=== PATIENT | male | born 1965 | race Hispanic/Latino ===

== ENCOUNTER 2018-10-10 08:05 | Day surgery (SDC) | payer BC ==
--- OUTSIDE RECORDS SUMMARY | 2018-10-10 08:09 | XMS REPORT ---
:1965 [facility] Address [address] [place] [address] [place] [address] Care Team Providers Name Role Phone DORIS GUS Unavailable Unavailable PROVIDER, ED TEMP Unavailable Unavailable Camron Estevez Unavailable Unavailable Problems This patient has no known problems. Allergies, Adverse Reactions, Alerts This patient has no known allergies or adverse reactions. Medications This patient has no known medications. Results Test Description Test Time Test Comments Text Results Atomic Results Result Comments Urinalysis 2017-11-23 00:23:00 Test Item Value Reference Range Comments Urinalysis (test code=UACLR) YELLOW Yellow Urinalysis (test code=UACLY) CLEAR Clear Urinalysis (test code=SPGR) 1.011 1.002-1.036 Urinalysis (test code=BRINA) 6.0 5.0-9.0 Urinalysis (test code=UALEU) Negative Negative Urinalysis (test code=UANIT) Negative Negative Urinalysis (test code=PROUADIP) Negative mg/dL Neg-Trace Urinalysis (test code=GLUCU) Negative mg/dL Negative Urinalysis (test code=KETU) Negative mg/dL Negative Urinalysis (test code=UAUROB) 0.2 mg/dL 0.2-1.0 Urinalysis (test code=UABIL) Negative Negative Urinalysis (test code=UABLD) Negative Negative Urine Source: Urine [id number] 22:00:00 Test Item Value Reference Range Comments Chemistry (test 1.3 ng/mL 0-6.6 code=CKMBM-T) Chemistry (test Less than 0.010 < 0.028 code=TROPI-T) ng/mL Reference Range 0.00 - 0.028 ng/mL Negative 0.029 - 0.29 ng/mL Indeterminate Greater or Equal to 0.3 ng/mL Strongly suggests [place] [id number] 19:21:00 Test Item Value Reference Range Comments Chemistry (test code=NA-T) 138 mmol/L 136-145 Chemistry (test code=K-T) 4.7 mmol/L 3.5-5.1 Chemistry (test code=CL) 106 mmol/L 98-107 Chemistry (test code=CO2) 26 mmol/L 22-29 Chemistry (test code=ANGP) 11 mmol/L 10-20 Chemistry (test code=BUN) 19 mg/dL 8.4-25.7 Chemistry (test code=CREATT) 1.06 mg/dL 0.6-1.3 Chemistry (test 73 Reference Range for Estimated code=EGFRMDRD) GFR: Greater than 90 mL/min/1.73 m2NOTE:The MDRD equation has not been validated for use with theelderly (over 70 years of age), women, patientswith serious comorbid condition or persons with extremes ofbody size, muscle mass, or nutritional status. Chemistry (test code=GLU-T) 101 mg/dL 70-105 Chemistry (test code=CA) 9.5 mg/dL 7.8-10.44 Chemistry (test code=TBILI) 0.6 mg/dL 0.2-1.2 Chemistry (test code=TP) 7.1 g/dL 6.0-8.3 Chemistry (test code=ALB) 4.1 g/dL 3.5-5.0 Chemistry (test code=GLOB) 3.0 g/dL 2.4-3.5 Chemistry (test code=AG) 1.4 g/dL 1.2-2.2 Chemistry (test code=ALP) 77 U/L 40-150 Chemistry (test code=AST) 24 U/L 5-34 Chemistry (test code=ALT) 29 U/L 8-55 [id number] 19:21:00 Test Item Value Reference Range Comments Chemistry (test code=LIP) 27 U/L 8-78 [id number] 18:58:00 Test Item Value Reference Range Comments Hematology (test code=WBCT) 5.9 thou/uL 4.8-10.8 Hematology (test code=RBCT) 4.48 mill/uL 4.70-6.10 Hematology (test code=HGBT) 14.5 g/dL 14.0-18.0 Hematology (test code=HCTT) 42.9 % 42.0-52.0 Hematology (test code=MCV) 95.9 fl 80.0-94.0 Hematology (test code=MCH) 32.3 pg 27.0-31.0 Hematology (test code=MCHC) 33.7 g/dL 32.0-36.0 Hematology (test code=RDW) 11.3 % 11.5-14.5 Hematology (test code=PLTT) 208 thou/uL 130-400 Hematology (test code=MPV) 7.4 fL 7.4-10.4 Hematology (test code=%NEUT) 69.9 % 42.0-75.0 Hematology (test code=%LYMPH) 17.0 % 21.0-51.0 Hematology (test code=%MONO) 10.2 % 0.0-10.0 Hematology (test code=%EOS) 2.8 % 0.0-10.0 Hematology (test code=%BASO) 0.1 % 0.0-1.0 Hematology (test code=NEUT#) 4.2 thou/uL 1.40-6.50 Hematology (test code=LYMPH#) 1.0 thou/uL 1.20-3.40 Hematology (test code=MONO#) 0.6 thou/uL 0.11-0.59 Hematology (test code=EOS#) 0.2 thou/uL 0.0-0.7 Hematology (test code=BASO#) 0.0 thou/uL 0.0-0.2 [id number] 14:29:00 Test Item Value Reference Range Comments Urinalysis (test code=UACLR) YELLOW Yellow Urinalysis (test code=UACLY) CLEAR Clear Urinalysis (test code=SPGR) 1.026 1.002-1.036 Urinalysis (test code=BRINA) 6.0 5.0-9.0 Urinalysis (test code=UALEU) Negative Negative Urinalysis (test code=UANIT) Negative Negative Urinalysis (test code=PROUADIP) Negative mg/dL Neg-Trace Urinalysis (test code=GLUCU) Negative mg/dL Negative Urinalysis (test code=KETU) Negative mg/dL Negative Urinalysis (test code=UAUROB) 0.2 mg/dL 0.2-1.0 Urinalysis (test code=UABIL) Negative Negative Urinalysis (test code=UABLD) Negative Negative Urine Source: Urine [id number] 13:32:00 Test Item Value Reference Range Comments Chemistry (test code=NA-T) 138 mmol/L 136-145 Chemistry (test code=K-T) 4.2 mmol/L 3.5-5.1 Chemistry (test code=CL) 104 mmol/L 98-107 Chemistry (test code=CO2) 28 mmol/L 22-29 Chemistry (test code=ANGP) 10 mmol/L 10-20 Chemistry (test code=BUN) 16 mg/dL 8.4-25.7 Chemistry (test code=CREATT) 0.93 mg/dL 0.6-1.3 Chemistry (test 86 Reference Range for Estimated code=EGFRMDRD) GFR: Greater than 90 mL/min/1.73 m2NOTE:The MDRD equation has not been validated for use with theelderly (over 70 years of age), women, patientswith serious comorbid condition or persons with extremes ofbody size, muscle mass, or nutritional status. Chemistry (test code=GLU-T) 144 mg/dL 70-105 Chemistry (test code=CA) 9.7 mg/dL 7.8-10.44 Chemistry (test code=TBILI) 0.8 mg/dL 0.2-1.2 Chemistry (test code=TP) 7.4 g/dL 6.0-8.3 Chemistry (test code=ALB) 4.0 g/dL 3.5-5.0 Chemistry (test code=GLOB) 3.4 g/dL 2.4-3.5 Chemistry (test code=AG) 1.2 g/dL 1.2-2.2 Chemistry (test code=ALP) 91 U/L 40-150 Chemistry (test code=AST) 22 U/L 5-34 Chemistry (test code=ALT) 37 U/L 8-55 [id number] 13:10:00 Test Item Value Reference Range Comments Hematology (test code=WBCT) 7.1 thou/uL 4.8-10.8 Hematology (test code=RBCT) 4.78 mill/uL 4.70-6.10 Hematology (test code=HGBT) 15.6 g/dL 14.0-18.0 Hematology (test code=HCTT) 46.2 % 42.0-52.0 Hematology (test code=MCV) 96.6 fl 80.0-94.0 Hematology (test code=MCH) 32.6 pg 27.0-31.0 Hematology (test code=MCHC) 33.7 g/dL 32.0-36.0 Hematology (test code=RDW) 11.6 % 11.5-14.5 Hematology (test code=PLTT) 210 thou/uL 130-400 Hematology (test code=MPV) 7.2 fL 7.4-10.4 Hematology (test code=%NEUT) 86.3 % 42.0-75.0 Hematology (test code=%LYMPH) 6.3 % 21.0-51.0 Hematology (test code=%MONO) 4.8 % 0.0-10.0 Hematology (test code=%EOS) 1.9 % 0.0-10.0 Hematology (test code=%BASO) 0.7 % 0.0-1.0 Hematology (test code=NEUT#) 6.2 thou/uL 1.40-6.50 Hematology (test code=LYMPH#) 0.5 thou/uL 1.20-3.40 Hematology (test code=MONO#) 0.3 thou/uL 0.11-0.59 Hematology (test code=EOS#) 0.1 thou/uL 0.0-0.7 Hematology (test code=BASO#) 0.1 thou/uL 0.0-0.2 [id number] 14:04:00 Test Item Value Reference Range Comments Urinalysis (test code=UACLR) YELLOW Yellow Urinalysis (test code=UACLY) CLEAR Clear Urinalysis (test code=SPGR) 1.040 1.002-1.036 Urinalysis (test code=BRINA) 6.0 5.0-9.0 Urinalysis (test code=UALEU) Negative Negative Urinalysis (test code=UANIT) Negative Negative Urinalysis (test code=PROUADIP) Negative mg/dL Neg-Trace Urinalysis (test code=GLUCU) Negative mg/dL Negative Urinalysis (test code=KETU) Negative mg/dL Negative Urinalysis (test code=UAUROB) 0.2 mg/dL 0.2-1.0 Urinalysis (test code=UABIL) Negative Negative Urinalysis (test code=UABLD) Negative Negative Urine Source: Urine [id number] 12:39:00 Test Item Value Reference Range Comments Chemistry (test code=NA-T) 141 mmol/L 136-145 Chemistry (test code=K-T) 3.9 mmol/L 3.5-5.1 Chemistry (test code=CL) 108 mmol/L 98-107 Chemistry (test code=CO2) 26 mmol/L 22-29 Chemistry (test code=ANGP) 11 mmol/L 10-20 Chemistry (test code=BUN) 13 mg/dL 8.4-25.7 Chemistry (test code=CREATT) 0.93 mg/dL 0.6-1.3 Chemistry (test 86 Reference Range for Estimated code=EGFRMDRD) GFR: Greater than 90 mL/min/1.73 m2NOTE:The MDRD equation has not been validated for use with theelderly (over 70 years of age), women, patientswith serious comorbid condition or persons with extremes ofbody size, muscle mass, or nutritional status. Chemistry (test code=GLU-T) 111 mg/dL 70-105 Chemistry (test code=CA) 9.0 mg/dL 7.8-10.44 Chemistry (test code=TBILI) 0.7 mg/dL 0.2-1.2 Chemistry (test code=TP) 6.8 g/dL 6.0-8.3 Chemistry (test code=ALB) 3.8 g/dL 3.5-5.0 Chemistry (test code=GLOB) 3.0 g/dL 2.4-3.5 Chemistry (test code=AG) 1.3 g/dL 1.2-2.2 Chemistry (test code=ALP) 73 U/L 40-150 Chemistry (test code=AST) 17 U/L 5-34 Chemistry (test code=ALT) 18 U/L 8-55 [id number] 12:39:00 Test Item Value Reference Range Comments Chemistry (test code=LIP) 55 U/L 8-78 [id number] 12:16:00 Test Item Value Reference Range Comments Hematology (test code=WBCT) 4.1 thou/uL 4.8-10.8 Hematology (test code=RBCT) 4.42 mill/uL 4.70-6.10 Hematology (test code=HGBT) 14.1 g/dL 14.0-18.0 Hematology (test code=HCTT) 42.3 % 42.0-52.0 Hematology (test code=MCV) 95.8 fl 80.0-94.0 Hematology (test code=MCH) 31.9 pg 27.0-31.0 Hematology (test code=MCHC) 33.3 g/dL 32.0-36.0 Hematology (test code=RDW) 11.3 % 11.5-14.5 Hematology (test code=PLTT) 202 thou/uL 130-400 Hematology (test code=MPV) 7.5 fL 7.4-10.4 Hematology (test code=%NEUT) 77.2 % 42.0-75.0 Hematology (test code=%LYMPH) 14.3 % 21.0-51.0 Hematology (test code=%MONO) 6.1 % 0.0-10.0 Hematology (test code=%EOS) 2.0 % 0.0-10.0 Hematology (test code=%BASO) 0.4 % 0.0-1.0 Hematology (test code=NEUT#) 3.1 thou/uL 1.40-6.50 Hematology (test code=LYMPH#) 0.6 thou/uL 1.20-3.40 Hematology (test code=MONO#) 0.3 thou/uL 0.11-0.59 Hematology (test code=EOS#) 0.1 thou/uL 0.0-0.7 Hematology (test code=BASO#) 0.0 thou/uL 0.0-0.2
--- NOTE | 2018-10-10 08:26 | EKG ---
Test Date: 2018-10-10 Test Time: 08:08:22 Boat Engines Installer: ELVIN MEASUREMENT RESULTS: Intervals: Rate: 53 WA: 160 QRSD: 88 QT: 414 QTc: 388 [place]: P: 0 WA: 160 QRS: 4 T: 40 INTERPRETIVE STATEMENTS: Sinus bradycardia Otherwise normal ECG Compared to ECG 11/27/2016 09:55:33 Sinus rhythm no longer present Electronically Signed On 10-10-18 08:26:06 TELEGRAPHIC TYPEWRITER MECHANIC by Osmin Moya
[2018-10-10 08:34] LABS: Absolute Lymphocytes (CBC) 0.7 K/uL (0.7-4.9); Absolute Monocytes 0.5 K/uL (0.1-1.3); Absolute Neutrophil 4.5 K/uL (1.8-8.0); Basophils % 1.3 % (0-1.3); Eosinophils % 2.8 % (0-4.4); Hematocrit 41.7 % (39.6-49.0); Lymphocytes % 11.4 % (15.3-44.8); MCH 32.5 pg (27.0-35.0); MCV 91.5 fL (80-100); Monocytes % 7.9 % (3.3-12.3); RBC Red Blood Cell Count 4.56 M/uL (4.33-5.43)
[2018-10-10] MEDS ORDERED: Ringers Lactate 1,000 ML IV ONE (08:46)
[2018-10-10] MEDS ORDERED: PROPOFOL 200 MG/20 ML VIAL IV ONE (09:01)
[2018-10-10] MEDS ORDERED: MIDAZOLAM HCL 2 MG/2 ML INJ ONE (09:01)
[2018-10-10] MEDS ORDERED: FENTANYL CITR 100 MCG/2 ML ONE (09:01)
[2018-10-10] MEDS ORDERED: LIDOCAINE 2% MPF 5 ML VIAL ONE (09:01)
[2018-10-10] MEDS ORDERED: ROCURONIUM 50 MG/5 ML VIAL IV ONE (09:02)
[2018-10-10] MEDS ORDERED: ONDANSETRON HCL 40 MG/20 ML VIAL ONE (09:02)
[2018-10-10] MEDS ORDERED: LIDOCAINE 1% W/EPI 1:100,000 MDV 50 ML VIAL ONE (09:46)
[2018-10-10] MEDS ORDERED: EPINEPHRINE/PF 1 MG/ML AMP ONE (09:47)
--- NOTE | 2018-10-10 10:31 | P.BOP ---
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
[2018-10-10] MEDS ORDERED: GLYCOPYRROLATE 0.2 MG/ML SYR ONE (10:32)
[2018-10-10] MEDS ORDERED: NEOSTIGMINE 1 MG/ML -5 ML SYRINGE ONE (10:34)
[2018-10-10 11:35] VITALS: BP 95/56; TEMP 97.6; O2SAT 100
--- NOTE | 2018-10-12 01:46 | OP ---
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 Postoperative Diagnosis: History of nasopharyngeal cancer, concern for recurrence based on symptomol ogy. Pathology: Pending. No clinical evidence of recurrence. Indication For Procedure: Mr. 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 He presented with recurrence of symptoms similar to the time of his original diagnosis with a clinical exam in the office demonstrating very thick mucus overlying the n asopharynx and preventing full examination of the mucosal surface with poor tolerance of suctioning a nd office biopsy. The risks, benefits, and alternatives to the procedure were discussed with the pat ient who agreed to proceed. Description Of Procedure: The patient was brought to the operating room. He was placed under genera l anesthesia. The head of bed was turned 90 degrees. The nasal hairs were trimmed and the nasal cav ity was packed with Afrin-soaked pledgets. After time for effect, a 0-degree endoscope was used to p erform a nasal endoscopy with nasopharyngoscopy. There were thick mucopurulent secretions, which wer e very sticky adherent to the posterior pharyngeal wall. The secretions were carefully suctioned. T here was a scar along the posterior wall with small areas of inflammation superiorly. There was no u lceration or gross tumor noted. A large cup forceps was used to take a biopsy from the right and lef t nasopharyngeal wall along the posterior aspect. These were sent as 2 separate specimens to patholo gy for permanent section. An Afrin-soaked pledget was applied to the biopsy site for several minutes , then removed. The area was suctioned. There was no significant bleeding and the procedure was con cluded. The patient was then returned to care of anesthesia for awakening and extubation in the oper ating room, which proceeded without difficulty. The patient will be discharged home later today and follow up with Dr. Bernard as needed. I will plan to contact the patient via telephone regarding biopsy results. ISAEL Voice ID: [id number] Report ID: [id number]
== END 2018-10-10 12:15 | disposition home or self-care (01) ==
LOC: OR 08:05
PROVIDERS: ATTEND Otolaryngology
PROC: 09BN8ZX Excision of Nasopharynx, Via Natural or Artificial Opening Endoscopic, Diagnostic (ICD-10-PCS; principal; 2018-10-10 09:30)
DX: Z85.22 Personal history of malignant neoplasm of nasal cavities, middle ear, and accessory sinuses (principal); Z85.818 Personal history of malignant neoplasm of other sites of lip, oral cavity, and pharynx; Z92.21 Personal history of antineoplastic chemotherapy; Z92.3 Personal history of irradiation; F17.210 Nicotine dependence, cigarettes, uncomplicated; E03.9 Hypothyroidism, unspecified; K21.9 Gastro-esophageal reflux disease without esophagitis
CPT/HCPCS: 36415; 85025; 88305; 93005; J0171; J2250; J2405; J2704; J2710; J3010

== ENCOUNTER 2019-03-13 07:43 | Day surgery (SDC) | payer OTHER ==
--- OUTSIDE RECORDS SUMMARY | 2019-03-13 07:55 | XMS REPORT ---
:1965 [facility] Address [address] [place] [address] [place] [address] Care Team Providers Name Role Phone DORIS, GUS Unavailable Unavailable PROVIDER, ED TEMP Unavailable Unavailable GoenCamron Unavailable Unavailable Problems This patient has no [...] (test code=UABLD) Negative Negative Urine Source: Urine [id number] 22:00:00 Test Item Value Reference Range Comments Chemistry (test 1.3 ng/mL 0-6.6 code=CKMBM-T) Chemistry (test Less than 0.010 < 0.028 code=TROPI-T) ng/mL Reference Range 0.00 - 0.028 ng/mL Negative 0.029 - 0.29 ng/mL Indeterminate Greater or Equal to 0.3 ng/mL Strongly suggests [place] [id number] 19:21:00 Test Item Value Reference Range Comments [...] 5-34 Chemistry (test code=ALT) 29 U/L 8-55 [id number] 19:21:00 Test Item Value Reference Range Comments Chemistry (test code=LIP) 27 U/L 8-78 [id number] 18:58:00 Test Item Value Reference Range Comments [...] 0.0-0.7 Hematology (test code=BASO#) 0.0 thou/uL 0.0-0.2 [id number] 14:29:00 Test Item Value Reference Range Comments [...] (test code=UABLD) Negative Negative Urine Source: Urine [id number] 13:32:00 Test Item Value Reference Range Comments [...] 5-34 Chemistry (test code=ALT) 37 U/L 8-55 [id number] 13:10:00 Test Item Value Reference Range Comments [...] 0.0-0.7 Hematology (test code=BASO#) 0.1 thou/uL 0.0-0.2 [id number] 14:04:00 Test Item Value Reference Range Comments [...] (test code=UABLD) Negative Negative Urine Source: Urine [id number] 12:39:00 Test Item Value Reference Range Comments [...] 5-34 Chemistry (test code=ALT) 18 U/L 8-55 [id number] 12:39:00 Test Item Value Reference Range Comments Chemistry (test code=LIP) 55 U/L 8-78 [id number] 12:16:00 Test Item Value Reference Range Comments [...]
[2019-03-13] MEDS ORDERED: Ringers Lactate 1,000 ML IV ONE (08:31)
[2019-03-13] MEDS ORDERED: LIDOCAINE 1% MPF 5 ML VIAL ONE (09:15)
[2019-03-13] MEDS ORDERED: PROPOFOL 200 MG/20 ML VIAL IV ONE (09:15)
--- NOTE | 2019-03-13 09:53 | ENDO RPT ---
[address], [address] EGD PROCEDURE REPORT EXAM DATE: 03/13/2019 PATIENT NAME: Miguel Gonzalez MR#: [id number] BIRTHDATE: 1965 ATTENDING: Wiliam Price DR STATUS: outpatient BUGGYMAN: Galilea Wahl RN, Meño Melgoza, Milton Ryder RN, and Daphnie Melgoza INDICATIONS: The patient is a 53 yr old Male here for an EGD due to mid epigastric abdominal pain PROCEDURE PERFORMED: EGD with biopsy for H. pylori MEDICATIONS: Per Anesthesia. TOPICAL ANESTHETIC: none CONSENT: The patient understands the risks and benefits of the procedure and understands that these risks include, but are not limited to: sedation, allergic reaction, infection, perforation and/or bleeding. Alternative means of evaluation and treatment include, among others: physical exam, x-rays, and/or surgical intervention. The patient elects to proceed with this endoscopic procedure. DESCRIPTION OF PROCEDURE: During intra-op preparation period all mechanical medical equipment was checked for proper function. Hand hygiene and appropriate measures for infection prevention was taken. Procedure, possible complications, and alternatives including but not limited to the possibility of bleeding, perforation, tear, infection, sepsis, need for surgery, need for blood transfusion, and anesthesia related complications were explained to the patient. After the risks, benefits and alternatives of the procedure were thoroughly explained, Informed consent was verified, confirmed and timeout was successfully executed by the treatment team. The patient was placed in the left lateral position. The patient was anesthetized with topical anesthesia. Through the anesthetized oropharyngeal area, the scope was passed without any difficulty. The [id number] ([id number]) endoscope was introduced through the mouth and advanced to the second portion of the duodenum. Retroflexed views revealed no abnormalities. The gastroscope was then slowly withdrawn and removed. The mid and distal esophagus had appearance of eosinophlic esophagitis, the distal esophagus had LA class A esophagitis appearance with intermittent linear streaking. The stomach and multiple erosions at the pylorus. A biopsy for H. pylori was taken. A pedunculated polyp was found in the bulb of the duodenum which was about 2 cm in size and erythematous, polypoid, red in appearance. It was too large to be snared and therefore a biopsy was performed with standard forceps, Duodenitis was also noted in the duodenal bulb. ADVERSE EVENTS: There were no complications. IMPRESSIONS: 1. Multiple erosions were found at the pylorus 2. LA Class A esophagitis was found in the lower esophagus 3. Eosinophilic Esophagitis Appearance 4. 2 cm A pedunculated polyp was found in the bulb of the duodenum RECOMMENDATIONS: 1. acid suppression therapy 2. anti-reflux regimen 3. await biopsy results 4. follow-up: office 2 week(s) 5. avoid NSAIDS 6. follow-up of helicobacter pylori status, treat if indicated 7. CT scan REPEAT EXAM: Return in 2 week(s) for EGD. Will refer to GI Wiliam Price DR eSigned: Wiliam Price DR 03/13/2019 9:52 AM cc: CPT CODES: ICD9 CODES: PATIENT NAME: Miguel Gonzalez MR#: [id number]
--- NOTE | 2019-03-13 09:55 | ENDO RPT ---
[address], [address] COLONOSCOPY PROCEDURE REPORT EXAM DATE: 03/13/2019 PATIENT NAME: Miguel Gonzalez MR #: [id number] BIRTHDATE: 1965 ATTENDING: Wiliam Price DR STATUS: outpatient IMMIGRATION SERVICES OFFICER: Meño Melgoza, Daphnie Melgoza, Milton Ryder RN, and Galilea Wahl RN INDICATIONS: The patient is a 53 yr old Male here for a colonoscopy due to colon cancer screening PROCEDURE PERFORMED: Colonoscopy with biopsy - cold polypectomy MEDICATIONS: Per Anesthesia. ESTIMATED BLOOD LOSS: None CONSENT: The patient understands the risks and benefits of the procedure and understands that these risks include, but are not limited to: sedation, allergic reaction, infection, perforation and/or bleeding. Alternative means of evaluation and treatment include, among others: physical exam, x-rays, and/or surgical intervention. The patient elects to proceed with this endoscopic procedure. DESCRIPTION OF PROCEDURE: During intra-op preparation period all mechanical medical equipment was checked for proper function. Hand hygiene and appropriate measures for infection prevention was taken. Procedure, possible complications, alternatives including, but not limited to possibility of bleeding, perforation, tear, infection, sepsis, need for surgery, need for blood transfusion, were explained to the patient. After the risks, benefits and alternatives of the procedure were thoroughly explained, Informed consent was verified, confirmed and timeout was successfully executed by the treatment team. The patient was placed in the left lateral position. A digital rectal exam was performed and revealed internal hemorrhoids and A digital rectal exam was performed and revealed an enlarged prostate. After appropriate level of anesthesia, the scope was passed. The [id number] ([id number]) endoscope was introduced through the anus and advanced to the cecum, which was identified by both the appendix and ileocecal valve. The quality of the prep was fair. The instrument was then slowly withdrawn as the colon was fully examined. Scope withdrawal time was 10 minutes. COLON FINDINGS: A small smooth sessile polyp with a friable surface was found at the hepatic flexure. A polypectomy was performed with cold forceps. The resection was complete, the polyp tissue was completely retrieved and sent to histology. Small internal hemorrhoids were found. Retroflexed views revealed no abnormalities. The scope was then completely withdrawn from the patient and the procedure terminated. ADVERSE EVENTS: There were no complications. IMPRESSIONS: 1. Small sessile polyp was found at the hepatic flexure; polypectomy was performed in a piecemeal fashion with cold forceps 2. Small internal hemorrhoids RECOMMENDATIONS: 1. avoid NSAIDS 2. await biopsy results 3. fiber rich diet 4. follow-up: office 2 week(s) 5. Monitor for any evidence of rectal bleeding. 6. See EGD report. 7. CT scan 8. yearly hemoccult starting in 4 years 9. yearly hemoquant 10. hemorrhoidal hygiene RECALL: for Colonoscopy, pending biopsy results. Wiliam Price DR eSigned: Wiliam Price DR 03/13/2019 9:54 AM cc: CPT CODES: ICD9 CODES: PATIENT NAME: Miguel Gonzalez MR#: [id number]
[2019-03-13 11:03] VITALS: BP 116/75; TEMP 97.8; O2SAT 98
== END 2019-03-13 10:30 | disposition home or self-care (01) ==
LOC: OR 07:43
PROVIDERS: ATTEND Surgery
PROC: 0DB78ZX Excision of Stomach, Pylorus, Via Natural or Artificial Opening Endoscopic, Diagnostic (ICD-10-PCS; 2019-03-13)
PROC: 0DB58ZX Excision of Esophagus, Via Natural or Artificial Opening Endoscopic, Diagnostic (ICD-10-PCS; 2019-03-13)
PROC: 0DBL8ZX Excision of Transverse Colon, Via Natural or Artificial Opening Endoscopic, Diagnostic (ICD-10-PCS; principal; 2019-03-13 09:15)
PROC: 0DB98ZX Excision of Duodenum, Via Natural or Artificial Opening Endoscopic, Diagnostic (ICD-10-PCS; 2019-03-13 09:15)
DX: Z12.11 Encounter for screening for malignant neoplasm of colon (principal); D12.3 Benign neoplasm of transverse colon; K64.8 Other hemorrhoids; K29.80 Duodenitis without bleeding; K29.50 Unspecified chronic gastritis without bleeding; K21.0 Gastro-esophageal reflux disease with esophagitis; K31.7 Polyp of stomach and duodenum; K25.9 Gastric ulcer, unspecified as acute or chronic, without hemorrhage or perforation; E55.9 Vitamin D deficiency, unspecified; Z87.891 Personal history of nicotine dependence
CPT/HCPCS: 88305; 88312; J2704

== ENCOUNTER 2019-06-20 10:18 | Emergency (ER) | payer OTHER ==
--- OUTSIDE RECORDS SUMMARY | 2019-06-20 10:21 | XMS REPORT ---
:1965 [facility] Address [address] [place] [address] [place] [address] Care Team Providers Name Role Phone DORISGUS FITCH Unavailable Unavailable PROVIDER, ED TEMP Unavailable Unavailable [...] (test code=UABLD) Negative Negative Urine Source: Urine [id number] 22:00:00 Test Item Value Reference Range Comments Chemistry (test 1.3 ng/mL 0-6.6 code=CKMBM-T) Chemistry (test Less than 0.010 < 0.028 code=TROPI-T) ng/mL Reference Range 0.00 - 0.028 ng/mL Negative 0.029 - 0.29 ng/mL Indeterminate Greater or Equal to 0.3 ng/mL Strongly suggests [place] [id number] 19:21:00 Test Item Value Reference Range Comments [...] 5-34 Chemistry (test code=ALT) 29 U/L 8-55 [id number] 19:21:00 Test Item Value Reference Range Comments Chemistry (test code=LIP) 27 U/L 8-78 [id number] 18:58:00 Test Item Value Reference Range Comments [...] 0.0-0.7 Hematology (test code=BASO#) 0.0 thou/uL 0.0-0.2 [id number] 14:29:00 Test Item Value Reference Range Comments [...] (test code=UABLD) Negative Negative Urine Source: Urine [id number] 13:32:00 Test Item Value Reference Range Comments [...] 5-34 Chemistry (test code=ALT) 37 U/L 8-55 [id number] 13:10:00 Test Item Value Reference Range Comments [...] 0.0-0.7 Hematology (test code=BASO#) 0.1 thou/uL 0.0-0.2 [id number] 14:04:00 Test Item Value Reference Range Comments [...] (test code=UABLD) Negative Negative Urine Source: Urine [id number] 12:39:00 Test Item Value Reference Range Comments [...] 5-34 Chemistry (test code=ALT) 18 U/L 8-55 [id number] 12:39:00 Test Item Value Reference Range Comments Chemistry (test code=LIP) 55 U/L 8-78 [id number] 12:16:00 Test Item Value Reference Range Comments [...]
--- OUTSIDE RECORDS SUMMARY | 2019-06-20 10:21 | XMS REPORT | Summary of Care ---
:1965 Author Organization [facility] - [facility] Address [address] [place] [id number] Care Team Providers Name Role Phone Pcp, Patient Does Not Have A Primary Care Provider Reason for Visit Reason Comments Rash Auth/Cert Status Reason Specialty Diagnoses / Referred By Referred To Procedures Contact Contact [facility] [address] [place] [address] [place] [id number] Encounter Details Date Type Department Care Team Description 06/01/2019 Emergency [facility]Emergency Froilan Wynn DO Irritant contact Department [address] [place] [address]. dermatitis due to [address] [place] [address] RT 0711 plants, except food [place], [place] [id number] [place] [id number] (Primary Dx) [phone] Allergies Active Allergy Reactions Severity Noted Date Comments Penicillin Swelling 02/10/2016 documented as of this encounter (statuses as of 06/01/2019) Medications Medication Sig Dispensed Refills Start Date End Date Status methylPREDNISolone Take by mouth 21 Each 0 06/01/2019 Active (MEDROL, AMELIA,) 4 mg SEE-INSTRUCTIONS tabletsIndications: . follow package Irritant contact directions dermatitis due to plants, except food permethrin 5 % Apply to 1 Tube 0 06/01/2019 Active creamIndications: area(s) once now 9 Irritant contact for 1 dose. dermatitis due to plants, except food documented as of this encounter (statuses as of 06/01/2019) Active Problems Not on filedocumented as of this encounter (statuses as of 06/01/2019) Social History Tobacco Use Types Packs/Day Years Used Date Never Assessed Sex Assigned at Date Recorded Not on file Job Start Date Occupation Industry Not on file Not on file Not on file Travel History Travel Start Travel End No recent travel history available. documented as of this encounter Last Filed Vital Signs Vital Sign Reading Time Taken Comments Blood Pressure 142/85 06/01/2019 8:48 AM CDT Pulse 87 06/01/2019 8:48 AM CDT Temperature 36.8 C (98.3 F) 06/01/2019 8:48 AM CDT Respiratory Rate 18 06/01/2019 8:48 AM CDT Oxygen Saturation 97% 06/01/2019 8:48 AM CDT Inhaled Oxygen Concentration - - Weight 90.7 kg (200 lb) 06/01/2019 8:48 AM CDT Height - - Body Mass Index 26.39 02/10/2016 5:09 PM CDT documented in this encounter Discharge Instructions Froilan Cabrera DO - 06/01/2019 DIAGNOSIS Diagnoses that have been ruled out: None Diagnoses that are still under consideration: None Final diagnoses: Irritant contact dermatitis due to plants, except food NO LIFE-THREATENING FINDINGS ON TODAY'S EXAM. PROCEDURES IN THE ER TODAY: No orders of the defined types were placed in this encounter. MEDICATIONS ADMINISTERED IN THE ER TODAY AND DISCHARGE MEDICATIONS: Orders Placed This Encounter Medications methylPREDNISolone (MEDROL, AMELIA,) 4 mg tablets permethrin 5 % cream FOLLOW-UP RECOMMENDATIONS: RECOMMEND FOLLOW-UP WITH A PRIMARY CARE PROVIDER OR SPECIALIST IN 2-5 DAYS, ESPECIALLY IF NO IMPROVEMENT IN SYMPTOMS. MAY FOLLOW-UP WITH A PROVIDER OF YOUR CHOICE, SUCH : 1. A PHYSICIAN OF YOUR CHOICE 2. [facility], . LOCATIONS IN [facility] 3. [facility], [address] [place] [address]; [phone] OR, IF YOU WISH TO FOLLOW-UP WITHIN THE [facility], MAY TRY THESE OPTIONS (CLINIC APPOINTMENTS AVAILABLE ON JRKP-GO-OLIV BASIS): 1. SCHEDULE AN APPOINTMENT ONLINE AT [email or web address] 2. OR CALL THE [facility] AT OR 3. OR CALL YOUR [facility] PHYSICIAN'S OFFICE DIRECTLY IF YOU ARE ALREADY AN ESTABLISHED [facility] PATIENT. RETURN TO ER FOR WORSENING OF SYMPTOMS. documented in this encounter Plan of Treatment Health Maintenance Due Date Last Done Comments HEPATITIS C (HCV) SCREEN 1965 DTaP,Tdap,and Td Vaccines (1 - 1984 Tdap) COLONOSCOPY 2015 Zoster Recombinant Vaccine 2015 (SHINGRIX) (1 of 2) INFLUENZA VACCINE 07/05/2019 PNEUMOCOCCAL 0-64 YEARS COMBINED Aged Out No longer eligible based on SERIES patient's age to complete this topic documented as of this encounter Procedures Procedure Name Priority Date/Time Associated Diagnosis Comments NOTICE OF PRIVACY Routine 06/01/2019 8:36 AM CDT PRACTICES CONSENT/REFUSAL FOR Routine 06/01/2019 8:36 AM CDT DIAGNOSIS AND TREATMENT documented in this encounter Results Not on filedocumented in this encounter Visit Diagnoses Diagnosis Irritant contact dermatitis due to plants, except food - Primary Contact dermatitis and other eczema due to plants (except food) documented in this encounter (Home) [place] [address] documented as of this encounter
[2019-06-20] MEDS ORDERED: NA CHLORIDE 0.9% 1,000 ML ONE ×2 (11:15→13:49)
[2019-06-20] MEDS ORDERED: PROMETHAZINE 25 MG/ML VIAL ONE (11:15)
[2019-06-20 11:23] LABS: Absolute Lymphocytes (CBC) 0.8 K/uL (0.7-4.9); Basophils % 1.3 % (0-1.3); Hematocrit 39.9 % (39.6-49.0); Lymphocytes % 14.5 % (15.3-44.8); MPV 8.7 fL (7.6-11.3); RBC Red Blood Cell Count 4.32 M/uL (4.33-5.43)
[2019-06-20 11:49] LABS: Albumin 3.4 g/dL (3.4-5.0); Bilirubin Direct 0.2 mg/dL (0-0.2); Bilirubin Total 0.5 mg/dL (0.2-1.0); Potassium 3.8 mmol/L (3.5-5.1); Protein, Total 6.7 g/dL (6.4-8.2)
[2019-06-20 11:56] LABS: Urine Blood 1+ (NEG); Urine Glucose NEGATIVE (NEG); Urine Protein NEGATIVE (NEG); Urine Specific Gravity 1.025 (1.005-1.030); Urine pH 5.5 (5.0-7.0)
[2019-06-20 11:56] LABS: Urine Bacteria <20 /HPF (NONE SEEN); Urine Culture Reflex Order NOT NEEDED; Urine Mucus 4+ /HPF (NONE SEEN)
[2019-06-20 13:02] LABS: Thyroid Stimulating Hormone 3.64 uIU/mL (0.360-3.740)
--- NOTE | 2019-06-20 13:27 | RAD REPORT ---
EXAM DESCRIPTION: CTAbdomen Pelvis W Contrast - 06/20/2019 1:07 pm CLINICAL HISTORY: Abdominal pain. ABD PAIN COMPARISON: CT ABD PELVIS W CONTRAST dated 05/01/2014; CT ABD PELVIS W CONTRAST dated 04/04/2013; CT AB D PELVIS W CONTRAST dated 12/22/2011 TECHNIQUE: Biphasic CT imaging of the abdomen and pelvis was performed with 100 ml non-ionic IV cont rast. All CT scans are performed using dose optimization technique as appropriate and may include automated exposure control or mA/KV adjustment according to patient size. FINDINGS: Emphysematous changes are present in the lung bases. The liver, spleen, pancreas, adrenal glands and kidneys are within normal limits. Cholecystectomy cli ps. No bowel obstruction, free air, free fluid or abscess. Moderate stool in the colon. The appendix is n ormal. No evidence of significant lymphadenopathy. No suspicious bony findings. IMPRESSION: No acute intra-abdominal or pelvic finding.
[2019-06-20] MEDS ORDERED: BISACODYL E.C. 5 MG TAB PO ONE (13:48)
[2019-06-20] MEDS ORDERED: BISACODYL 10 MG RECTAL SUPP ONE (13:49)
--- NOTE | 2019-06-20 14:33 | ER ---
Nurse's Notes [facility] Name: Miguel Gonzalez Age: 53 yrs Sex: Male : 1965 Arrival Date: 06/20/2019 Time: 10:21 Bed 6 Private MD: None, None Diagnosis: Volume depletion;Hematuria, unspecified;Constipation, unspecified Presentation: 06/20 10:36 Presenting complaint: Malaise and generalized weakness x 1 week, maribell blood in urine hb and LLQ pain this morning. Pt also reports small bowel mass to be removed next week. Transition of care: patient was not received from another setting of care. Onset of symptoms was June 20, 2019. Risk Assessment: Do you want to hurt yourself or someone else? Patient reports no desire to harm self or others. Initial Sepsis Screen: Does the patient meet any 2 criteria? No. Patient's initial sepsis screen is negative. Does the patient have a suspected source of infection? No. Patient's initial sepsis screen is negative. Care prior to arrival: None. 10:36 Method Of Arrival: Ambulatory hb 10:36 Acuity: NASRA 3 hb Triage Assessment: 10:38 General: Appears in no apparent distress. Behavior is calm, cooperative. Pain: Pain hb currently is 10 out of 10 on a pain scale. EENT: No signs and/or symptoms were reported regarding the EENT system. Neuro: Level of Consciousness is awake, alert, obeys commands, Oriented to person, place, time, situation. Cardiovascular: Capillary refill < 3 seconds Patient's skin is warm and dry. Respiratory: Airway is patent Respiratory effort is even, unlabored, Respiratory pattern is regular, symmetrical. GI: Reports lower abdominal pain. : Reports blood in urine. Derm: Skin is intact, is healthy with good turgor. Musculoskeletal: No signs and/or symptoms reported regarding the musculoskeletal system. Historical: - Allergies: 10:38 PENICILLINS; hb - Home Meds: 10:38 None [Active]; hb - PMHx: 10:38 radiation treatment; throat cancer; hb - PSHx: 10:38 Cholecystectomy; Hernia repair; feeding tube; Left Foot; Left Arm; hb - Immunization history:: Adult Immunizations up to date. - Social history:: Smoking status: Patient/guardian denies using tobacco. - Ebola Screening: : No symptoms or risks identified at this time. Screenin:40 Abuse screen: Denies threats or abuse. Denies injuries from another. Nutritional hb screening: No deficits noted. Tuberculosis screening:. Fall Risk None identified. Assessment: 10:40 General: see triage assessment. hb 11:00 Reassessment: Patient appears in no apparent distress at this time. No changes from hb previously documented assessment. Patient and/or family updated on plan of care and expected duration. Pain level reassessed. Patient is alert, oriented x 3, equal unlabored respirations, skin warm/dry/pink. 12:00 Reassessment: Patient appears in no apparent distress at this time. No changes from hb previously documented assessment. Patient and/or family updated on plan of care and expected duration. Pain level reassessed. Patient is alert, oriented x 3, equal unlabored respirations, skin warm/dry/pink. 13:00 Reassessment: Patient appears in no apparent distress at this time. No changes from hb previously documented assessment. Patient and/or family updated on plan of care and expected duration. Pain level reassessed. Patient is alert, oriented x 3, equal unlabored respirations, skin warm/dry/pink. 14:26 Reassessment: Patient appears in no apparent distress at this time. Patient and/or rv family updated on plan of care and expected duration. Pain level reassessed. Patient is alert, oriented x 3, equal unlabored respirations, skin warm/dry/pink. patient refused Bisacodyl suppository. referred to Sylvia. patient able to ambulate on the way to the restroom. Vital Signs: 10:38 BP 119 / 84; Pulse 89; Resp 16; Temp 97.9; Pulse Ox 100% on R/A; Weight 77.11 kg; hb Height 5 ft. 8 in. (172.72 cm); Pain 10/10; 11:00 BP 105 / 81; Pulse 55; Resp 14; Pulse Ox 100% on R/A; hb 12:00 BP 91 / 66; Pulse 55; Resp 16; Pulse Ox 99% on R/A; hb 13:00 BP 94 / 74; Pulse 66; Resp 16; Pulse Ox 98% on R/A; hb 13:30 BP 94 / 74; Pulse 49; Resp 15; Pulse Ox 100% on R/A; rv 14:00 BP 118 / 86; Pulse 58; Resp 15; Pulse Ox 99% on R/A; rv 14:25 BP 138 / 90; Pulse 57; Resp 16; Pulse Ox 98% on R/A; rv 10:38 Body Mass Index 25.85 (77.11 kg, 172.72 cm) hb ED Course: 10:21 Patient arrived in ED. mr 10:21 None, None is Private Physician. mr 10:28 Janelle Albarran, RN is Primary Nurse. hb 10:37 [facility] snw 10:37 Ebenezer Christensen MD is Attending Physician. snw 10:37 Triage completed. hb 10:38 Arm band placed on. hb 10:40 Patient has correct armband on for positive identification. Bed in low position. Call hb light in reach. Side rails up X 1. 13:07 CT completed. Patient tolerated procedure well. Patient moved back from CT. bq 13:08 CT Abd/Pelvis - PO and IV Contrast In Process Unspecified. EDMS 14:52 No provider procedures requiring assistance completed. Inserted saline lock: 20 gauge rv in right antecubital area, using aseptic technique. IV discontinued, intact, bleeding controlled, No redness/swelling at site. Pressure dressing applied. Administered Medications: 11:19 Drug: NS 0.9% 1000 ml Route: IV; Rate: 1 bolus; Site: right antecubital; hb 14:28 Follow up: IV Status: Completed infusion; IV Intake: 1000ml rv 11:19 Drug: Phenergan 12.5 mg Route: IVP; Site: right antecubital; hb 14:28 Follow up: Response: No adverse reaction; Nausea is decreased rv 14:00 Drug: NS 0.9% 1000 ml Route: IV; Rate: 1 bolus; Site: right antecubital; rv 14:51 Follow up: IV Status: Completed infusion; IV Intake: 1000ml rv 14:25 Drug: Bisacodyl 10 mg Route: PO; rv 14:51 Follow up: Response: No adverse reaction rv 14:25 Not Given (Patient Refused): Bisacodyl Suppository 10 mg HI once rv Intake: 14:28 IV: 1000ml; Total: 1000ml. rv 14:51 IV: 1000ml; Total: 2000ml. rv Outcome: 14:32 Discharge ordered by . snw 14:52 Discharged to home ambulatory, with family. rv 14:52 Condition: good 14:52 Discharge instructions given to patient, family, Instructed on discharge instructions, follow up and referral plans. medication usage, Demonstrated understanding of instructions, follow-up care, medications, Prescriptions given X 1. 14:52 Patient left the ED. rv Signatures: Dispatcher [employer] EDMS Sylvia Jacobsen, SALES AND MERCHANDISING REPRESENTATIVE-C SALES AND MERCHANDISING REPRESENTATIVE-Csnw Mario Constance mr Barbaraelmo, Janelle Cantu, MICHAEL RN Boyd Rahman RN RN rv
--- NOTE | 2019-06-20 14:33 | EDPHYS ---
Physician Documentation [facility] Name: Miguel Gonzalez Age: 53 yrs Sex: Male : 1965 Arrival Date: 06/20/2019 Time: 10:21 Bed 6 Private MD: None, None ED Physician Ebenezer Christensen HPI: 06/20 11:44 This 53 yrs old Male presents to ER via Ambulatory with complaints of blood in snw urine. 11:44 The patient presents with urinary symptoms, hematuria. Onset: The symptoms/episode snw began/occurred suddenly. Associated signs and symptoms: The patient has no apparent associated signs or symptoms. Severity of symptoms: At their worst the symptoms were moderate. The patient has not experienced similar symptoms in the past. It is unknown whether or not the patient has recently seen a physician. pt states he has an enlarged prostate but slept all night and then had a large void this am with the end of the stream painful with large amount of blood. Historical: - Allergies: 10:38 PENICILLINS; hb - Home Meds: 10:38 None [Active]; hb - PMHx: 10:38 radiation treatment; throat cancer; hb - PSHx: 10:38 Cholecystectomy; Hernia repair; feeding tube; Left Foot; Left Arm; hb - Immunization history:: Adult Immunizations up to date. - Social history:: Smoking status: Patient/guardian denies using tobacco. - Ebola Screening: : No symptoms or risks identified at this time. ROS: 11:43 Eyes: Negative for injury, pain, redness, and discharge, ENT: Negative for injury, snw pain, and discharge, Neck: Negative for injury, pain, and swelling, Cardiovascular: Negative for chest pain, palpitations, and edema, Respiratory: Negative for shortness of breath, cough, wheezing, and pleuritic chest pain, Abdomen/GI: Negative for abdominal pain, nausea, vomiting, diarrhea, and constipation, Back: Negative for injury and pain, MS/Extremity: Negative for injury and deformity, Skin: Negative for injury, rash, and discoloration, Neuro: Negative for headache, weakness, numbness, tingling, and seizure, Psych: Negative for depression, anxiety, suicide ideation, homicidal ideation, and hallucinations. 11:43 Constitutional: Positive for malaise. 11:43 : Positive for hematuria. Exam: 11:41 Constitutional: This is a well developed, well nourished patient who is awake, alert, snw and in no acute distress. Head/Face: Normocephalic, atraumatic. Eyes: Pupils equal round and reactive to light, extra-ocular motions intact. Lids and lashes normal. Conjunctiva and sclera are non-icteric and not injected. Cornea within normal limits. Periorbital areas with no swelling, redness, or edema. ENT: Nares patent. No nasal discharge, no septal abnormalities noted. Tympanic membranes are normal and external auditory canals are clear. Oropharynx with no redness, swelling, or masses, exudates, or evidence of obstruction, uvula midline. Mucous membranes moist. Neck: Trachea midline, no thyromegaly or masses palpated, and no cervical lymphadenopathy. Supple, full range of motion without nuchal rigidity, or vertebral point tenderness. No Meningismus. Chest/axilla: Normal chest wall appearance and motion. Nontender with no deformity. No lesions are appreciated. Cardiovascular: Regular rate and rhythm with a normal S1 and S2. No gallops, murmurs, or rubs. Normal PMI, no JVD. No pulse deficits. Respiratory: Lungs have equal breath sounds bilaterally, clear to auscultation and percussion. No rales, rhonchi or wheezes noted. No increased work of breathing, no retractions or nasal flaring. Back: No spinal tenderness. No costovertebral tenderness. Full range of motion. Skin: Warm, dry with normal turgor. Normal color with no rashes, no lesions, and no evidence of cellulitis. MS/ Extremity: Pulses equal, no cyanosis. Neurovascular intact. Full, normal range of motion. Neuro: Awake and alert, GCS 15, oriented to person, place, time, and situation. Cranial nerves II-XII grossly intact. Motor strength 5/5 in all extremities. Sensory grossly intact. Cerebellar exam normal. Normal gait. Psych: Awake, alert, with orientation to person, place and time. Behavior, mood, and affect are within normal limits. 11:41 Abdomen/GI: Inspection: abdomen appears normal, Bowel sounds: normal, Palpation: mild abdominal tenderness, in the left lower quadrant. Vital Signs: 10:38 BP 119 / 84; Pulse 89; Resp 16; Temp 97.9; Pulse Ox 100% on R/A; Weight 77.11 kg; hb Height 5 ft. 8 in. (172.72 cm); Pain 10/10; 11:00 BP 105 / 81; Pulse 55; Resp 14; Pulse Ox 100% on R/A; hb 12:00 BP 91 / 66; Pulse 55; Resp 16; Pulse Ox 99% on R/A; hb 13:00 BP 94 / 74; Pulse 66; Resp 16; Pulse Ox 98% on R/A; hb 13:30 BP 94 / 74; Pulse 49; Resp 15; Pulse Ox 100% on R/A; rv 14:00 BP 118 / 86; Pulse 58; Resp 15; Pulse Ox 99% on R/A; rv 14:25 BP 138 / 90; Pulse 57; Resp 16; Pulse Ox 98% on R/A; rv 10:38 Body Mass Index 25.85 (77.11 kg, 172.72 cm) hb MDM: 10:38 Patient medically screened. snw 14:33 Data reviewed: vital signs, nurses notes. Data interpreted: Pulse oximetry: on room air snw is 98 %. Counseling: I had a detailed discussion with the patient and/or guardian regarding: the historical points, exam findings, and any diagnostic results supporting the discharge/admit diagnosis, lab results, radiology results, the need for outpatient follow up, to return to the emergency department if symptoms worsen or persist or if there are any questions or concerns that arise at home. Special discussion: Based on the patient's Hx, exam, and Dx evaluation, there is no indication for emergent surgery or inpatient Tx. It is understood by the patient/guardian that if the Sx's persist or worsen they need to return immediately for re-evaluation. Based on the history and exam findings, there is no indication for further emergent testing or inpatient evaluation. I discussed with the patient/guardian the need to see the hoist operator for further evaluation of the symptoms. I discussed with the patient/guardian the need to see the primary care provider for further evaluation of the symptoms. 06/20 10:38 Order name: Urine Culture snw 06/20 10:38 Order name: Urine Microscopic Only; Complete Time: 11:59 snw 06/20 10:57 Order name: Basic Metabolic Panel; Complete Time: 13:04 eb 06/20 10:57 Order name: CBC with Diff; Complete Time: 11:29 eb 06/20 10:57 Order name: Creatinine for Radiology; Complete Time: 11:46 eb 06/20 10:57 Order name: Hepatic Function; Complete Time: 13:04 eb 06/20 10:57 Order name: Lipase; Complete Time: 13:04 eb 06/20 10:57 Order name: CT Abd/Pelvis - PO and IV Contrast; Complete Time: 14:00 eb 06/20 11:06 Order name: Urine Dipstick--Ancillary (enter results); Complete Time: 11:59 eb 06/20 12:24 Order name: Add On-Lab snw 06/20 12:26 Order name: Thyroid Stimulating Hormone; Complete Time: 13:04 EDMS 06/20 10:38 Order name: Urine Dipstick-Ancillary (obtain specimen); Complete Time: 11:14 snw 06/20 10:57 Order name: IV Saline Lock; Complete Time: 11:14 eb 06/20 10:57 Order name: Labs collected and sent; Complete Time: 11:14 eb Administered Medications: 11:19 Drug: NS 0.9% 1000 ml Route: IV; Rate: 1 bolus; Site: right antecubital; hb 14:28 Follow up: IV Status: Completed infusion; IV Intake: 1000ml rv 11:19 Drug: Phenergan 12.5 mg Route: IVP; Site: right antecubital; hb 14:28 Follow up: Response: No adverse reaction; Nausea is decreased rv 14:00 Drug: NS 0.9% 1000 ml Route: IV; Rate: 1 bolus; Site: right antecubital; rv 14:51 Follow up: IV Status: Completed infusion; IV Intake: 1000ml rv 14:25 Drug: Bisacodyl 10 mg Route: PO; rv 14:51 Follow up: Response: No adverse reaction rv 14:25 Not Given (Patient Refused): Bisacodyl Suppository 10 mg IA once rv Disposition: 06/20/19 14:32 Discharged to Home. Impression: Volume depletion, Hematuria, unspecified, Constipation, unspecified. - Condition is Stable. - Discharge Instructions: Constipation, Adult, Dehydration, Adult, Hematuria, Adult, Rehydration, Adult. - Prescriptions for Miralax 17 gram/dose Oral - take 1 packet by ORAL route once daily dilute powder in 8 ounces of water or juice; 1 box. - Work release form, Medication Reconciliation Form, Thank You Letter, Antibiotic Education, Prescription Opioid Use, Family Work Release form. - Follow up: Private Physician; When: 2 - 3 days; Reason: Recheck today's complaints, Continuance of care, Re-evaluation by your physician. Follow up: Emergency Department; When: As needed; Reason: Worsening of condition. Signatures: Dispatcher [employer] EDMS Sylvai Jacobsen, SUMMER ASSOCIATE-C SUMMER ASSOCIATE-Csnw Janelle Albarran, MICHAEL RN Kenyatta Cherry Ronaldo, RN RN rv Corrections: (The following items were deleted from the chart) 14:52 14:32 06/20/2019 14:32 Discharged to Home. Impression: Volume depletion; Hematuria, rv unspecified; Constipation, unspecified. Condition is Stable. Discharge Instructions: Constipation, Adult, Dehydration, Adult, Hematuria, Adult, Rehydration, Adult. Prescriptions for Miralax 17 gram/dose Oral - take 1 packet by ORAL route once daily dilute powder in 8 ounces of water or juice; 1 box. and Forms are Work release form, Medication Reconciliation Form, Thank You Letter, Antibiotic Education, Prescription Opioid Use. Follow up: Private Physician; When: 2 - 3 days; Reason: Recheck today's complaints, Continuance of care, Re-evaluation by your physician. Follow up: Emergency Department; When: As needed; Reason: Worsening of condition. snw
[2019-06-20 15:36] VITALS: TEMP 97.9
[2019-06-20 15:44] VITALS: BP 138/90; O2SAT 98
== END 2019-06-20 14:52 | disposition home or self-care (01) ==
LOC: ER 10:18
DX: E86.9 Volume depletion, unspecified (principal); K59.00 Constipation, unspecified; Z88.0 Allergy status to penicillin; Z85.819 Personal history of malignant neoplasm of unspecified site of lip, oral cavity, and pharynx
CPT/HCPCS: 96361; 87088; 85025; 87086; 80048; 36415; 80076; 84443; 83690; 74177; 96374; 99284; Q9967; J2550; J7030 ×2; 81003; 81015

== ENCOUNTER 2019-08-05 10:48 | Emergency (ER) | payer OTHER ==
--- NOTE | 2019-08-05 12:04 | RAD REPORT ---
EXAM DESCRIPTION: CT - [id number] - 08/05/2019 11:55 am CLINICAL HISTORY: Trauma, head and neck injury. head and neck trauma, hit by tree limb COMPARISON: SOFT TISSUE NECK W CONTRAST dated 10/22/2015 TECHNIQUE: Axial 5 mm thick images of the head were obtained. Axial 2 mm thick images of the cervical spine were obtained with sagittal and coronal reconstruction images generated and reviewed. All CT scans are performed using dose optimization technique as appropriate and may include automated exposure control or mA/KV adjustment according to patient size. FINDINGS: CT HEAD WITHOUT CONTRAST: No acute hemorrhage, hydrocephalus or extra-axial collection is identified.No areas of brain edema or midline shift. The paranasal sinuses and mastoids are essentially clear.The calvarium is intact. CT CERVICAL SPINE WITHOUT CONTRAST: No fracture or subluxation.Mild spondylosis.No prevertebral soft tissues swelling is identified. IMPRESSION: No acute intracranial or cervical spine findings.
--- NOTE | 2019-08-05 12:14 | EDPHYS ---
Physician Documentation [facility] Name: Miguel Gonzalez Age: 53 yrs Sex: Male : 1965 Arrival Date: 08/05/2019 Time: 10:53 Bed 19 Private MD: Mansi Siddiqi ED Physician Waqar Frey HPI: 08/05 11:49 This 53 yrs old Male presents to ER via Ambulatory with complaints of Neck rn Problem. 11:49 The patient or guardian complains of an injury, pain. The symptoms are located rn diffusely. Onset: The symptoms/episode began/occurred 2 day(s) ago. Context: The problem was sustained outdoors, The neck injury/problem resulted from a direct blow. Associated signs and symptoms: Pertinent positives: headache, Pertinent negatives: bladder incontinence, bowel incontinence, nausea, numbness, tingling, vomiting, weakness. The pain does not radiate. Modifying factors: The symptoms are alleviated by remaining still, the symptoms are aggravated by movement, pressure. Severity of symptoms: At their worst the symptoms were mild, in the emergency department the symptoms are unchanged. The patient has not experienced similar symptoms in the past. Reports mowing, was walking, hit top of head on tree limb, no LOC, snapped neck back, not on blood thinners, and denies focal neurological problems. States was able to walk and didn't feel bad the first day, now 2 days out is having more pain on sides of neck and headache. No vomiting. No other injuries.. Historical: - Allergies: 10:58 PENICILLINS; hb - PMHx: 10:58 radiation treatment; throat cancer; hb - PSHx: 10:58 Cholecystectomy; Hernia repair; feeding tube; Left Foot; Left Arm; hb - Immunization history:: Adult Immunizations up to date. - Social history:: Smoking status: Patient uses tobacco products, smokes one-half pack cigarettes per day. - Ebola Screening: : No symptoms or risks identified at this time. - Family history:: not pertinent. - Hospitalizations: : No recent hospitalization is reported. ROS: 11:49 Constitutional: Negative for fever, chills, and weight loss, Eyes: Negative for injury, rn pain, redness, and discharge, ENT: Negative for injury, pain, and discharge, Neck: + neck pain Neuro: + headache Exam: 11:49 Constitutional: This is a well developed, well nourished patient who is awake, alert, rn and in no acute distress. Head/Face: Normocephalic, atraumatic. Eyes: Pupils equal round and reactive to light, extra-ocular motions intact. Lids and lashes normal. Conjunctiva and sclera are non-icteric and not injected. Cornea within normal limits. Periorbital areas with no swelling, redness, or edema. ENT: No oral trauma Neck: No midline tenderness, + pericervical muscular tenderness, no masses Respiratory: No increased work of breathing, no retractions or nasal flaring. Abdomen/GI: soft, non-tender Back: No spinal tenderness. No costovertebral tenderness. Full range of motion. MS/ Extremity: Pulses equal, no cyanosis. Neurovascular intact. Full, normal range of motion. Equal circumference. Neuro: Awake and alert, GCS 15, oriented to person, place, time, and situation. Cranial nerves II-XII grossly intact. Motor strength 5/5 in all extremities. Sensory grossly intact. Cerebellar exam normal. Vital Signs: 10:58 BP 118 / 88; Pulse 72; Resp 16; Temp 97.8; Pulse Ox 100% on R/A; Weight 83.91 kg; hb Height 6 ft. 2 in. (187.96 cm); Pain 8/10; 10:58 Body Mass Index 23.75 (83.91 kg, 187.96 cm) hb MDM: 11:30 Patient medically screened. rn 12:12 Differential diagnosis: arthritis, Cervical Raiculopathy cervical strain, fracture, rn torticollis, Whiplash Injury. Data reviewed: vital signs, nurses notes, radiologic studies, CT scan, and as a result, I will discharge patient. Counseling: I had a detailed discussion with the patient and/or guardian regarding: the historical points, exam findings, and any diagnostic results supporting the discharge/admit diagnosis, radiology results, the need for outpatient follow up, to return to the emergency department if symptoms worsen or persist or if there are any questions or concerns that arise at home. Special discussion: I discussed with the patient/guardian in detail that at this point there is no indication for admission to the hospital. It is understood, however, that if the symptoms persist or worsen the patient needs to return immediately for re-evaluation. 08/05 11:41 Order name: CT Head C Spine; Complete Time: 12:12 rn Administered Medications: No medications were administered Disposition: 08/05/19 12:13 Discharged to Home. Impression: Strain of muscle, fascia and tendon at neck level, Superficial injury of head. - Condition is Stable. - Discharge Instructions: Head Injury, Adult, Cervical Sprain, [id number]. - Prescriptions for Ultram 50 mg Oral Tablet - take 1 tablet by ORAL route every 6 hours As needed; 15 tablet. Cyclobenzaprine 10 mg Oral Tablet - take 1 tablet by ORAL route every 8 hours As needed; 20 tablet. - Medication Reconciliation Form, Thank You Letter, Antibiotic Education, Prescription Opioid Use form. - Follow up: Private Physician; When: As needed; Reason: Recheck today's complaints, Re-evaluation by your physician. - Problem is new. - Symptoms have improved. Signatures: Dispatcher [employer] EDLeandra Ratliff RN RN iw Nieto, Roman, MD MD rn Baxter, Heather, RN RN Corrections: (The following items were deleted from the chart) 12:22 12:13 08/05/2019 12:13 Discharged to Home. Impression: Strain of muscle, fascia and iw tendon at neck level; Superficial injury of head. Condition is Stable. Forms are Medication Reconciliation Form, Thank You Letter, Antibiotic Education, Prescription Opioid Use. Follow up: Private Physician; When: As needed; Reason: Recheck today's complaints, Re-evaluation by your physician. Problem is new. Symptoms have improved. rn
--- NOTE | 2019-08-05 12:14 | ER ---
Nurse's Notes [facility] [place], [place] Name: Miguel Gonzalez Age: 53 yrs Sex: Male : 1965 Arrival Date: 08/05/2019 Time: 10:53 Bed 19 Private MD: Mansi Siddiqi Diagnosis: Strain of muscle, fascia and tendon at neck level;Superficial injury of head Presentation: 08/05 10:55 Presenting complaint: Hit tree with front of head while mowing yard 3 days ago. Reports hb upon impact his neck popped and it felt good, then he got a headache, today c/o left sided neck pain and pain between shoulder blades 06/13. Transition of care: patient was not received from another setting of care. Onset of symptoms was August 02, 2019. Risk Assessment: Do you want to hurt yourself or someone else? Patient reports no desire to harm self or others. Care prior to arrival: None. 10:55 Method Of Arrival: Ambulatory hb 10:55 Acuity: NASRA 4 hb 11:15 Initial Sepsis Screen: Does the patient meet any 2 criteria? No. Patient's initial sv sepsis screen is negative. Does the patient have a suspected source of infection? No. Patient's initial sepsis screen is negative. Historical: - Allergies: 10:58 PENICILLINS; hb - PMHx: 10:58 radiation treatment; throat cancer; hb - PSHx: 10:58 Cholecystectomy; Hernia repair; feeding tube; Left Foot; Left Arm; hb - Immunization history:: Adult Immunizations up to date. - Social history:: Smoking status: Patient uses tobacco products, smokes one-half pack cigarettes per day. - Ebola Screening: : No symptoms or risks identified at this time. - Family history:: not pertinent. - Hospitalizations: : No recent hospitalization is reported. Screenin:15 Abuse screen: Denies threats or abuse. Denies injuries from another. Nutritional sv screening: No deficits noted. Tuberculosis screening: No symptoms or risk factors identified. Fall Risk None identified. Vital Signs: 10:58 BP 118 / 88; Pulse 72; Resp 16; Temp 97.8; Pulse Ox 100% on R/A; Weight 83.91 kg; hb Height 6 ft. 2 in. (187.96 cm); Pain 8/10; 10:58 Body Mass Index 23.75 (83.91 kg, 187.96 cm) hb ED Course: 10:53 Patient arrived in ED. mr 10:53 Mansi Siddiqi MD is Private Physician. mr 10:58 Triage completed. hb 10:58 Arm band placed on. hb 11:15 Patient has correct armband on for positive identification. Bed in low position. Call sv light in reach. Door closed. Head of bed elevated. 11:30 Waqar Frey MD is Attending Physician. rn 11:55 CT Head C Spine In Process Unspecified. EDMS 12:04 Ermelinda Everett, RN is Primary Nurse. sv 12:05 Awaiting radiology results. sv Administered Medications: No medications were administered Outcome: 12:13 Discharge ordered by . rn 12:22 Patient left the ED. iw Signatures: Dispatcher [employer] EDMS Ermelinda Everett, RN RN kendall MartinConstance Leandra Erwin RN MICHAEL iw Waqar Frey MD MD rn Baxter, Heather, RN RN hb
[2019-08-05 12:29] VITALS: BP 118/88; TEMP 97.8; O2SAT 100
== END 2019-08-05 12:22 | disposition home or self-care (01) ==
LOC: ER 10:48
DX: S16.1XXA Strain of muscle, fascia and tendon at neck level, initial encounter (principal); S00.90XA Unspecified superficial injury of unspecified part of head, initial encounter; W22.8XXA Striking against or struck by other objects, initial encounter; Y93.89 Activity, other specified; Y92.89 Other specified places as the place of occurrence of the external cause; Z88.0 Allergy status to penicillin; Z85.12 Personal history of malignant neoplasm of trachea; F17.210 Nicotine dependence, cigarettes, uncomplicated
CPT/HCPCS: 70450; 72125; 99283

== ENCOUNTER 2019-09-16 12:25 | Emergency (ER) | payer OTHER ==
--- OUTSIDE RECORDS SUMMARY | 2019-09-16 12:28 | XMS REPORT ---
:1965 [facility] Address [address] [place] [address] Dr. Lagos [address] [place] [id number] Care Team Providers Name Role Phone DORISGUS ANTHONY Unavailable Unavailable PROVIDER, ED TEMP Unavailable Unavailable [...] (test code=UABLD) Negative Negative Urine Source: Urine [id number] 22:00:00 Test Item Value Reference Range Comments Chemistry (test 1.3 ng/mL 0-6.6 code=CKMBM-T) Chemistry (test Less than 0.010 < 0.028 code=TROPI-T) ng/mL Reference Range 0.00 - 0.028 ng/mL Negative 0.029 - 0.29 ng/mL Indeterminate Greater or Equal to 0.3 ng/mL Strongly suggests RI [id number] 19:21:00 Test Item Value Reference Range Comments [...] 5-34 Chemistry (test code=ALT) 29 U/L 8-55 [id number] 19:21:00 Test Item Value Reference Range Comments Chemistry (test code=LIP) 27 U/L 8-78 [id number] 18:58:00 Test Item Value Reference Range Comments [...] 0.0-0.7 Hematology (test code=BASO#) 0.0 thou/uL 0.0-0.2 [id number] 14:29:00 Test Item Value Reference Range Comments [...] (test code=UABLD) Negative Negative Urine Source: Urine [id number] 13:32:00 Test Item Value Reference Range Comments [...] 5-34 Chemistry (test code=ALT) 37 U/L 8-55 [id number] 13:10:00 Test Item Value Reference Range Comments [...] 0.0-0.7 Hematology (test code=BASO#) 0.1 thou/uL 0.0-0.2 [id number] 14:04:00 Test Item Value Reference Range Comments [...] (test code=UABLD) Negative Negative Urine Source: Urine [id number] 12:39:00 Test Item Value Reference Range Comments [...] 5-34 Chemistry (test code=ALT) 18 U/L 8-55 [id number] 12:39:00 Test Item Value Reference Range Comments Chemistry (test code=LIP) 55 U/L 8-78 [id number] 12:16:00 Test Item Value Reference Range Comments [...]
[2019-09-16] MEDS ORDERED: dexAMETHasone 10 MG/ML VIAL ONE (13:01)
[2019-09-16] MEDS ORDERED: FENTANYL CITR 100 MCG/2 ML ONE (13:02)
[2019-09-16] MEDS ORDERED: ONDANSETRON 4 MG/2 ML VIAL ONE (13:02)
[2019-09-16 13:23] LABS: Absolute Lymphocytes (CBC) 0.8 K/uL (0.7-4.9); Hematocrit 41.5 % (39.6-49.0); Lymphocytes % 9.8 % (15.3-44.8); MPV 8.9 fL (7.6-11.3); RBC Red Blood Cell Count 4.52 M/uL (4.33-5.43)
[2019-09-16 13:33] LABS: Albumin 3.5 g/dL (3.4-5.0); Bilirubin Direct 0.2 mg/dL (0-0.2); Bilirubin Total 0.7 mg/dL (0.2-1.0); Potassium 3.8 mmol/L (3.5-5.1); Protein, Total 7.3 g/dL (6.4-8.2)
--- NOTE | 2019-09-16 14:04 | RAD REPORT ---
EXAM DESCRIPTION: CT - Head Brain Wo Cont - 09/16/2019 1:47 pm CLINICAL HISTORY: Headache, fever, dizziness, history of nasopharyngeal carcinoma COMPARISON: None. TECHNIQUE: Axial 5 mm thick images of the head were obtained without IV contrast. All CT scans are performed using dose optimization technique as appropriate and may include automated exposure control or mA/KV adjustment according to patient size. FINDINGS: No intracranial hemorrhage, mass, edema or shift of mid-line structures. No acute infarcti on changes seen. No abnormal extra-axial fluid collections. Ventricles are normal. No significant atr ophy or chronic ischemic change. Mastoid air cells are clear. Visualized paranasal sinuses are clear. Right deviation of the nasal sep gabriella present. No acute bony findings. IMPRESSION: Negative non-contrast CT head examination for acute or significant finding.
--- NOTE | 2019-09-16 14:21 | RAD REPORT ---
EXAM DESCRIPTION: CT - Abdomen Pelvis W Contrast - 09/16/2019 1:53 pm CLINICAL HISTORY: ABD PAIN COMPARISON: CT June 20, 2019 TECHNIQUE: Biphasic, helical CT imaging of the abdomen and pelvis was performed following 100 ml non -ionic IV contrast. No oral contrast. All CT scans are performed using dose optimization technique as appropriate and may include automated exposure control or mA/KV adjustment according to patient size. FINDINGS: No suspicious findings in the lung bases. The liver, spleen, and pancreas show no suspicious findings. Cholecystectomy clips are present. No bi liary tree dilatation. Symmetric renal function is seen with no hydronephrosis or suspicious renal mass. No pyelonephritis o r acute parenchymal process. No bladder abnormalities. No adrenal abnormalities. Large amount of fluid is present distending the stomach. There is food in the stomach as well. No gas tric wall thickening or mass. No duodenal mass or gastric outlet obstruction seen. Small bowel loops are mildly prominent. No dilatation, wall thickening or abnormal enhancement. No acute colon finding. No free air, free fluid or inflammatory stranding. No mass or bulky lymphadenopathy. Bilateral ingui nal hernia repair changes are evident. No suspicious bony findings. IMPRESSION: Prominent retained fluid in the stomach along with mildly prominent small bowel loops. F indings favor gastroenteritis.
--- NOTE | 2019-09-16 14:33 | ER ---
Nurse's Notes [facility] Name: Miguel Gonzalez Age: 53 yrs Sex: Male : 1965 Arrival Date: 09/16/2019 Time: 12:29 Bed 6 Private MD: Diagnosis: Cervicalgia;Gastroenteritis Presentation: 09/16 12:33 Presenting complaint: Headache, nausea, dizziness, and and upper abdominal pain x 1 hb week. Denies V/D/fever. Transition of care: patient was not received from another setting of care. Onset of symptoms was September 10, 2019. Initial Sepsis Screen: Does the patient meet any 2 criteria? No. Patient's initial sepsis screen is negative. Does the patient have a suspected source of infection? No. Patient's initial sepsis screen is negative. Care prior to arrival: None. 12:33 Method Of Arrival: Ambulatory hb 12:33 Acuity: NASRA 3 hb 13:00 Risk Assessment: Do you want to hurt yourself or someone else? Patient reports no sv desire to harm self or others. Historical: - Allergies: 12:35 PENICILLINS; hb - PMHx: 12:35 radiation treatment; throat cancer; hb - PSHx: 12:35 Cholecystectomy; Hernia repair; feeding tube; Left Foot; Left Arm; hb - Immunization history:: Adult Immunizations up to date. - Social history:: Smoking status: Patient uses tobacco products, smokes one-half pack cigarettes per day. - Ebola Screening: : No symptoms or risks identified at this time. Screenin:00 Abuse screen: Denies threats or abuse. Denies injuries from another. Nutritional sv screening: No deficits noted. Tuberculosis screening: No symptoms or risk factors identified. Fall Risk None identified. Assessment: 13:00 General: Appears in no apparent distress. uncomfortable, Behavior is calm, cooperative, sv appropriate for age. Pain: Complains of pain in forehead, right rastafari, left rastafari and back of neck Pain currently is 10 out of 10 on a pain scale. Neuro: Level of Consciousness is awake, alert, obeys commands, Oriented to person, place, time, situation, Moves all extremities. Full function Gait is steady, Reports dizziness, headache frontal area. Respiratory: Airway is patent Respiratory effort is even, unlabored, Respiratory pattern is regular, symmetrical. Derm: Skin is intact, Skin is pink, warm \T\ dry. 15:37 Reassessment: Patient appears in no apparent distress at this time. Patient and/or sv family updated on plan of care and expected duration. Pain level reassessed. Patient is alert, oriented x 3, equal unlabored respirations, skin warm/dry/pink. Patient states symptoms have improved. Vital Signs: 12:35 BP 153 / 90; Pulse 88; Resp 16; Temp 98.9(TE); Pulse Ox 100% on R/A; Weight 83.91 kg; hb Height 6 ft. 3 in. (190.50 cm); Pain 10/10; 14:15 BP 115 / 82; Pulse 64; Resp 16; Pulse Ox 95% ; sv 15:36 BP 120 / 88; Pulse 68; Resp 16; Pulse Ox 99% ; sv 12:35 Body Mass Index 23.12 (83.91 kg, 190.50 cm) hb ED Course: 12:29 Patient arrived in ED. mr 12:35 Triage completed. hb 12:35 Arm band placed on. hb 12:41 Lj Rodrigues PA is PHCP. jr8 12:42 Waqar Frey MD is Attending Physician. jr8 13:00 Patient has correct armband on for positive identification. Placed in gown. Bed in low sv position. Call light in reach. Side rails up X 1. Adult w/ patient. Pulse ox on. NIBP on. Door closed. Warm blanket given. Head of bed elevated. 13:02 Sharon Geller, RN is Primary Nurse. ph 13:05 Inserted saline lock: 22 gauge in right forearm, using aseptic technique. Blood sv collected. Flushed right forearm with 2 ml normal saline. 13:48 CT Head Brain wo Cont In Process Unspecified. EDMS 13:54 CT Abd/Pelvis - IV Contrast Only In Process Unspecified. EDMS 15:13 IV discontinued, intact, bleeding controlled, No redness/swelling at site. Pressure em1 dressing applied. 15:13 IV discontinued, intact, bleeding controlled, No redness/swelling at site. Pressure sv dressing applied. 15:37 No provider procedures requiring assistance completed. sv Administered Medications: 13:15 Drug: Zofran 4 mg Route: IVP; Site: right forearm; sv 14:00 Follow up: Response: No adverse reaction sv 13:17 Drug: fentaNYL (PF) 50 mcg Route: IVP; Infused Over: 2 mins; Site: right forearm; sv 14:00 Follow up: Response: No adverse reaction; RASS: Alert and Calm (0) sv 13:19 Drug: Decadron - Dexamethasone 10 mg Route: IVP; Site: right forearm; sv 14:00 Follow up: Response: No adverse reaction sv Outcome: 14:32 Discharge ordered by MD. webb 15:37 Discharged to home ambulatory, with family. sv 15:37 Condition: stable 15:37 Discharge instructions given to patient, family, Instructed on discharge instructions, follow up and referral plans. medication usage, Demonstrated understanding of instructions, follow-up care, medications, Prescriptions given X 3. 15:38 Patient left the ED. sv Signatures: Dispatcher [employer] EDMS Ermelinda Everett, RN RN kendall Martin, Constance gruber Jose, Lj Castanon PA PA jrSharon Ho RN RN ph Baxter, Heather, RN RN hb
--- NOTE | 2019-09-16 14:33 | EDPHYS ---
Physician Documentation [facility] Name: Miguel Gonzalez Age: 53 yrs Sex: Male : 1965 Arrival Date: 09/16/2019 Time: 12:29 Bed 6 Private MD: ED Physician Waqar Frey HPI: 09/16 12:55 This 53 yrs old Male presents to ER via Ambulatory with complaints of Neck jr8 Problem, Dizziness, Abdominal Pain. 12:55 Modifying factors: The symptoms are alleviated by nothing. the symptoms are aggravated jr8 by movement. Severity of symptoms: At their worst the symptoms were moderate, in the emergency department the symptoms are unchanged. The patient has experienced a previous episode. The patient has not recently seen a physician. Patient came in with two complaints. Had injury early last month. CT scans of head and neck negative at that time. Stated that he continues to have headaches and neck stiffness. Also having abdominal pain. Denies n/v/d or fevers . Historical: - Allergies: 12:35 PENICILLINS; hb - PMHx: 12:35 radiation treatment; throat cancer; hb - PSHx: 12:35 Cholecystectomy; Hernia repair; feeding tube; Left Foot; Left Arm; hb - Immunization history:: Adult Immunizations up to date. - Social history:: Smoking status: Patient uses tobacco products, smokes one-half pack cigarettes per day. - Ebola Screening: : No symptoms or risks identified at this time. ROS: 12:55 Eyes: Negative for injury, pain, redness, and discharge, ENT: Negative for injury, jr8 pain, and discharge, Cardiovascular: Negative for chest pain, palpitations, and edema, Respiratory: Negative for shortness of breath, cough, wheezing, and pleuritic chest pain, Back: Negative for injury and pain, MS/Extremity: Negative for injury and deformity, Skin: Negative for injury, rash, and discoloration. 12:55 Neck: Positive for pain with movement, pain at rest, stiffness, tenderness, Negative for bony tenderness. 12:55 Abdomen/GI: Positive for abdominal pain, Negative for nausea, vomiting, and diarrhea, constipation, abdominal cramps, abdominal distension, hematemesis, black/tarry stool, rectal pain, rectal bleeding. 12:55 Neuro: Positive for dizziness, headache, Negative for altered mental status, gait disturbance, seizure activity, speech changes, syncope, near syncope, tingling, tinnitus, tremor, visual changes, weakness. Exam: 12:55 Eyes: Pupils equal round and reactive to light, extra-ocular motions intact. Lids and jr8 lashes normal. Conjunctiva and sclera are non-icteric and not injected. Cornea within normal limits. Periorbital areas with no swelling, redness, or edema. ENT: Nares patent. No nasal discharge, no septal abnormalities noted. Tympanic membranes are normal and external auditory canals are clear. Oropharynx with no redness, swelling, or masses, exudates, or evidence of obstruction, uvula midline. Mucous membranes moist. Cardiovascular: Regular rate and rhythm with a normal S1 and S2. No gallops, murmurs, or rubs. Normal PMI, no JVD. No pulse deficits. Respiratory: Lungs have equal breath sounds bilaterally, clear to auscultation and percussion. No rales, rhonchi or wheezes noted. No increased work of breathing, no retractions or nasal flaring. Back: No spinal tenderness. No costovertebral tenderness. Full range of motion. Skin: Warm, dry with normal turgor. Normal color with no rashes, no lesions, and no evidence of cellulitis. MS/ Extremity: Pulses equal, no cyanosis. Neurovascular intact. Full, normal range of motion. Neuro: Awake and alert, GCS 15, oriented to person, place, time, and situation. Cranial nerves II-XII grossly intact. Motor strength 5/5 in all extremities. Sensory grossly intact. Cerebellar exam normal. Normal gait. 12:55 Neck: External neck: mass, is not appreciated, swelling, is not appreciated, tenderness, that is mild, of the left mid cervical area, right mid cervical area, left trapezius and right trapezius, C-spine: no acute changes, Thyroid: appears normal, no enlargement, no nodules, no tenderness, Trachea: is midline with no obvious abnormalities, ROM/movement: pain, that is mild, with any movement, Meningeal signs: are not present, Kernig's sign is negative, Brudzinski's sign is negative, nuchal rigidity, is not appreciated, Lymph nodes: no appreciated lymphadenopathy. 12:55 Abdomen/GI: Inspection: abdomen appears normal, Bowel sounds: active, all quadrants, Palpation: soft, in all quadrants, mild abdominal tenderness, in the right upper quadrant and left lower quadrant, mass, is not appreciated, rebound tenderness, is not appreciated, voluntary guarding, is not appreciated, involuntary guarding, is not appreciated, no appreciated organomegaly, Indicators: McBurney's point is not tender, Wyatt's sign is negative, Rovsing's sign is negative, Liver: tenderness, is not appreciated. Vital Signs: 12:35 BP 153 / 90; Pulse 88; Resp 16; Temp 98.9(TE); Pulse Ox 100% on R/A; Weight 83.91 kg; hb Height 6 ft. 3 in. (190.50 cm); Pain 10/10; 14:15 BP 115 / 82; Pulse 64; Resp 16; Pulse Ox 95% ; sv 15:36 BP 120 / 88; Pulse 68; Resp 16; Pulse Ox 99% ; sv 12:35 Body Mass Index 23.12 (83.91 kg, 190.50 cm) hb MDM: 12:49 Patient medically screened. jr8 14:30 Data reviewed: vital signs, nurses notes, lab test result(s), radiologic studies, CT jr8 scan. Data interpreted: Pulse oximetry: on room air is 95 %. Interpretation: normal. Counseling: I had a detailed discussion with the patient and/or guardian regarding: the historical points, exam findings, and any diagnostic results supporting the discharge/admit diagnosis, lab results, radiology results, the need for outpatient follow up, a family practitioner, a orthopedic surgeon, to return to the emergency department if symptoms worsen or persist or if there are any questions or concerns that arise at home. ED course: Reviewed previous recent imaging and compared to today along with new imaging. Mild suspected gastroenteritis but still no acute neurologic findings. Will try another couple different medicines for neck pain. Explained to him if it still hurts after that, that he would need to see spinal specialist and have MRI done. Patient understood and would f/u . 09/16 12:53 Order name: Basic Metabolic Panel; Complete Time: :8 09/16 12:53 Order name: CBC with Diff; Complete Time: 14:8 09/16 12:53 Order name: Creatinine for Radiology; Complete Time: 14:8 09/16 12:53 Order name: Hepatic Function; Complete Time: 14: jr8 09/16 12:53 Order name: Lipase; Complete Time: 14:06 09/16 12:54 Order name: CT Head Brain wo Cont; Complete Time: 14:21 09/16 12:53 Order name: IV Saline Lock; Complete Time: 13:23 09/16 12:53 Order name: Labs collected and sent; Complete Time: 13:23 09/16 12:54 Order name: CT Abd/Pelvis - IV Contrast Only; Complete Time: 14:23 Administered Medications: 13:15 Drug: Zofran 4 mg Route: IVP; Site: right forearm; sv 14:00 Follow up: Response: No adverse reaction sv 13:17 Drug: fentaNYL (PF) 50 mcg Route: IVP; Infused Over: 2 mins; Site: right forearm; sv 14:00 Follow up: Response: No adverse reaction; RASS: Alert and Calm (0) sv 13:19 Drug: Decadron - Dexamethasone 10 mg Route: IVP; Site: right forearm; sv 14:00 Follow up: Response: No adverse reaction sv Disposition: 15:46 Co-signature as Attending Physician, Waqar Frey MD. rn Disposition: 09/16/19 14:32 Discharged to Home. Impression: Cervicalgia, Gastroenteritis. - Condition is Stable. - Discharge Instructions: Musculoskeletal Pain, Viral Gastroenteritis, Adult, Neck Exercises. - Prescriptions for Zofran 4 mg Oral Tablet - take 1 tablet by ORAL route every 12 hours As needed; 20 tablet. Medrol (Raymon) 4 mg Oral Tablets, Dose Pack - take 1 tablet by ORAL route as directed - follow package instructions; 1 packet. Mobic 15 mg Oral tablet - take 1 tablet by ORAL route once daily As needed; 20 tablet. - Medication Reconciliation Form, Thank You Letter, Antibiotic Education, Prescription Opioid Use form. - Follow up: Private Physician; When: 1 week; Reason: Recheck today's complaints, Continuance of care, Re-evaluation by your physician. - Problem is new. - Symptoms have improved. Signatures: Dispatcher [employer] Ermelinda Almonte RN RN Waqar Delgado MD MD rn Roszak, Josh, PA PA jr8 Janelle Albarran RN RN Corrections: (The following items were deleted from the chart) 15:38 14:32 09/16/2019 14:32 Discharged to Home. Impression: Cervicalgia; Gastroenteritis. sv Condition is Stable. Forms are Medication Reconciliation Form, Thank You Letter, Antibiotic Education, Prescription Opioid Use. Follow up: Private Physician; When: 1 week; Reason: Recheck today's complaints, Continuance of care, Re-evaluation by your physician. Problem is new. Symptoms have improved. jr8
[2019-09-16 16:01] VITALS: TEMP 98.9
[2019-09-16 16:04] VITALS: BP 120/88; O2SAT 99
== END 2019-09-16 15:38 | disposition home or self-care (01) ==
LOC: ER 12:25
DX: K52.9 Noninfective gastroenteritis and colitis, unspecified (principal); Z85.21 Personal history of malignant neoplasm of larynx; F17.210 Nicotine dependence, cigarettes, uncomplicated
CPT/HCPCS: 85025; 80048; 36415; 80076; 83690; 70450; 74177; Q9967; J3010; J1100; J2405; 96374; 96375; 99284

== ENCOUNTER 2019-09-24 21:13 | Emergency (ER) | payer OTHER ==
--- OUTSIDE RECORDS SUMMARY | 2019-09-24 21:15 | XMS REPORT ---
:1965 [facility] Address [address] [place] [address] Dr. Lagos [address] [place] [id number] Care Team Providers Name Role Phone DORISGUS [...] (test code=UABLD) Negative Negative Urine Source: Urine [id number] 22:00:00 Test Item Value Reference Range Comments Chemistry (test 1.3 ng/mL 0-6.6 code=CKMBM-T) Chemistry (test Less than 0.010 < 0.028 code=TROPI-T) ng/mL Reference Range 0.00 - 0.028 ng/mL Negative 0.029 - 0.29 ng/mL Indeterminate Greater or Equal to 0.3 ng/mL Strongly suggests LA [id number] 19:21:00 Test Item Value Reference Range Comments [...] 5-34 Chemistry (test code=ALT) 29 U/L 8-55 [id number] 19:21:00 Test Item Value Reference Range Comments Chemistry (test code=LIP) 27 U/L 8-78 [id number] 18:58:00 Test Item Value Reference Range Comments [...] 0.0-0.7 Hematology (test code=BASO#) 0.0 thou/uL 0.0-0.2 [id number] 14:29:00 Test Item Value Reference Range Comments [...] (test code=UABLD) Negative Negative Urine Source: Urine [id number] 13:32:00 Test Item Value Reference Range Comments [...] 5-34 Chemistry (test code=ALT) 37 U/L 8-55 [id number] 13:10:00 Test Item Value Reference Range Comments [...] 0.0-0.7 Hematology (test code=BASO#) 0.1 thou/uL 0.0-0.2 [id number] 14:04:00 Test Item Value Reference Range Comments [...] (test code=UABLD) Negative Negative Urine Source: Urine [id number] 12:39:00 Test Item Value Reference Range Comments [...] 5-34 Chemistry (test code=ALT) 18 U/L 8-55 [id number] 12:39:00 Test Item Value Reference Range Comments Chemistry (test code=LIP) 55 U/L 8-78 [id number] 12:16:00 Test Item Value Reference Range Comments [...]
[2019-09-24] MEDS ORDERED: ALBUTEROL 2.5 MG/3 ML NEB SOL ONE (21:33)
[2019-09-24] MEDS ORDERED: IPRATROPIUM BROM 0.5MG/2.5ML ONE (21:33)
--- NOTE | 2019-09-24 22:49 | ER ---
Nurse's Notes [facility] Name: Miguel Gonzalez Age: 53 yrs Sex: Male : 1965 Arrival Date: 09/24/2019 Time: 21:15 Bed 20 Private MD: Diagnosis: Acute bronchitis Presentation: 09/24 21:30 Presenting complaint: Patient states: He was already seen before with same complaints wh of shortness of breath and coughing. Transition of care: patient was not received from another setting of care. Onset of symptoms was September 24, 2019. Risk Assessment: Do you want to hurt yourself or someone else? Patient reports no desire to harm self or others. Initial Sepsis Screen: Does the patient meet any 2 criteria? HR > 90 bpm. Does the patient have a suspected source of infection? Yes: Productive cough/pneumonia. Care prior to arrival: None. 21:30 Method Of Arrival: Ambulatory 21:30 Acuity: NASRA 4 Historical: - Allergies: 22:17 PENICILLINS; - PMHx: 22:17 radiation treatment; throat cancer; wh - Immunization history:: Adult Immunizations not up to date. - Social history:: Smoking status: Patient uses tobacco products. - Ebola Screening: : Patient negative for fever greater than or equal to 101.5 degrees Fahrenheit, and additional compatible Ebola Virus Disease symptoms Patient denies exposure to infectious person. Screenin:20 Abuse screen: Denies threats or abuse. Denies injuries from another. Nutritional wh screening: No deficits noted. Tuberculosis screening: No symptoms or risk factors identified. Fall Risk None identified. Assessment: 21:30 General: Appears in no apparent distress. Behavior is calm, cooperative, appropriate wh for age. Pain: Denies pain. Neuro: Level of Consciousness is awake, alert, obeys commands, Oriented to person, place, time, situation, Appropriate for age. Cardiovascular: Heart tones S1 S2. Respiratory: Airway is patent Respiratory effort is even, unlabored, Respiratory pattern is regular, symmetrical. GI: Abdomen is flat, non-distended. : No signs and/or symptoms were reported regarding the genitourinary system. EENT: No signs and/or symptoms were reported regarding the EENT system. Derm: Skin is intact, is healthy with good turgor, Skin is pink, warm \T\ dry. normal. Musculoskeletal: Circulation, motion, and sensation intact. 22:20 Reassessment: Patient appears in no apparent distress at this time. No changes from previously documented assessment. Patient and/or family updated on plan of care and expected duration. Pain level reassessed. Patient is alert, oriented x 3, equal unlabored respirations, skin warm/dry/pink. Vital Signs: 21:30 BP 137 / 89; Pulse 98; Resp 18; Temp 98.2; Pulse Ox 98% ; wh 22:20 BP 105 / 77; Pulse 89; Resp 18; Pulse Ox 96% on R/A; ED Course: 21:15 Patient arrived in ED. cl3 21:22 [facility]igna Aceved[facility]-C [facility] 21:22 Roldan Rogel MD is Attending Physician. 21:24 Christopher Duvall is Primary Nurse. 21:30 Patient has correct armband on for positive identification. Bed in low position. Call light in reach. Side rails up X 1. Pulse ox on. NIBP on. 21:30 Arm band placed on. 21:54 Chest Pa And Lat (2 Views) XRAY In Process Unspecified. EDMS 22:15 Triage completed. 23:02 No provider procedures requiring assistance completed. Patient did not have IV access during this emergency room visit. Administered Medications: 21:37 Drug: Albuterol 2.5 mg Route: Inhalation; 22:21 Follow up: Response: No adverse reaction; Wheezing diminished 21:38 Drug: AtroVENT Aerosol 0.5 mg Route: Inhalation; 22:21 Follow up: Response: No adverse reaction; Wheezing diminished Outcome: 22:48 Discharge ordered by . kb 23:03 Discharged to home ambulatory, with family. 23:03 Condition: stable 23:03 Discharge instructions given to patient, family, Instructed on discharge instructions, follow up and referral plans. medication usage, POC Acute Bronchitis Demonstrated understanding of instructions, follow-up care, medications, POC Prescriptions given X 3. 23:03 Patient left the ED. Signatures: Dispatcher [employer] [facility] Jigna Acevedo FNP-C FNP-Ckb Habalo, Winsy Mynor Herrera cl3 Corrections: (The following items were deleted from the chart) 22:15 21:30 Initial Sepsis Screen: Does the patient meet any 2 criteria? No. Patient's wh initial sepsis screen is negative. Does the patient have a suspected source of infection? Yes: Productive cough/pneumonia
--- NOTE | 2019-09-24 22:49 | EDPHYS ---
Physician Documentation [facility] Name: Miguel Gonzalez Age: 53 yrs Sex: Male : 1965 Arrival Date: 09/24/2019 Time: 21:15 Bed 20 Private MD: ED Physician Roldan Rogel HPI: 09/24 21:32 This 53 yrs old Male presents to ER via Unassigned with complaints of Chest kb Pain, Productive Cough. 21:32 The patient or guardian reports cough, that is intermittent, described as mild, with no kb sputum. Onset: The symptoms/episode began/occurred 4 day(s) ago. Severity of symptoms: At their worst the symptoms were mild, moderate, in the emergency department the symptoms are unchanged. Modifying factors: The symptoms are alleviated by nothing, the symptoms are aggravated by nothing. Associated signs and symptoms: Pertinent positives: rhinorrhea, sore throat, Pertinent negatives: chest pain, diarrhea, ear ache, fever, nausea, vomiting. The patient has not experienced similar symptoms in the past. The patient has not recently seen a physician. Pt reports cough, congestion, sore throat for 3-4 days. Historical: - Allergies: 22:17 PENICILLINS; wh - PMHx: 22:17 radiation treatment; throat cancer; wh - Immunization history:: Adult Immunizations not up to date. - Social history:: Smoking status: Patient uses tobacco products. - Ebola Screening: : Patient negative for fever greater than or equal to 101.5 degrees Fahrenheit, and additional compatible Ebola Virus Disease symptoms Patient denies exposure to infectious person. ROS: 21:31 Constitutional: Negative for fever, chills, and weight loss, Neck: Negative for injury, kb pain, and swelling, Cardiovascular: Negative for chest pain, palpitations, and edema, Abdomen/GI: Negative for abdominal pain, nausea, vomiting, diarrhea, and constipation, Back: Negative for injury and pain, MS/Extremity: Negative for injury and deformity, Skin: Negative for injury, rash, and discoloration, Neuro: Negative for headache, weakness, numbness, tingling, and seizure. 21:31 ENT: Positive for rhinorrhea, sinus congestion, sore throat. 21:31 Respiratory: Positive for cough, Negative for dyspnea on exertion, hemoptysis, orthopnea, pleurisy, shortness of breath, sputum production, wheezing. Exam: 21:31 Constitutional: This is a well developed, well nourished patient who is awake, alert, kb and in no acute distress. Head/Face: Normocephalic, atraumatic. ENT: Nares patent. No nasal discharge, no septal abnormalities noted. Tympanic membranes are normal and external auditory canals are clear. Oropharynx with no redness, swelling, or masses, exudates, or evidence of obstruction, uvula midline. Mucous membranes moist. Neck: Trachea midline, no thyromegaly or masses palpated, and no cervical lymphadenopathy. Supple, full range of motion without nuchal rigidity, or vertebral point tenderness. No Meningismus. Chest/axilla: Normal chest wall appearance and motion. Nontender with no deformity. No lesions are appreciated. Cardiovascular: Regular rate and rhythm with a normal S1 and S2. No gallops, murmurs, or rubs. Normal PMI, no JVD. No pulse deficits. Respiratory: Lungs have equal breath sounds bilaterally, clear to auscultation and percussion. No rales, rhonchi or wheezes noted. No increased work of breathing, no retractions or nasal flaring. Abdomen/GI: Soft, non-tender, with normal bowel sounds. No distension or tympany. No guarding or rebound. No evidence of tenderness throughout. Skin: Warm, dry with normal turgor. Normal color with no rashes, no lesions, and no evidence of cellulitis. MS/ Extremity: Pulses equal, no cyanosis. Neurovascular intact. Full, normal range of motion. Neuro: Awake and alert, GCS 15, oriented to person, place, time, and situation. Cranial nerves II-XII grossly intact. Motor strength 5/5 in all extremities. Sensory grossly intact. Cerebellar exam normal. Normal gait. Vital Signs: 21:30 BP 137 / 89; Pulse 98; Resp 18; Temp 98.2; Pulse Ox 98% ; wh 22:20 BP 105 / 77; Pulse 89; Resp 18; Pulse Ox 96% on R/A; wh MDM: 21:24 Patient medically screened. kb 21:31 Data reviewed: vital signs, nurses notes. Data interpreted: Pulse oximetry: on room air kb is 97 %. Interpretation: normal. 22:45 Counseling: I had a detailed discussion with the patient and/or guardian regarding: the kb historical points, exam findings, and any diagnostic results supporting the discharge/admit diagnosis, lab results, radiology results, the need for outpatient follow up, a family practitioner, to return to the emergency department if symptoms worsen or persist or if there are any questions or concerns that arise at home. 23:01 ED course: Spouse was recently diagnosed with bronchitis as well and given a z-pack. kb Educated that antibiotics are not indicated in bronchitis. Sister appeared upset that pt was not receiving antibiotics. Reports he has had green drainage and that means he needs antibiotics. Educated that that is not indicative of bacterial infection. Pt did state he feels the same way as he did another time that he came in, was told he had a virus but it turned into pneumonia a few days later and he had to stay in the ICU. Discussed x-ray with ERP and he suggests covering bronchitis with zithromax. 09/24 21:28 Order name: Flu; Complete Time: 22:02 ae4 09/24 21:28 Order name: Strep; Complete Time: 22:02 ae4 09/24 21:28 Order name: Chest Pa And Lat (2 Views) XRAY 09/24 22:03 Order name: Throat Culture EDMS Administered Medications: 21:37 Drug: Albuterol 2.5 mg Route: Inhalation; 22:21 Follow up: Response: No adverse reaction; Wheezing diminished 21:38 Drug: AtroVENT Aerosol 0.5 mg Route: Inhalation; 22:21 Follow up: Response: No adverse reaction; Wheezing diminished Disposition: 09/25 12:10 Co-signature as Attending Physician, Roldan Rogel MD I agree with the assessment and tayo plan of care. Disposition: 09/24/19 22:48 Discharged to Home. Impression: Acute bronchitis. - Condition is Stable. - Discharge Instructions: Acute Bronchitis, [id number]. - Prescriptions for Bromfed DM 2- 30-10 mg/5 mL Oral syrup - take 10 milliliter by ORAL route every 4 hours; 100 milliliter. Zithromax Z- Raymon 250 mg Oral Tablet - take 1 tablet by ORAL route as directed for 5 days Day 1 - take two (2) tablets one time. Day 2, 3, 4 , 5 take one (1) tablet once daily.; 6 tablet. Albuterol Sulfate 90 mcg/actuation - inhale 1-2 puff by INHALATION route every 4-6 hours; 1 Inhaler. - Medication Reconciliation Form, Thank You Letter, Antibiotic Education, Prescription Opioid Use form. - Follow up: Emergency Department; When: As needed; Reason: Worsening of condition. Follow up: Private Physician; When: 2 - 3 days; Reason: Recheck today's complaints, Continuance of care, Re-evaluation by your physician. Signatures: Dispatcher [employer] [facility] Jigna Acevedo, AYAZ-Julissa JACOME-Roldan Ontiveros MD MD cha Habalo, Winsy Corrections: (The following items were deleted from the chart) 09/24 21:29 21:28 Influenza Screen (A \T\ B)+BA.LAB.BRZ ordered. [facility] 21:28 Group A Streptococcus Rapid Sc+BA.LAB.BRZ ordered. [facility] 23:03 22:48 09/24/2019 22:48 Discharged to Home. Impression: Acute bronchitis. Condition is wh Stable. Forms are Medication Reconciliation Form, Thank You Letter, Antibiotic Education, Prescription Opioid Use. Follow up: Emergency Department; When: As needed; Reason: Worsening of condition. Follow up: Private Physician; When: 2 - 3 days; Reason: Recheck today's complaints, Continuance of care, Re-evaluation by your physician. kb
[2019-09-24 23:31] VITALS: TEMP 98.2
[2019-09-24 23:32] VITALS: BP 105/77; O2SAT 96
--- NOTE | 2019-09-25 08:45 | RAD REPORT ---
EXAM DESCRIPTION: Shahla Corona And Chase (2 Views)09/24/2019 9:54 pm CLINICAL HISTORY: Cough COMPARISON: 2017 FINDINGS: Mild interstitial opacities appear chronic The lungs appear clear of acute infiltrate. The heart is normal size IMPRESSION: No acute abnormalities displayed
== END 2019-09-24 23:03 | disposition home or self-care (01) ==
LOC: ER 21:13
DX: J20.9 Acute bronchitis, unspecified (principal); Z72.0 Tobacco use; Z88.0 Allergy status to penicillin; Z85.12 Personal history of malignant neoplasm of trachea
CPT/HCPCS: 71046; 87070; 87081; 87804; 99284

== ENCOUNTER 2020-04-02 19:26 | Emergency (ER) | payer OTHER ==
--- OUTSIDE RECORDS SUMMARY | 2020-04-02 19:30 | XMS REPORT ---
:1965 Author Organization eClinicalWorks Care Team Providers Name Role Phone Valeria Cuellar Provider Role Unavailable Allergies, Adverse Reactions, Alerts Substance Reaction Event Type PCN Info Not Available Drug Allergy Problems Problem Type Condition Code Onset Dates Condition Statu s Problem Chronic congestion of paranasal J32.9 Active sinus Problem Non-seasonal allergic rhinitis due J30.1 Active to pollen Problem History of thyroid disease Z86.39 A ctive Problem Penile lesion N48.9 Active Problem Acquired hypothyroidism E03.9 Acti ve Problem Kidney stone N20.0 Active Problem Osteoarthritis of spine with M47.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, cervical region Problem Chronic ethmoidal sinusitis J32.2 Active Problem Other chronic pain G89.29 Active Problem Anxiety about health F41.8 Active Assessment Kidney stone N20.0 Active Assessment Hematuria R31.9 Active Assessment Penile lesion N48.9 Active Assessment Encounter for screening for Z12.5 Active malignant neoplasm of prostate 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 Problem Polyp of duodenum K31.7 Active Problem Esophagitis K20.9 Active Problem Pylorus erosion, 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 Problem 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 Medications Medication Code Code Instructions Start End Status Dosage System Date Date Ipratropium ND 84569038227 0.06 % Nasally Active 2 sprays [place] every 8 hrs in each nostril Citalopram ND 91335967095 20 MG Orally Active 1 ta blet Hydrobromide Once a day Tamsulosin HCl ND 05287457361 0.4 MG Orally FebruaryAug 16, Active 1 capsule Once a day 2019 Magnesium Oxide ND 44377747011 400 MG Orally February Active 1 capsule -Mg Supplement twice a day 2019 15, as n eeded 2019 Levothyroxine ND 74720220655 50 MCG Orally February Active 1 tablet Sodium Once a day 2019 in the morning on an empty stomach Omeprazole ND 21309756044 40 MG Orally March 13, Active 1 ca psule twice a day 2018 Tizanidine HCl [facility] 36886720897 2 MG Orally at FebruaryMarch 19, Active 1 capsule bedtime 2019 as needed Results No Known Results Summary Purpose eClinicalWorks Submission
--- OUTSIDE RECORDS SUMMARY | 2020-04-02 19:30 | XMS REPORT ---
:1965 Author Organization [facility] t Address [address] [place] [address] Care Team Providers Name Role Phone Froilan Wynn DO Attending Clinician GUS GEORGE Attending Clinician Unavailable PROVIDER, ED TEMP Attending Clinician Unavailable Herb Attending Clinician Unavailable Problems Condition Condition Condition Status Onset Resolution Last Treating Co mments Source Name Details Category Date Date Treatment Clinician Date Chronic Chronic Problem Active [facility] congestion congestion Jenny kes - of of Memoria paranasal paranasal l sinus sinus Outpati ent Clinics Non-season Non-season Problem [facility] allergic allergic [facility] a rhinitis rhinitis l due to due to Outpati pollen pollen ent Clinics History of History of Problem Active [facility] thyroid thyroid [facility] - disease disease [facility] Penile Penile Problem Active [facility] lesion lesion [facility] Acquired Acquired Problem [facility] hypothyroi hypothyroi Jenny kes - dism dism [facility] Kidney Kidney Problem Active [facility] stone stone [facility]ics Osteoarthr Osteoarthr Problem Active [facility] itis of itis of [facility] - spine with spine with Me moria radiculopa radiculopa l thy, thy, Outpati cervical cervical ent region region Clinics Chronic Chronic Problem Active [facility] ethmoidal ethmoidal Luke s - sinusitis sinusitis [facility]ai [facility] ent Clinics Other Other Problem Active [facility] chronic chronic [facility] pain pain [facility] Anxiety Anxiety Problem Active [facility] History of History of Problem Active [facility] nasopharyn nasopharyn Jenny kes - geal geal [facility] cancer cancer l [facility] Polyp of Polyp of Problem Active [facility] duodenum duodenum Formerly named [facility] Esophagiti Esophagiti Problem Active [facility] s s [facility] Pylorus Pylorus Problem Active [facility] erosion, erosion, [facility] - unspecifie unspecifie Me moria d d l chronicity chronicity Ou [facility] ent Clinics Raphael's Raphael's Problem Active [facility] esophagus esophagus Luke s - with low with low Memori a grade grade l dysplasia dysplasia Outp at ent Clinics Allergies, Adverse Reactions, Alerts Allergy Allergy Status Severity Reaction(s) Onset Inactive Treating Comm ents Source Name Type Date Date Clinician PCN Adverse Active Info Not [facility] Reaction Available Formerly named [facility] Medications Ordered Filled Start Stop Current Ordering Indication Dosage Frequency Signature Comments Components Source Medication Medication Date Date Medication? Clinician (SIG) Name Name Levothyroxi Levothyroxi Yes Valeria [address] [facility] ne Sodium ne Sodium 4-16 [place] [facility] the [facility] - 00:00: morning on Memoria 00 an empty l stomach [facility] Tamsulosin Tamsulosin 2020- Yes Valeria [address] [facility] HCl HCl 4-16 10-13 [place] [facility] - 00:00: 00:00 Memoria 00 :00 [facility] Magnesium Magnesium 2020- Yes Valeria [address] [facility] Oxide -Mg Oxide -Mg 4-16 07-15 [place] as needed [facility] - Supplement Supplement 00:00: 00:00 Memoria 00 :00 [facility] Tizanidine Tizanidine 2020- Yes Valeria [address] [facility] HCl HCl 4-16 05-16 [place] as needed [facility] - 00:00: 00:00 Memoria 00 :00 [facility] Omeprazole Omeprazole Yes Valeria [address] [facility] 5-10 [place] [facility] - 00:00: Memoria 00 [facility] Ipratropium Ipratropium Yes Valeria [address] [facility] [place]itt Dewitt [place] in each Jenny kes - nostril [facility] Citalopram Citalopram Yes Valeria [address] [facility] Hydrobromid Hydrobromid [place] [facility] - e e Memoria l [facility] ent Clinics Procedures This patient has no known procedures. Encounters Start End Encounter Admission Attending Care Care Encounter Source Date/Time Date/Time Type Type Clinicians Facility Department ID 2020-03-02 2020-03-02 Outpatient James Viera [id number] [facility] [address] 12:39:00 12:39:00 t Specialty/U Jenny kes - Specialty rology Memori a /Urology Clinic l [facility] 2020-02-29 2020-02-29 Outpatient James Viera [id number] [address] 14:00:00 14:00:00 t Specialty/U Jenny kes - Specialty rology Memori a /Urology Clinic [facility] 2019-06-01 2019-06-01 Emergency DONNY Wynn [id number] 08:49:26 10:20:00 Froilan Doran [id number] [place] [id number] [place] [id number] Results Test Description Test Time Test Comments Results Result Comments Source Urinalysis 2017-11-23 00:23:00 Test Item Value Reference Range Interpretation Comme nts Urinalysis (test code = UACLR) YELLOW Yellow Urinalysis (test code = UACLY) CLEAR Clear Urinalysis (test code = SPGR) 1.011 1.002-1.036 N Urinalysis (test code = BRINA) 6.0 5.0-9.0 N Urinalysis (test code = UALEU) Negative Negative Urinalysis (test code = UANIT) Negative Negative Urinalysis (test code = PROUADIP) Negative mg/dL Neg-Trace Urinalysis (test code = GLUCU) Negative mg/dL Negative Urinalysis (test code = KETU) Negative mg/dL Negative Urinalysis (test code = UAUROB) 0.2 mg/dL 0.2-1.0 Urinalysis (test code = UABIL) Negative Negative Urinalysis (test code = UABLD) Negative Negative Urine Source: Urine [id number] 22:00:00 Test Item Value Reference Range Interpretation Comments Chemistry (test 1.3 ng/mL 0-6.6 N code = CKMBM-T) Chemistry (test Less than < 0.028 code = TROPI-T) 0.010 ng/mL Reference Ra nge 0. 00 - 0.028 ng/mL Negative 0.029 - 0.29 n g/mL Indeterminate Greater or Equa l to 0.3 ng/mL [place] suggests [place] [id number] 19:21:00 Test Item Value Reference Range Interpretation Comments Chemistry (test code 138 mmol/L 136-145 N = NA-T) Chemistry (test code 4.7 mmol/L 3.5-5.1 N = K-T) Chemistry (test code 106 mmol/L 98-107 N = CL) Chemistry (test code 26 mmol/L 22-29 N = CO2) Chemistry (test code 11 mmol/L 10-20 N = ANGP) Chemistry (test code 19 mg/dL 8.4-25.7 N = BUN) Chemistry (test code 1.06 mg/dL 0.6-1.3 N = CREATT) Chemistry (test code 73 Referen ce Range for = EGFRMDRD) Estimated GFR: Great er than 90 mL/min/1.73 m2NOTE:The MDRD equation has no t been validated for u se with theelderly (ove r 70 years of age), women, patientswith se rious comorbid condit ion or persons with ex tremes ofbody size, mu scle mass, or nutrit ional status. Chemistry (test code 101 mg/dL 70-105 N = GLU-T) Chemistry (test code 9.5 mg/dL 7.8-10.44 N = CA) Chemistry (test code 0.6 mg/dL 0.2-1.2 N = TBILI) Chemistry (test code 7.1 g/dL 6.0-8.3 N = TP) Chemistry (test code 4.1 g/dL 3.5-5.0 N = ALB) Chemistry (test code 3.0 g/dL 2.4-3.5 N = GLOB) Chemistry (test code 1.4 g/dL 1.2-2.2 N = AG) Chemistry (test code 77 U/L 40-150 N = ALP) Chemistry (test code 24 U/L 5-34 N = AST) Chemistry (test code 29 U/L 8-55 N = ALT) [id number] 19:21:00 Test Item Value Reference Range Interpretation Comments Chemistry (test code = LIP) 27 U/L 8-78 N [id number] 18:58:00 Test Item Value Reference Range Interpretation Comments Hematology (test code = WBCT) 5.9 thou/uL 4.8-10.8 N Hematology (test code = RBCT) 4.48 mill/uL 4.70-6.10 L Hematology (test code = HGBT) 14.5 g/dL 14.0-18.0 N Hematology (test code = HCTT) 42.9 % 42.0-52.0 N Hematology (test code = MCV) 95.9 fl 80.0-94.0 H Hematology (test code = MCH) 32.3 pg 27.0-31.0 H Hematology (test code = MCHC) 33.7 g/dL 32.0-36.0 N Hematology (test code = RDW) 11.3 % 11.5-14.5 L Hematology (test code = PLTT) 208 thou/uL 130-400 N Hematology (test code = MPV) 7.4 fL 7.4-10.4 N Hematology (test code = %NEUT) 69.9 % 42.0-75.0 N Hematology (test code = %LYMPH) 17.0 % 21.0-51.0 L Hematology (test code = %MONO) 10.2 % 0.0-10.0 H Hematology (test code = %EOS) 2.8 % 0.0-10.0 N Hematology (test code = %BASO) 0.1 % 0.0-1.0 N Hematology (test code = NEUT#) 4.2 thou/uL 1.40-6.50 N Hematology (test code = LYMPH#) 1.0 thou/uL 1.20-3.40 L Hematology (test code = MONO#) 0.6 thou/uL 0.11-0.59 H Hematology (test code = EOS#) 0.2 thou/uL 0.0-0.7 N Hematology (test code = BASO#) 0.0 thou/uL 0.0-0.2 N [id number] 14:29:00 Test Item Value Reference Range Interpretation Comments Urinalysis (test code = UACLR) YELLOW Yellow Urinalysis (test code = UACLY) CLEAR Clear Urinalysis (test code = SPGR) 1.026 1.002-1.036 N Urinalysis (test code = BRINA) 6.0 5.0-9.0 N Urinalysis (test code = UALEU) Negative Negative Urinalysis (test code = UANIT) Negative Negative Urinalysis (test code = Negative mg/dL Neg-Trace PROUADIP) Urinalysis (test code = GLUCU) Negative mg/dL Negative Urinalysis (test code = KETU) Negative mg/dL Negative Urinalysis (test code = 0.2 mg/dL 0.2-1.0 UAUROB) Urinalysis (test code = UABIL) Negative Negative Urinalysis (test code = UABLD) Negative Negative Urine Source: Urine [id number] 13:32:00 Test Item Value Reference Range Interpretation Comments Chemistry (test code 138 mmol/L 136-145 N = NA-T) Chemistry (test code 4.2 mmol/L 3.5-5.1 N = K-T) Chemistry (test code 104 mmol/L 98-107 N = CL) Chemistry (test code 28 mmol/L 22-29 N = CO2) Chemistry (test code 10 mmol/L 10-20 N = ANGP) Chemistry (test code 16 mg/dL 8.4-25.7 N = BUN) Chemistry (test code 0.93 mg/dL 0.6-1.3 N = CREATT) Chemistry (test code 86 Referen ce Range for = EGFRMDRD) Estimated GFR: Great er than 90 mL/min/1.73 m2NOTE:The MDRD equation has no t been validated for u se with theelderly (ove r 70 years of age), women, patientswith se rious comorbid condit ion or persons with ex tremes ofbody size, mu scle mass, or nutrit ional status. Chemistry (test code 144 mg/dL 70-105 H = GLU-T) Chemistry (test code 9.7 mg/dL 7.8-10.44 N = CA) Chemistry (test code 0.8 mg/dL 0.2-1.2 N = TBILI) Chemistry (test code 7.4 g/dL 6.0-8.3 N = TP) Chemistry (test code 4.0 g/dL 3.5-5.0 N = ALB) Chemistry (test code 3.4 g/dL 2.4-3.5 N = GLOB) Chemistry (test code 1.2 g/dL 1.2-2.2 N = AG) Chemistry (test code 91 U/L 40-150 N = ALP) Chemistry (test code 22 U/L 5-34 N = AST) Chemistry (test code 37 U/L 8-55 N = ALT) [id number] 13:10:00 Test Item Value Reference Range Interpretation Comments Hematology (test code = WBCT) 7.1 thou/uL 4.8-10.8 N Hematology (test code = RBCT) 4.78 mill/uL 4.70-6.10 N Hematology (test code = HGBT) 15.6 g/dL 14.0-18.0 N Hematology (test code = HCTT) 46.2 % 42.0-52.0 N Hematology (test code = MCV) 96.6 fl 80.0-94.0 H Hematology (test code = MCH) 32.6 pg 27.0-31.0 H Hematology (test code = MCHC) 33.7 g/dL 32.0-36.0 N Hematology (test code = RDW) 11.6 % 11.5-14.5 N Hematology (test code = PLTT) 210 thou/uL 130-400 N Hematology (test code = MPV) 7.2 fL 7.4-10.4 L Hematology (test code = %NEUT) 86.3 % 42.0-75.0 H Hematology (test code = %LYMPH) 6.3 % 21.0-51.0 L Hematology (test code = %MONO) 4.8 % 0.0-10.0 N Hematology (test code = %EOS) 1.9 % 0.0-10.0 N Hematology (test code = %BASO) 0.7 % 0.0-1.0 N Hematology (test code = NEUT#) 6.2 thou/uL 1.40-6.50 N Hematology (test code = LYMPH#) 0.5 thou/uL 1.20-3.40 L Hematology (test code = MONO#) 0.3 thou/uL 0.11-0.59 N Hematology (test code = EOS#) 0.1 thou/uL 0.0-0.7 N Hematology (test code = BASO#) 0.1 thou/uL 0.0-0.2 N [id number] 14:04:00 Test Item Value Reference Range Interpretation Comments Urinalysis (test code = UACLR) YELLOW Yellow Urinalysis (test code = UACLY) CLEAR Clear Urinalysis (test code = SPGR) 1.040 1.002-1.036 H Urinalysis (test code = BRINA) 6.0 5.0-9.0 N Urinalysis (test code = UALEU) Negative Negative Urinalysis (test code = UANIT) Negative Negative Urinalysis (test code = Negative mg/dL Neg-Trace PROUADIP) Urinalysis (test code = GLUCU) Negative mg/dL Negative Urinalysis (test code = KETU) Negative mg/dL Negative Urinalysis (test code = 0.2 mg/dL 0.2-1.0 UAUROB) Urinalysis (test code = UABIL) Negative Negative Urinalysis (test code = UABLD) Negative Negative Urine Source: Urine [id number] 12:39:00 Test Item Value Reference Range Interpretation Comments Chemistry (test code 141 mmol/L 136-145 N = NA-T) Chemistry (test code 3.9 mmol/L 3.5-5.1 N = K-T) Chemistry (test code 108 mmol/L 98-107 H = CL) Chemistry (test code 26 mmol/L 22-29 N = CO2) Chemistry (test code 11 mmol/L 10-20 N = ANGP) Chemistry (test code 13 mg/dL 8.4-25.7 N = BUN) Chemistry (test code 0.93 mg/dL 0.6-1.3 N = CREATT) Chemistry (test code 86 Referen ce Range for = EGFRMDRD) Estimated GFR: Great er than 90 mL/min/1.73 m2NOTE:The MDRD equation has no t been validated for u se with theelderly (ove r 70 years of age), women, patientswith se rious comorbid condit ion or persons with ex tremes ofbody size, mu scle mass, or nutrit ional status. Chemistry (test code 111 mg/dL 70-105 H = GLU-T) Chemistry (test code 9.0 mg/dL 7.8-10.44 N = CA) Chemistry (test code 0.7 mg/dL 0.2-1.2 N = TBILI) Chemistry (test code 6.8 g/dL 6.0-8.3 N = TP) Chemistry (test code 3.8 g/dL 3.5-5.0 N = ALB) Chemistry (test code 3.0 g/dL 2.4-3.5 N = GLOB) Chemistry (test code 1.3 g/dL 1.2-2.2 N = AG) Chemistry (test code 73 U/L 40-150 N = ALP) Chemistry (test code 17 U/L 5-34 N = AST) Chemistry (test code 18 U/L 8-55 N = ALT) [id number] 12:39:00 Test Item Value Reference Range Interpretation Comments Chemistry (test code = LIP) 55 U/L 8-78 N [id number] 12:16:00 Test Item Value Reference Range Interpretation Comments Hematology (test code = WBCT) 4.1 thou/uL 4.8-10.8 L Hematology (test code = RBCT) 4.42 mill/uL 4.70-6.10 L Hematology (test code = HGBT) 14.1 g/dL 14.0-18.0 N Hematology (test code = HCTT) 42.3 % 42.0-52.0 N Hematology (test code = MCV) 95.8 fl 80.0-94.0 H Hematology (test code = MCH) 31.9 pg 27.0-31.0 H Hematology (test code = MCHC) 33.3 g/dL 32.0-36.0 N Hematology (test code = RDW) 11.3 % 11.5-14.5 L Hematology (test code = PLTT) 202 thou/uL 130-400 N Hematology (test code = MPV) 7.5 fL 7.4-10.4 N Hematology (test code = %NEUT) 77.2 % 42.0-75.0 H Hematology (test code = %LYMPH) 14.3 % 21.0-51.0 L Hematology (test code = %MONO) 6.1 % 0.0-10.0 N Hematology (test code = %EOS) 2.0 % 0.0-10.0 N Hematology (test code = %BASO) 0.4 % 0.0-1.0 N Hematology (test code = NEUT#) 3.1 thou/uL 1.40-6.50 N Hematology (test code = LYMPH#) 0.6 thou/uL 1.20-3.40 L Hematology (test code = MONO#) 0.3 thou/uL 0.11-0.59 N Hematology (test code = EOS#) 0.1 thou/uL 0.0-0.7 N Hematology (test code = BASO#) 0.0 thou/uL 0.0-0.2 N
--- OUTSIDE RECORDS SUMMARY | 2020-04-02 19:30 | XMS REPORT ---
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
[2020-04-02 20:07] LABS: Absolute Lymphocytes (CBC) 0.9 K/uL (0.7-4.9); Basophils % 0.2 % (0-1.3); Hematocrit 40.9 % (39.6-49.0); Lymphocytes % 15.6 % (15.3-44.8); MPV 8.9 fL (7.6-11.3); RBC Red Blood Cell Count 4.42 M/uL (4.33-5.43)
[2020-04-02 20:10] LABS: Protime INR 0.9
[2020-04-02 20:35] LABS: ALT/SGPT 60 U/L (12-78); AST/SGOT 24 U/L (15-37); Albumin 3.3 g/dL (3.4-5.0); Alkaline Phosphatase 92 U/L (45-117); BUN Blood Urea Nitrogen 16 mg/dL (7-18); Bicarbonate 26 mmol/L (21-32); Bilirubin Direct 0.1 mg/dL (0-0.2); Bilirubin Total 0.5 mg/dL (0.2-1.0); Glucose Level 141 mg/dL (74-106); Magnesium 2.1 mg/dL (1.8-2.4); NT PRO-BNP 94 pg/mL (<125); Potassium 3.6 mmol/L (3.5-5.1); Protein, Total 7.1 g/dL (6.4-8.2); Sodium Level 139 mmol/L (136-145); Troponin (Emerg Dept Use Only) < 0.02 ng/mL (0.0-0.045)
--- NOTE | 2020-04-02 20:37 | RAD REPORT ---
EXAM DESCRIPTION: RAD - Chest Single View - 04/02/2020 8:24 pm CLINICAL HISTORY: CHEST PAIN Chest pain. COMPARISON: Chest Pa And Lat (2 Views) dated 09/24/2019; Chest Pa And Lat (2 Views) dated 11/27/2016; Chest Single View dated 07/12/2016; Chest Single View dated 03/17/2016 FINDINGS: Portable technique limits examination quality. The lungs are grossly clear. The heart is normal in size. No displaced fractures. IMPRESSION: No acute intrathoracic process suspected.
[2020-04-02] MEDS ORDERED: ASPIRIN 81 MG CHEWABLE TABLET ONE (21:40)
[2020-04-03 00:50] VITALS: BP 141/85; TEMP 97.8; O2SAT 99
--- NOTE | 2020-04-03 14:06 | EKG ---
Test Date: 2020-04-02 Test Time: 19:42:08 Camp Nurse: JOSIE MEASUREMENT RESULTS: Intervals: Rate: 78 ND: 176 QRSD: 88 QT: 380 QTc: 433 [place]: P: 42 ND: 176 QRS: -17 T: 47 INTERPRETIVE STATEMENTS: Normal sinus rhythm Normal ECG Compared to ECG 10/10/2018 08:08:22 Sinus bradycardia no longer present Electronically Signed On 04-03-20 14:05:56 CDT by Carlos Jama
--- NOTE | 2020-04-03 14:06 | EKG ---
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
--- NOTE | 2020-04-04 18:24 | ER ---
Nurse's Notes [facility] Name: Miguel Gonzalez Age: 54 yrs Sex: Male : 1965 Arrival Date: 04/02/2020 Time: 19:30 Bed 4 Private MD: Diagnosis: Chest pain, unspecified Presentation: 04/02 19:37 Chief complaint: Patient states: Chest tightness that began earlier today worsening sg about an hour ago, reports having nausea, tightness described in the center of the chest, causes shortness of breath. Coronavirus screen: Proceed with normal triage. Ebola Screen: Patient negative for fever greater than or equal to 101.5 degrees Fahrenheit, and additional compatible Ebola Virus Disease symptoms Patient denies exposure to infectious person. Patient denies travel to an Ebola-affected area in the 21 days before illness onset. No symptoms or risks identified at this time. Initial Sepsis Screen: Does the patient meet any 2 criteria? No. Patient's initial sepsis screen is negative. Does the patient have a suspected source of infection? No. Patient's initial sepsis screen is negative. Risk Assessment: Do you want to hurt yourself or someone else? Patient reports no desire to harm self or others. Onset of symptoms was April 02, 2020. Transition of care: patient was not received from another setting of care. 19:37 Method Of Arrival: Ambulatory 19:37 Acuity: NASRA 3 sg Triage Assessment: 19:39 General: Appears in no apparent distress. uncomfortable, well groomed, well developed, sg well nourished, Behavior is cooperative, appropriate for age, anxious. Pain: Complains of pain in mid-sternal area Quality of pain is described as squeezing. Neuro: Level of Consciousness is awake, alert, obeys commands, Speech is normal, Facial symmetry appears normal. Cardiovascular: Capillary refill is brisk in bilateral fingers Patient's skin is warm and dry. Chest pain is described as mild, quality is squeezing. Respiratory: Airway is patent Respiratory effort is even, unlabored, Respiratory pattern is regular, symmetrical. GI: No signs and/or symptoms were reported involving the gastrointestinal system. Derm: Skin is pink, warm \T\ dry. Musculoskeletal: Circulation, motion, and sensation intact. Range of motion: intact in all extremities. Historical: - Allergies: 19:39 PENICILLINS; sg - PMHx: 19:39 radiation treatment; throat cancer; sg - Immunization history:: Adult Immunizations up to date. - Social history:: Smoking status: Patient denies any tobacco usage or history of. Screenin:31 Abuse screen: Denies threats or abuse. Denies injuries from another. Nutritional ls4 screening: No deficits noted. Tuberculosis screening: No symptoms or risk factors identified. Fall Risk None identified. Assessment: 19:35 Pain: Complains of pain in chest and mid-sternal area STATES IT WOULD GO DOWN BOTH ARMS ls4 AND HIS HANDS FELT TINGLY Pain currently is 0 out of 10 on a pain scale. at worst was 8 out of 10 on a pain scale. Quality of pain is described as pressure, shooting, squeezing, Pain began suddenly, 2 hours ago. Is intermittent, episodic, lasting a few minutes. Neuro: No deficits noted. Cardiovascular: Reports chest pain, palpitations, Denies diaphoresis, fatigue, lightheadedness, nausea, shortness of breath, syncope, vomiting, Capillary refill < 3 seconds JVD is absent Patient's skin is warm and dry. Rhythm is sinus rhythm Parent/caregiver reports patient has had chest pain, palpitations. Respiratory: Airway is patent Respiratory effort is even, unlabored, Respiratory pattern is regular. GI: No deficits noted. No signs and/or symptoms were reported involving the gastrointestinal system. : No deficits noted. No signs and/or symptoms were reported regarding the genitourinary system. Derm: Skin is intact, is healthy with good turgor, Skin is pink, warm \T\ dry. 19:35 General: Appears in no apparent distress. comfortable, Behavior is calm, cooperative, rr5 appropriate for age. 20:40 Reassessment: Patient appears in no apparent distress at this time. Patient is alert, rr5 oriented x 3, equal unlabored respirations, skin warm/dry/pink. awaiting for review. no complaints made. 21:44 Reassessment: Patient appears in no apparent distress at this time. Patient is alert, ls4 oriented x 3, equal unlabored respirations, skin warm/dry/pink. Patient denies pain at this time. 23:16 Reassessment: Patient appears in no apparent distress at this time. Patient is alert, rr5 oriented x 3, equal unlabored respirations, skin warm/dry/pink. repeat troponin done Patient denies pain at this time. 23:49 Reassessment: Patient appears in no apparent distress at this time. Patient is alert, rr5 oriented x 3, equal unlabored respirations, skin warm/dry/pink. discharge instruction given and explained without complaints made, verbalized understanding. Vital Signs: 20:13 BP 133 / 95; Pulse 77; Resp 20; Temp 97.9(O); Pulse Ox 99% on R/A; Weight 72.57 kg; ls4 Height 6 ft. 1 in. (185.42 cm); Pain 0/10; 20:57 BP 133 / 95; Pulse 70; Resp 18; Pulse Ox 99% ; rr5 22:00 BP 144 / 91; Pulse 66; Resp 16; Pulse Ox 99% on R/A; Pain 0/10; ls4 23:00 BP 136 / 90; Pulse 65; Resp 18; Pulse Ox 98% on R/A; Pain 0/10; rr5 23:50 BP 141 / 85; Pulse 60; Resp 17; Temp 97.8; Pulse Ox 99% ; rr5 20:13 Body Mass Index 21.11 (72.57 kg, 185.42 cm) ls4 Vitals: 20:13 Cardiac Rhythm Assessment Regular Sinus rhythm. ls4 ED Course: 19:30 Patient arrived in ED. bp1 19:36 Roldan Taylor PA is PHCP. cp 19:36 Anselmo Cárdenas MD is Attending Physician. cp 19:38 Triage completed. sg 19:38 Arm band placed on. sg 19:38 Patient has correct armband on for positive identification. Bed in low position. Call ls4 light in reach. Side rails up X 1. night monitor on. Pulse ox on. NIBP on. 19:38 Verbal reassurance given. Diet: Patient is NPO. ls4 19:38 No provider procedures requiring assistance completed. Inserted saline lock: 18 gauge ls4 in right antecubital area, using aseptic technique. Patient maintains SpO2 saturation greater than 95% on room air. 19:44 Nilton Peterson, MICHAEL is Primary Nurse. rr5 19:55 EKG completed in triage. Results shown to MD. ls4 19:55 Troponin (emerg Dept Use Only) Sent. ls4 20:24 XRAY Chest (1 view) In Process Unspecified. EDMS 23:16 Repeat lab(s) drawn. by me, sent to lab. EKG done, by ED staff, reviewed by Roldan Taylor rr5 PA. 23:52 IV discontinued, intact, bleeding controlled, No redness/swelling at site. Pressure rr5 dressing applied. Administered Medications: 21:36 Drug: Aspirin Chewable Tablet 324 mg Route: PO; rr5 22:30 Follow up: Response: No adverse reaction rr5 Outcome: 23:41 Discharge ordered by . teresa 23:52 Discharged to home ambulatory. rr5 23:52 Condition: stable 23:52 Discharge instructions given to patient, Instructed on discharge instructions, follow up and referral plans. medication usage, Demonstrated understanding of instructions, follow-up care, medications, Prescriptions given X 1. 23:52 Patient left the ED. rr5 Signatures: Dispatcher [employer] EDMS Eduardo Otto RN Roldan Betancur PA PA cp Stewart, Lisa RN RN ls4 Nilton Peterson RN RN rr5 Sheryl Clinton bp1
--- NOTE | 2020-04-04 18:24 | EDPHYS ---
Physician Documentation [facility] Name: Miguel Gonzalez Age: 54 yrs Sex: Male : 1965 Arrival Date: 04/02/2020 Time: 19:30 Bed 4 Private MD: ED Physician Anselmo Cárdenas HPI: 04/02 19:50 This 54 yrs old Male presents to ER via Ambulatory with complaints of Chest cp Tightness. Historical: - Allergies: 19:39 PENICILLINS; sg - PMHx: 19:39 radiation treatment; throat cancer; sg - Immunization history:: Adult Immunizations up to date. - Social history:: Smoking status: Patient denies any tobacco usage or history of. Exam: 19:50 ECG was reviewed by the Attending Physician. cp 23:15 ECG was reviewed by the Attending Physician. cp Vital Signs: 20:13 BP 133 / 95; Pulse 77; Resp 20; Temp 97.9(O); Pulse Ox 99% on R/A; Weight 72.57 kg; ls4 Height 6 ft. 1 in. (185.42 cm); Pain 0/10; 20:57 BP 133 / 95; Pulse 70; Resp 18; Pulse Ox 99% ; rr5 22:00 BP 144 / 91; Pulse 66; Resp 16; Pulse Ox 99% on R/A; Pain 0/10; ls4 23:00 BP 136 / 90; Pulse 65; Resp 18; Pulse Ox 98% on R/A; Pain 0/10; rr5 23:50 BP 141 / 85; Pulse 60; Resp 17; Temp 97.8; Pulse Ox 99% ; rr5 20:13 Body Mass Index 21.11 (72.57 kg, 185.42 cm) ls4 MDM: 19:42 Patient medically screened. cp 04/02 19:43 Order name: Basic Metabolic Panel; Complete Time: 21:29 cp 04/02 21:29 Interpretation: Normal except: CL 109; GLUC 141; GFR 80. cp 04/02 19:43 Order name: CBC with Diff; Complete Time: 21:29 cp 04/02 21:30 Interpretation: Reviewed. cp 04/02 19:43 Order name: LFT's; Complete Time: 21:29 cp 04/02 21:30 Interpretation: Normal except: ALB 3.3; GLOB 3.8; A/G 0.9. cp / 19:43 Order name: Magnesium; Complete Time: 21:29 cp 30 19:43 Order name: NT PRO-BNP; Complete Time: 21:29 cp 04/02 19:43 Order name: PT-INR; Complete Time: 21:29 cp /30 19:43 Order name: Troponin (emerg Dept Use Only); Complete Time: 21:29 cp 30 21:30 Interpretation: Within normal limits: TROPED < 0.02. cp / 19:43 Order name: XRAY Chest (1 view); Complete Time: 21:29 cp /30 19:43 Order name: EKG; Complete Time: 19:43 cp 04/02 19:43 Order name: Cardiac monitoring; Complete Time: 19:55 cp 04/02 19:43 Order name: EKG - Nurse/Tech; Complete Time: 19:55 cp 04/02 22:55 Order name: EKG; Complete Time: 22:55 cp 04/02 22:55 Order name: Troponin I; Complete Time: 23:40 cp 04/02 23:40 Interpretation: Reviewed, Reviewed. cp 04/02 19:43 Order name: IV Saline Lock; Complete Time: 19:55 cp 30 19:43 Order name: Labs collected and sent; Complete Time: 19:55 cp 04/02 19:43 Order name: O2 Per Protocol; Complete Time: 19:55 cp 04/02 19:43 Order name: O2 Sat Monitoring; Complete Time: 19:55 cp /30 22:55 Order name: EKG - Nurse/Tech; Complete Time: 23:16 cp EC:50 Rate is 78 beats/min. Rhythm is regular. NV interval is normal. QRS interval is normal. cp QT interval is normal. T waves are Inverted in lead aVR. Interpreted by me. Reviewed by me. 23:15 Rate is 58 beats/min. Rhythm is regular. NV interval is normal. QRS interval is normal. cp T waves are Inverted in leads III, aVR. Interpreted by me. Reviewed by me. Administered Medications: 21:36 Drug: Aspirin Chewable Tablet 324 mg Route: PO; rr5 22:30 Follow up: Response: No adverse reaction rr5 Disposition: 04/02/20 23:41 Discharged to Home. Impression: Chest pain, unspecified. - Condition is Stable. - Discharge Instructions: Nonspecific Chest Pain, Aspirin and Your Heart. - Prescriptions for Pepcid 20 mg Oral Tablet - take 1 tablet by ORAL route every 12 hours for 10 days; 20 tablet. - Medication Reconciliation Form, Thank You Letter, Antibiotic Education, Prescription Opioid Use form. - Follow up: Private Physician; When: 2 - 3 days; Reason: Recheck today's complaints. - Problem is new. - Symptoms have improved. Signatures: Dispatcher [employer] EDEduardo Loco RN RN sg Roldan Taylor PA PA cp Roque, Raymond RN RN rr5 Corrections: (The following items were deleted from the chart) 23:52 23:41 04/02/2020 23:41 Discharged to Home. Impression: Chest pain, unspecified. rr5 Condition is Stable. Forms are Medication Reconciliation Form, Thank You Letter, Antibiotic Education, Prescription Opioid Use. Follow up: Private Physician; When: 2 - 3 days; Reason: Recheck today's complaints. Problem is new. Symptoms have improved. cp
== END 2020-04-02 23:52 | disposition home or self-care (01) ==
LOC: ER 19:26
DX: R07.9 Chest pain, unspecified (principal); Z88.0 Allergy status to penicillin
CPT/HCPCS: 36415; 71045; 80048; 80076; 83735; 83880; 84484; 85025; 85610; 93005; 99285

== ENCOUNTER 2020-09-11 10:08 | Emergency (ER) | payer OTHER ==
--- OUTSIDE RECORDS SUMMARY | 2020-09-11 10:11 | XMS REPORT | Continuity of Care Document ---
:1965 Author Organization [facility] t Address [address] [place] [address] Care Team Providers Name Role Phone Froilan Wynn DO Attending Clinician GUS GEORGE Attending Clinician Unavailable PROVIDER, ED TEMP Attending Clinician Unavailable Herb Attending Clinician Unavailable Problems This patient has no known problems. Allergies, Adverse Reactions, Alerts Allergy Allergy Status Severity Reaction(s) Onset Inactive Treating Comm ents Source Name Type Date Date Clinician PCN Adverse Active Info Not [facility] Reaction Available [facility] Medications Ordered Filled Start Stop Current Ordering Indication Dosage Frequency Signature Comments Components Source Medication Medication Date Date Medication? Clinician (SIG) Name Name Tizanidine Tizanidine Yes Riley [address] [facility] HCl HCl 6- Chelsey as needed [facility] - 00[facility]: at bed[facility] 00 [facility] Levothyroxi Levothyroxi Yes Riley [address] [facility] ne Sodium ne Sodium 16 Calvin in the L ukes - 00:00: morning on [facility]oria 00 an empty l stomach [facility] Tamsulosin Tamsulosin 2020- No Riley [address] [facility] HCl HCl 02-17-13 Calvin [facility] 00:00 [facility] 00 :00 l [facility] Magnesium Magnesium 2019- No Riley [address] [facility] Oxide -Mg Oxide -Mg 4-16 07-15 Chelsey as needed [facility] - Supplement Supplement 00:00: 00:00 [facility] 00 :00 [facility] Omeprazole Omeprazole 2019-0 Yes Riley [address] [facility] 5-10 Calvin [facility] - 00:[facility]: [facility] 00 [facility] Tizanidine Tizanidine Yes Riley [address] [facility] HCl HCl Chelsey as needed [facility] Ipratropium Ipratropium Yes Riley [address] [facility] Orlinda Orlinda Chelsey in each Luke s - nostril [facility] Citalopram Citalopram Yes Riley [address] [facility] Hydrobromid Hydrobromid Calvin [facility] Procedures This patient has no known procedures. Encounters Start End Encounter Admission Attending Care Care Encounter Source Date/Time Date/Time Type Type Clinicians Facility Department ID 2020-09-06 2020-09-06 Outpatient [facility] [id number] [facility] 2020-05-03 2020-05-03 [facility] [id number] [facility] 13:00:00 13:00:00 t Specialty/U Jenny kes - Specialty rology [facility] /[facility]rology [facility] l [facility] 2020-04-28 2020-04-28 [facility] [id number] [facility] 11:25:00 11:25:00 t GELI [facility] 2020-04-05 2020-04-05 [facility] [id number] [facility] 15:01:00 15:01:00 t Specialty/U Jenny kes - Specialty rology Memori a /Urology Clinic l Clinic [facility] ent Clinics 2020-03-25 2020-03-25 [facility] [id number] [facility] 10:15:00 10:15:00 t [facility] Outpati ent Clinics 2020-03-02 2020-03-02 [facility] [id number] [address] 12:39:00 12:39:00 t Specialty/U Jenny kes - Specialty rology [facility] /Urology Clinic [facility] 2020-02-29 2020-02-29 Outpatient [facility] [id number] 14:00:00 14:00:00 t Specialty/U Jenny muñiz - Special[facility] rology [facility] 2019-06-01 2019-06-01 Emergency DONNY Wynn [id number] 08:49:26 10:20:00 Froilan Garcia [id number] [place] [id number] [place] [id number] Results Test Description Test Time Test [...] = UABLD) Negative Negative Urine Source: Urine [id number] 22:00:00 Test Item Value Reference Range Interpretation Comments Chemistry (test 1.3 ng/mL 0-6.6 N code = CKMBM-T) Chemistry (test Less than < 0.028 code = TROPI-T) 0.010 ng/mL Reference Ra nge 0. 00 - 0.028 ng/mL Negative 0.029 - 0.29 n g/mL Indeterminate Greater or Equa l to 0.3 ng/mL [place] [id number] 19:21:00 Test Item Value Reference Range Interpretation [...] code 29 U/L 8-55 N = ALT) [id number] 19:21:00 Test Item Value Reference Range Interpretation Comments Chemistry (test code = LIP) 27 U/L 8-78 N [id number] 18:58:00 Test Item Value Reference Range Interpretation [...] code = BASO#) 0.0 thou/uL 0.0-0.2 N [id number] 14:29:00 Test Item Value Reference Range Interpretation [...] = UABLD) Negative Negative Urine Source: Urine [id number] 13:32:00 Test Item Value Reference Range Interpretation [...] code 37 U/L 8-55 N = ALT) [id number] 13:10:00 Test Item Value Reference Range Interpretation [...] code = BASO#) 0.1 thou/uL 0.0-0.2 N [id number] 14:04:00 Test Item Value Reference Range Interpretation [...] = UABLD) Negative Negative Urine Source: Urine [id number] 12:39:00 Test Item Value Reference Range Interpretation [...] code 18 U/L 8-55 N = ALT) [id number] 12:39:00 Test Item Value Reference Range Interpretation Comments Chemistry (test code = LIP) 55 U/L 8-78 N [id number] 12:16:00 Test Item Value Reference Range Interpretation [...]
--- OUTSIDE RECORDS SUMMARY | 2020-09-11 10:11 | XMS REPORT ---
:1965 Author Organization [facility] Address [address] 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 Problem Esophagitis K20.9 Active 48193241 Problem Chronic J32.9 Active 12964460 congestion of paranasal sinus Problem Chronic ethmoidal J32.2 Active 74372878 sinusitis 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, cervical region Problem Kidney stone N20.0 Active 08653216 Problem Non-seasonal J30.1 Active 80256128 allergic rhinitis due to pollen Problem Neck pain M54.2 Active 74923067 Problem History of Z86.39 Active 144175144 thyroid disease Problem Anxiety about F41.8 Active 027326959 health Problem Other chronic G89.29 Active 02322892 pain Problem Acquired E03.9 Active 169119853 hypothyroidism Problem Penile lesion N48.9 Active 88834425 ALLERGIES Allergen (clinical drug Drug/Non Drug Allergy Reaction Allergy Type Onset Date Status ingredient) documented on EMR PCN Unknown Drug Allergy Active ENCOUNTERS from 1965 to 2020-09-06 Encounter Location Date Provider Diagnosis [facility] [address] [address] Sep, Mansi Siddiqi Neck pain M54.2 [place] [address] IMMUNIZATIONS No Information SOCIAL HISTORY Tobacco Use: Social History Observation Description Date Details (start date - stop date) Current Smoker Sex Assigned At : Social History Observation Description Sex Assigned At Unknown Tobacco Use/Smoking Question Answer Notes Are you a current smoker How often do you smoke cigarettes? every day REASON FOR REFERRAL No Information VITAL SIGNS No information MEDICATIONS Medication SIG (Take, Route, Start Date End Date Status Frequency, Duration) Citalopram Hydrobromide 20 MG TAKE 1 TABLET BY MOUTH Active EVERY DAY for 30 Ipratropium [place] 0.06 % 2 sprays in each nostril Active Nasally every 8 hrs for 90 days Levothyroxine Sodium 50 MCG TAKE 1 TABLET BY MOUTH Active EVERY MORNING ON AN EMPTY STOMACH for 30 Tizanidine HCl 2 MG 1 capsule as needed Orally Active at bedtime for 30 Omeprazole 40 MG 1 capsule Orally twice a March, Active day for 30 day(s) Tizanidine HCl 2 MG TAKE 1 TABLET BY MOUTH Active DAILY AT BEDTIME NEEDED for 30 Tamsulosin HCl 0.4 MG 1 capsule Orally Once a Active day for 30 Dexilant 60 MG TAKE 1 CAPSULE BY MOUTH Ac tive EVERY DAY for 30 PROCEDURES No Information RESULTS No Results REASON FOR VISIT referral/Xray request MEDICAL (GENERAL) HISTORY Type Description Date Medical History Vitamin deficiency, unspecified Medical History Actinic keratosis Medical History Chronic solar dermatitis Medical History Generalized abdominal pain Medical History 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 Surgical History Cholecystectomy 2010 Surgical History Hernia Repair x 2 2011 Surgical History Nasal Endoscopy w/ BX of Nasopharyngeal tumor 03/23/2016 Surgical History PEG Tube Placement 05/30/2016 Surgical History Left Forearm Surgery Surgical History Punch Biopsy of suspicious right back le sions, right arm, 08/14/2016 right inner thigh Goals Section No Information Health Concerns No Information MEDICAL EQUIPMENT No Information MENTAL STATUS No Information FUNCTIONAL STATUS No Information ASSESSMENTS Encounter Date Diagnosis Notes Sep, Neck pain (ICD-10 - M54.2) PLAN OF TREATMENT Medication Medication Name Sig Start Date Stop Date Citalopram Hydrobromide 20 MG TAKE 1 TABLET BY MOUTH EVERY DAY for 30 Tizanidine HCl 2 MG TAKE 1 TABLET BY MOUTH DAILY AT BEDTIME NEEDED for 30 Levothyroxine Sodium 50 MCG TAKE 1 TABLET BY MOUTH EVERY MORNING ON AN EMPTY STOMACH for 30 Tamsulosin HCl 0.4 MG 1 capsule Orally Once a day for 30 Dexilant 60 MG TAKE 1 CAPSULE BY MOUTH EVERY DAY for 30 Next Appt Details Provider Name:Mansi Siddiqi, 2020-09-07 03:4 0:00 PM, [address], [address], [place], [address], Provider Name:Mansi Siddiqi 2020-09-13 01:4 0:00 PM, [address], [address], [place], [address], Insurance Providers Payer Name Payer Address Payer Insured Patient Coverage Cover age End Phone Name Relationship to Start Date Mauro e Insured [employer] [address] [phone] Gonzalez [address] [address]
[2020-09-11] MEDS ORDERED: MORPHINE 2 MG/ML SYR ONE (12:03)
[2020-09-11] MEDS ORDERED: ONDANSETRON 4 MG/2 ML VIAL ONE (12:03)
[2020-09-11] MEDS ORDERED: NA CHLORIDE 0.9% 1,000 ML ONE (12:04)
[2020-09-11] MEDS ORDERED: NA CHLORIDE 0.9% 500 ML ONE (12:04)
[2020-09-11 12:17] LABS: Absolute Lymphocytes (CBC) 1.1 K/uL (0.7-4.9); Hematocrit 40.7 % (39.6-49.0); Lymphocytes % 9.7 % (15.3-44.8); RBC Red Blood Cell Count 4.38 M/uL (4.33-5.43)
--- NOTE | 2020-09-11 12:26 | RAD REPORT ---
EXAM DESCRIPTION: RAD - Chest Single View - 09/11/2020 11:56 am CLINICAL HISTORY: COUGH Chest pain. COMPARISON: Chest Single View dated 04/02/2020; Chest Pa And Lat (2 Views) dated 09/24/2019; Chest Pa And Lat (2 Views) dated 11/27/2016; Chest Single View dated 07/12/2016 FINDINGS: Portable technique limits examination quality. The lungs are grossly clear. The heart is normal in size. No displaced fractures. IMPRESSION: No acute intrathoracic process suspected.
[2020-09-11 12:35] LABS: ALT/SGPT 40 U/L (12-78); AST/SGOT 22 U/L (15-37); Albumin 3.5 g/dL (3.4-5.0); Alkaline Phosphatase 87 U/L (45-117); BUN Blood Urea Nitrogen 18 mg/dL (7-18); Bicarbonate 29 mmol/L (21-32); Bilirubin Direct 0.1 mg/dL (0-0.2); Bilirubin Total 0.7 mg/dL (0.2-1.0); Glucose Level 125 mg/dL (74-106); Lipase 126 U/L (73-393); Magnesium 2.2 mg/dL (1.8-2.4); NT PRO-BNP 60 pg/mL (<125); Potassium 3.6 mmol/L (3.5-5.1); Sodium Level 143 mmol/L (136-145); Troponin (Emerg Dept Use Only) < 0.02 ng/mL (0.0-0.045)
--- NOTE | 2020-09-11 13:39 | RAD REPORT ---
EXAM DESCRIPTION: CT - Angio Aorta For Dissection - 09/11/2020 1:19 pm CLINICAL HISTORY: Chest pain radiating to the back. Chest pain;Dissection;PE COMPARISON: No comparisons TECHNIQUE: CT angiography of the aorta was performed with MIPs. All CT scans are performed using dose optimization technique as appropriate and may include automated exposure control or mA/KV adjustment according to patient size. FINDINGS: A left aortic arch is present with normal branching pattern of the great vessels.No acute aortic finding is seen such as aneurysm, penetrating ulcer or dissection. The celiac axis, SMA, BRENNA and renal arteries are patent. No evidence of pulmonary embolism. Linear opacities are present in both lung bases, likely representing atelectasis. No focal pulmonary infiltrate. The liver demonstrates no focal mass or biliary dilatation.Cholecystectomy clips.The spleen, pancreas , adrenal glands and kidneys are within normal limits for arterial phase imaging. No bowel obstruction, free fluid or abscess.No pathologic enlarged lymphadenopathy identified. No fracture or worrisome bone lesion seen. IMPRESSION: No acute aortic finding is demonstrated.
--- NOTE | 2020-09-11 14:47 | ER ---
Nurse's Notes [facility] Name: Miguel Gonzalez Age: 54 yrs Sex: Male : 1965 Arrival Date: 09/11/2020 Time: 10:12 Bed 19 Private MD: Diagnosis: Strain of muscle and tendon of back wall of thorax;Tobacco abuse counseling;Tobacco use;Pleurisy Presentation: 09/11 10:30 Chief complaint: Patient states: has been dealing with this for a couple weeks, this iw morning woke up and felt like he was drowning, feels like fluid in his lungs, has been having pain when he breathes and gets spasms in his back. Coronavirus screen: At this time, the client does not indicate any symptoms associated with coronavirus-19. Ebola Screen: Patient negative for fever greater than or equal to 101.5 degrees Fahrenheit, and additional compatible Ebola Virus Disease symptoms Patient denies exposure to infectious person. Patient denies travel to an Ebola-affected area in the 21 days before illness onset. No symptoms or risks identified at this time. Initial Sepsis Screen: Does the patient meet any 2 criteria? No. Patient's initial sepsis screen is negative. Does the patient have a suspected source of infection? No. Patient's initial sepsis screen is negative. Risk Assessment: Do you want to hurt yourself or someone else? Patient reports no desire to harm self or others. Onset of symptoms was September 11, 2020. 10:30 Method Of Arrival: Ambulatory iw 10:30 Acuity: NASRA 3 iw Historical: - Allergies: 10:34 PENICILLINS; iw - Home Meds: 10:34 tizanidine oral oral [Active]; Synthroid Oral [Active]; Flomax 0.4 mg Oral cp24 iw [Active]; - PMHx: 10:34 radiation treatment; throat cancer; Hypothyroidism; Anxiety; enlarged prostate; iw - PSHx: 10:34 Cholecystectomy; Hernia repair; left arm; iw - Immunization history:: Adult Immunizations not up to date. - Social history:: Smoking status: Patient reports the use of cigarette tobacco products, smokes one-half pack cigarettes per day. - Family history:: not pertinent. Screenin:42 Abuse screen: Denies threats or abuse. Nutritional screening: No deficits noted. ll1 Tuberculosis screening: No symptoms or risk factors identified. Fall Risk IV access (20 points). Total Yuan Fall Scale indicates No Risk (0-24 pts). Assessment: 11:25 General: Appears in no apparent distress. Behavior is calm, cooperative, appropriate ll1 for age. Pain: Complains of pain in upper/mid back Quality of pain is described as aching, crampy, Pain began 2-3 weeks Is intermittent. Neuro: Level of Consciousness is awake, alert, obeys commands, Oriented to person, place, time, situation, Appropriate for age Potato Grader are equal bilaterally Moves all extremities. Full function Gait is steady, Speech is normal, Facial symmetry appears normal. Cardiovascular: No deficits noted. Respiratory: Reports shortness of breath while sleeping, laying flat pain with respiration Airway is patent Trachea midline Respiratory effort is even, unlabored, Respiratory pattern is regular, symmetrical, Breath sounds are clear bilaterally. Onset: The symptoms/episode began/occurred 2-3 weeks. GI: Abdomen is flat, Bowel sounds present X 4 quads. Abd is soft and non tender Abd is soft Reports nausea. : No deficits noted. Musculoskeletal: Circulation, motion, and sensation intact. Capillary refill < 3 seconds, Range of motion: intact in all extremities, Reports pain in upper/mid back. 12:25 Reassessment: Patient and/or family updated on plan of care and expected duration. Pain ll1 level reassessed. Patient is alert, oriented x 3, equal unlabored respirations, skin warm/dry/pink. 13:25 Reassessment: Patient and/or family updated on plan of care and expected duration. Pain ll1 level reassessed. Patient is alert, oriented x 3, equal unlabored respirations, skin warm/dry/pink. 14:25 Reassessment: Patient and/or family updated on plan of care and expected duration. Pain ll1 level reassessed. Patient is alert, oriented x 3, equal unlabored respirations, skin warm/dry/pink. Vital Signs: 10:30 BP 121 / 95; Pulse 85; Resp 16; Pulse Ox 98% on R/A; Weight 83.91 kg; Height 6 ft. 2 iw in. (187.96 cm); Pain 10/10; 12:58 BP 93 / 57; Pulse 54; Resp 17; Pulse Ox 98% ; ll1 13:38 BP 95 / 65; Pulse 54; Resp 18; Pulse Ox 99% ; ll1 15:07 BP 105 / 69; Pulse 57; Resp 18; Pulse Ox 99% ; ll1 10:30 Body Mass Index 23.75 (83.91 kg, 187.96 cm) iw ED Course: 10:12 Patient arrived in ED. mr 10:32 Triage completed. iw 10:34 Arm band placed on. iw 11:07 Bryan Amaya NP is PHCP. pm1 11:07 Roldan Rogel MD is Attending Physician. pm1 11:21 Jaja Herrera, MICHAEL is Primary Nurse. ll1 11:25 Patient has correct armband on for positive identification. Bed in low position. Call ll1 light in reach. Side rails up X 1. bus driver/monitor on. Pulse ox on. NIBP on. 11:30 Inserted saline lock: 18 gauge in right antecubital area, using aseptic technique. ll1 Blood collected. 11:56 XRAY Chest (1 view) In Process Unspecified. EDMS 13:19 CT Aorta for Dissection In Process Unspecified. EDMS 14:46 Carlos Jama MD is Referral Physician. tayo 15:06 IV discontinued, intact, bleeding controlled, No redness/swelling at site. Pressure ll1 dressing applied. 15:06 No provider procedures requiring assistance completed. ll1 Administered Medications: 12:00 Not Given (gives him bad headache): morphine 2 mg IVP once; (PAIN>8) RASS on ADMN: ll1 Combtv4, Very Agttd3, Agttd2, Rstlss1, AlertClm0, Drwsy-1, LtSdtn-2, ModSdtn-3, DpSdtn-4, UnArsble-5 x2 12:05 Drug: NS 0.9% 500 ml Route: IV; Rate: bolus; Site: right antecubital; ll1 13:38 Follow up: Response: No adverse reaction; RASS: Alert and Calm (0); IV Status: ll1 Completed infusion; IV Intake: 500ml 12:05 Not Given (Patient Refused): Zofran (Ondansetron) 4 mg IVP once; over 2 minutes ll1 12:06 Drug: NS 0.9% 1000 ml Route: IV; Rate: 125 ml/hr; Site: right antecubital; ll1 15:07 Follow up: Response: No adverse reaction; RASS: Alert and Calm (0); IV Status: ll1 Completed infusion; IV Intake: 300ml 15:03 Drug: Aspirin Chewable Tablet 162 mg Route: PO; ll1 15:07 Follow up: Response: No adverse reaction; RASS: Alert and Calm (0) ll1 Intake: 13:38 IV: 500ml; Total: 500ml. ll1 15:07 IV: 300ml; Total: 800ml. 1 Outcome: 14:47 Discharge ordered by . tayo 15:08 Discharged to home ambulatory. ll1 15:08 Condition: stable 15:08 Discharge instructions given to patient, Instructed on discharge instructions, follow up and referral plans. medication usage, Demonstrated understanding of instructions, follow-up care, medications, Prescriptions given X 2. 15:09 Patient left the ED. 1 Signatures: Dispatcher [employer] EDRoldan Brandon MD MD cha Rivera, Mary mr Williams, Irene, Bryan Vázquez RN, NP REPAIRER SASH AND DOOR [email or web address] Jaja Herrera RN RN [facility]
--- NOTE | 2020-09-11 14:47 | EDPHYS ---
Physician Documentation [facility] Name: Miguel Gonzalez Age: 54 yrs Sex: Male : 1965 Arrival Date: 09/11/2020 Time: 10:12 Bed 19 Private MD: MENDEZ Physician Roldan Rogel HPI: 09/11 11:41 This 54 yrs old Male presents to ER via Ambulatory with complaints of Back tayo Pain, Hurts to breath. 11:41 The patient presents with pain that is acute, with no known mechanism of injury. The tayo symptoms are located in the left subscapular area, right subscapular area, left mid back and right mid back. Onset: The symptoms/episode began/occurred 2 week(s) ago. The pain does not radiate. Associated signs and symptoms: The patient has no apparent associated signs or symptoms. The problem was sustained from unknown cause. Severity of symptoms: At their worst the symptoms were mild, in the emergency department the symptoms are unchanged. The patient has not experienced similar symptoms in the past. Historical: - Allergies: 10:34 PENICILLINS; iw - Home Meds: 10:34 tizanidine oral oral [Active]; Synthroid Oral [Active]; Flomax 0.4 mg Oral cp24 iw [Active]; - PMHx: 10:34 radiation treatment; throat cancer; Hypothyroidism; Anxiety; enlarged prostate; iw - PSHx: 10:34 Cholecystectomy; Hernia repair; left arm; iw - Immunization history:: Adult Immunizations not up to date. - Social history:: Smoking status: Patient reports the use of cigarette tobacco products, smokes one-half pack cigarettes per day. - Family history:: not pertinent. ROS: 11:41 Constitutional: Negative for fever, chills, and weight loss, Eyes: Negative for injury, tayo pain, redness, and discharge, ENT: Negative for injury, pain, and discharge, Neck: Negative for injury, pain, and swelling, Cardiovascular: Negative for chest pain, palpitations, and edema, Abdomen/GI: Negative for abdominal pain, nausea, vomiting, diarrhea, and constipation, : Negative for injury, bleeding, discharge, and swelling, MS/Extremity: Negative for injury and deformity, Skin: Negative for injury, rash, and discoloration, Neuro: Negative for headache, weakness, numbness, tingling, and seizure, Psych: Negative for depression, anxiety, suicide ideation, homicidal ideation, and hallucinations, Allergy/Immunology: Negative for hives, rash, and allergies, Endocrine: Negative for neck swelling, polydipsia, polyuria, polyphagia, and marked weight changes, Hematologic/Lymphatic: Negative for swollen nodes, abnormal bleeding, and unusual bruising. 11:41 Respiratory: Positive for cough, shortness of breath. 11:41 Back: Positive for pain at rest, pain with movement, of the left subscapular area, right subscapular area, left mid back and right mid back. Exam: 11:41 Constitutional: This is a well developed, well nourished patient who is awake, alert, tayo and in no acute distress. Head/Face: Normocephalic, atraumatic. Eyes: Pupils equal round and reactive to light, extra-ocular motions intact. Lids and lashes normal. Conjunctiva and sclera are non-icteric and not injected. Cornea within normal limits. Periorbital areas with no swelling, redness, or edema. ENT: Nares patent. No nasal discharge, no septal abnormalities noted. Tympanic membranes are normal and external auditory canals are clear. Oropharynx with no redness, swelling, or masses, exudates, or evidence of obstruction, uvula midline. Mucous membranes moist. Neck: Trachea midline, no thyromegaly or masses palpated, and no cervical lymphadenopathy. Supple, full range of motion without nuchal rigidity, or vertebral point tenderness. No Meningismus. Chest/axilla: Normal chest wall appearance and motion. Nontender with no deformity. No lesions are appreciated. Abdomen/GI: Soft, non-tender, with normal bowel sounds. No distension or tympany. No guarding or rebound. No evidence of tenderness throughout. Male : Normal genitalia with no discharge or lesions. Skin: Warm, dry with normal turgor. Normal color with no rashes, no lesions, and no evidence of cellulitis. MS/ Extremity: Pulses equal, no cyanosis. Neurovascular intact. Full, normal range of motion. Neuro: Awake and alert, GCS 15, oriented to person, place, time, and situation. Cranial nerves II-XII grossly intact. Motor strength 5/5 in all extremities. Sensory grossly intact. Cerebellar exam normal. Normal gait. Psych: Awake, alert, with orientation to person, place and time. Behavior, mood, and affect are within normal limits. 11:41 Cardiovascular: Rate: normal, Rhythm: regular, Pulses: Pulses are 4+ in bilateral radial, brachial, femoral, popliteal, posterior tibial and and dorsalis pedis arteries.. Heart sounds: normal, Edema: is not appreciated, JVD: is not appreciated. 11:41 Musculoskeletal/extremity: DVT Exam: No signs of deep vein thrombosis. no pain, no swelling, no tenderness, negative Homans' sign noted on exam, no appreciated bluish discoloration, no erythema, no increased warmth. 12:56 ECG was reviewed by the Attending Physician. [facility] Vital Signs: 10:30 BP 121 / 95; Pulse 85; Resp 16; Pulse Ox 98% on R/A; Weight 83.91 kg; Height 6 ft. 2 iw in. (187.96 cm); Pain 10/10; 12:58 BP 93 / 57; Pulse 54; Resp 17; Pulse Ox 98% ; ll1 13:38 BP 95 / 65; Pulse 54; Resp 18; Pulse Ox 99% ; ll1 15:07 BP 105 / 69; Pulse 57; Resp 18; Pulse Ox 99% ; ll1 10:30 Body Mass Index 23.75 (83.91 kg, 187.96 cm) iw MDM: 11:07 Patient medically screened. [facility] 11:45 Differential diagnosis: Abdominal Aortic Aneurysm Cholelithiasis Fatigue Neoplasm tayo Osteoarthritis Osteoporosis Perforated Ulcer sprain, Ureterolithiasis. Data reviewed: vital signs, nurses notes, lab test result(s), EKG, radiologic studies. Data interpreted: patient monitor: rate is 85 beats/min, Pulse oximetry: on room air is 98 %. Test interpretation: by ED physician or midlevel provider: ECG, plain radiologic studies. Counseling: I had a detailed discussion with the patient and/or guardian regarding: the historical points, exam findings, and any diagnostic results supporting the discharge/admit diagnosis, lab results, radiology results, smoking cessation. 14:45 ED course: all labs reviewed and discussed, will dc with follow up. [facility] 09/11 11:41 Order name: NT PRO-BNP; Complete Time: 12:51 [facility] 09/11 11:41 Order name: Basic Metabolic Panel; Complete Time: 12:51 [facility] 09/11 11:41 Order name: CBC with Diff; Complete Time: 12:34 [facility] 09/11 11:41 Order name: LFT's; Complete Time: 12:51 [facility] 09/11 11:41 Order name: Magnesium; Complete Time: 12:51 [facility] 09/11 11:41 Order name: Troponin (emerg Dept Use Only); Complete Time: 12:51 [facility] 09/11 11:41 Order name: XRAY Chest (1 view); Complete Time: 12:34 [facility] 09/11 11:41 Order name: Lipase; Complete Time: 12:51 [facility] 09/11 11:41 Order name: CT Aorta for Dissection; Complete Time: 13:44 [facility] 09/11 11:41 Order name: EKG; Complete Time: 11:42 [facility] 09/11 11:41 Order name: Cardiac monitoring; Complete Time: 13:39 [facility] 09/11 11:41 Order name: EKG - Nurse/Tech; Complete Time: 13:39 [facility] 09/11 11:41 Order name: IV Saline Lock; Complete Time: 13:39 [facility] 09/11 11:41 Order name: Labs collected and sent; Complete Time: 13:39 [facility] 09/11 11:41 Order name: O2 Per Protocol; Complete Time: 13:39 [facility] 09/11 11:41 Order name: O2 Sat Monitoring; Complete Time: 13:39 [facility] EC:56 Rate is 58 beats/min. Rhythm is regular. QRS [place] is Normal. [place] interval is normal. QRS tayo interval is normal. QT interval is normal. No Q waves. T waves are Normal. No ST changes noted. Clinical impression: NSR w/ Non-specific ST/T Changes and No evidence of ischemia. Interpreted by me. Reviewed by me. Administered Medications: 12:00 Not Given (gives him bad headache): morphine 2 mg IVP once; (PAIN>8) RASS on ADMN: ll1 Combtv4, Very Agttd3, Agttd2, Rstlss1, AlertClm0, Drwsy-1, LtSdtn-2, ModSdtn-3, DpSdtn-4, UnArsble-5 x2 12:05 Drug: NS 0.9% 500 ml Route: IV; Rate: bolus; Site: right antecubital; ll1 13:38 Follow up: Response: No adverse reaction; RASS: Alert and Calm (0); IV Status: ll1 Completed infusion; IV Intake: 500ml 12:05 Not Given (Patient Refused): Zofran (Ondansetron) 4 mg IVP once; over 2 minutes ll1 12:06 Drug: NS 0.9% 1000 ml Route: IV; Rate: 125 ml/hr; Site: right antecubital; ll1 15:07 Follow up: Response: No adverse reaction; RASS: Alert and Calm (0); IV Status: ll1 Completed infusion; IV Intake: 300ml 15:03 Drug: Aspirin Chewable Tablet 162 mg Route: PO; ll1 15:07 Follow up: Response: No adverse reaction; RASS: Alert and Calm (0) ll1 Disposition: 09/11/20 14:47 Discharged to Home. Impression: Strain of muscle and tendon of back wall of thorax, Tobacco abuse counseling, Tobacco use, Pleurisy. - Condition is Stable. - Discharge Instructions: Back Pain, Adult, Pleurisy, Steps to Quit Smoking, Smoking Hazards, Back Pain, Adult, [id number], Steps to Quit Smoking, [id number], Aspirin and Your Heart, Pleurisy, Amed-ne-Nebl. - Prescriptions for Motrin IB 200 mg Oral Tablet - take 2 tablet by ORAL route every 6 hours As needed as needed with food; 30 tablet. Pepcid 20 mg Oral Tablet - take 1 tablet by ORAL route every 12 hours for 10 days; 20 tablet. - Medication Reconciliation Form, Thank You Letter, Antibiotic Education, Prescription Opioid Use form. - Follow up: Private Physician; When: 2 - 3 days; Reason: Recheck today's complaints, Continuance of care, Re-evaluation by your physician. Follow up: Carlos Jama MD; When: 2 - 3 days; Reason: Recheck today's complaints, Continuance of care, Re-evaluation by your physician. - Problem is new. - Symptoms have improved. Signatures: Dispatcher [employer] EDMS Roldan Rogel MD MD cha Williams, Irene, RN RN iw Lewis, Lynsay, RN RN ll1 Corrections: (The following items were deleted from the chart) 15:07 11:41 Urine Dipstick-Ancillary ordered. tayo [facility] 15:09 14:47 09/11/2020 14:47 Discharged to Home. Impression: Strain of muscle and tendon of ll1 back wall of thorax; Tobacco abuse counseling; Tobacco use; Pleurisy. Condition is Stable. Forms are Medication Reconciliation Form, Thank You Letter, Antibiotic Education, Prescription Opioid Use. Follow up: Private Physician; When: 2 - 3 days; Reason: Recheck today's complaints, Continuance of care, Re-evaluation by your physician. Follow up: Carlos Jama; When: 2 - 3 days; Reason: Recheck today's complaints, Continuance of care, Re-evaluation by your physician. Problem is new. Symptoms have improved. tayo
[2020-09-11] MEDS ORDERED: ASPIRIN 81 MG CHEWABLE TABLET ONE (15:11)
[2020-09-11 15:29] VITALS: O2SAT 99
[2020-09-11 15:30] VITALS: BP 105/69
--- NOTE | 2020-09-12 07:25 | EKG ---
Test Date: 2020-09-11 Test Time: 12:15:52 Piano Instructor: IVON MEASUREMENT RESULTS: Intervals: Rate: 58 [place]: 178 QRSD: 86 QT: 410 QTc: 402 [place]: P: 49 [place]: 178 QRS: -17 T: 30 INTERPRETIVE STATEMENTS: Sinus bradycardia Moderate voltage criteria for LVH, may be normal variant Borderline ECG Compared to ECG 04/02/2020 23:12:29 No significant changes Electronically Signed On 09-12-20 07:23:25 DIRECTOR EXTERNAL COMMUNICATIONS by Carlos Jama
== END 2020-09-11 15:09 | disposition home or self-care (01) ==
LOC: ER 10:08
DX: S29.012A Strain of muscle and tendon of back wall of thorax, initial encounter (principal); R09.1 Pleurisy; Z72.0 Tobacco use; Z71.6 Tobacco abuse counseling; E03.9 Hypothyroidism, unspecified; Z85.21 Personal history of malignant neoplasm of larynx; Z88.0 Allergy status to penicillin
CPT/HCPCS: 96361; 93005; 85025; 80048; 36415; 83735; 80076; 84484; 83690; 83880; 71275; 74175; 71045; 96360; 99284; Q9967; J7040; J7030; J2270; J2405

== ENCOUNTER 2021-04-07 07:03 | Emergency (ER) | payer OTHER ==
--- OUTSIDE RECORDS SUMMARY | 2021-04-07 07:08 | XMS REPORT | Continuity of Care Document ---
:1965 Author Organization [facility] t Address [address] [place] [address] [address] [place] [address] Care Team Providers Name Role Phone Meghana Schmitz RN Attending Clinician Unavailable Maryjane RODRIGUEZ, T Attending Clinician Unavailable Pcp, Does Not Have A Attending Clinician Syst, Prov Not In Attending Clinician Unavailable Karina Busby Attending Clinician Singer HUGO Attending Clinician DORIS Attending Clinician Unavailable PROVIDER, NANCY Attending Clinician Unavailable Herb Attending Clinician Unavailable Problems This patient has no known problems. Allergies, Adverse Reactions, Alerts Allergy Allergy Status Severity Reaction(s) Onset Inactive Treating Comm ents Source Name Type Date Date Clinician PCN Adverse Active Info Not [facility] Reaction Available [facility] Clinics Medications Ordered Filled Start Stop Current Ordering Indication Dosage Frequency Signature Comments Components Source Medication Medication Date Date Medication? Clinician (SIG) Name Name Tizanidine Tizanidine 2019-0 Yes Riley [address] [facility] HCl HCl 6-26 [facility] as needed [facility] at [facility] Clinics Levothyroxi Levothyroxi 2019-0 Yes Riley [address] [facility] ne Sodium ne Sodium 4-16 Chelsey in the L ukes - 00:00: morning on [facility] 00 an empty l [facility] Tamsulosin Tamsulosin 2019-0 2020- No Riley [address] [facility] HCl HCl 4-16 10-13 Chelsey [facility] Magnesium Magnesium 2020-0 2020- No Riley [address] [facility] Oxide -Mg Oxide -Mg 02-17-15 Chelsey as needed [facility] - Supplement Supplement 00:00: 00:00 [facility] 00 :00 [facility] Omeprazole Omeprazole 2019-0 Yes Riley [address] [facility] 5-10 [facility]sey [facility] - 00:[facility]: Memoria 00 [facility] Tizanidine Tizanidine Yes Riley [address] [facility] HCl HCl [facility]sey as needed [facility] - [facility] Ipratropium Ipratropium Yes Riley [address] [facility] [place] in each Luke s - nostril [facility] ent [facility] Citalopram Citalopram Yes Riley [address] [facility] Hydrobromid Hydrobromid Chelsey [facility] - e e [facility] Procedures This patient has no known procedures. Encounters Start End Encounter Admission Attending Care Care Encounter Source Date/Time Date/Time Type Type Clinicians Facility Department ID 2021-03-24 2021-03-24 Outpatient [facility] [id number] [facility] 2020-11-27 2020-11-27 Telephone JANINE [id number] 00:00:00 00:00:00 Meghana ONTIVEROSY [id number] [id number] 2020-11-22 2020-11-22 Letter JANINE [id number] 00:00:00 00:00:00 (Out) Valerie Cortes MARKO [id number] [facility] [id number] 2020-11-20 2020-11-20 Nurse JANINE [id number] 00:00:00 00:00:00 Triage Patient MARKO [id number] Does [facility] HOSPITAL [id number] Have A [id number] 2020-11-20 2020-11-20 Letter JANINE Pastrana [id number] 00:00:00 00:00:00 (Out) Referring/P MARKO [id number] cp [facility] [id number] [place] [id number] 2020-11-19 2020-11-19 Emergency [facility] [id number] 19:08:00 20:33:00 Elfego B Radha [id number] [place] [id number] [place] [id number] 2020-09-14 2020-09-14 Outpatient STLMLC STLC [id number] [facility] 2020-09-14 2020-09-14 Outpatient [facility]LMLC [facility]ML[facility] [id number] [facility] 2020-09-07 2020-09-07 Outpatient [facility]ML[facility] [id number] [facility] 2020-09-06 2020-09-06 Outpatient [facility]LMLC [facility] [id number] [facility] 2020-05-03 2020-05-03 [facility] [id number] [facility] 13:00:00 13:00:00 t Specialty/U Jenny [facility] 2020-04-28 2020-04-28 [facility] [id number] [address] 11:25:00 11:25:00 t [facility] [facility] Outpati ent Clinics 2020-04-05 2020-04-05 [facility] [id number] [facility] 15:01:00 15:01:00 t Specialty/U Jenny kes - Specialty rology [facility] /Urology Clinic l Clinic Outpati ent Clinics 2020-03-25 2020-03-25 [facility] [id number] [address] 10:15:00 10:15:00 t Mitralign Lu s - [facility] 2020-03-02 2020-03-02 [facility] [id number] [facility] 12:39:00 12:39:00 t Specialty/U Jenny kes - Specialty rology [facility] /Urology Clinic l [facility] 2020-02-29 2020-02-29 [facility] [id number] [address] 14:00:00 14:00:00 t Specialty/U Jenny kes - Specialty rology [facility]rology Clinic l [facility] 2019-06-01 2019-06-01 Emergency Wynn, [facility] [id number] 08:49:26 10:20:00 Froilan Garcia [id number] [place] [id number] [place] [id number] Results Test Description Test Time Test [...] = UABLD) Negative Negative Urine Source: Urine [id number] 22:00:00 Test Item Value Reference Range Interpretation Comments Chemistry (test 1.3 ng/mL 0-6.6 N code = CKMBM-T) Chemistry (test Less than < 0.028 code = TROPI-T) 0.010 ng/mL Reference Ra nge 0. 00 - 0.028 ng/mL Negative 0.029 - 0.29 n g/mL Indeterminate Greater or Equa l to 0.3 ng/mL [place] suggests [place] [id number] 19:21:00 Test Item Value Reference Range Interpretation [...] code 29 U/L 8-55 N = ALT) [id number] 19:21:00 Test Item Value Reference Range Interpretation Comments Chemistry (test code = LIP) 27 U/L 8-78 N [id number] 18:58:00 Test Item Value Reference Range Interpretation [...] code = BASO#) 0.0 thou/uL 0.0-0.2 N [id number] 14:29:00 Test Item Value Reference Range Interpretation [...] = UABLD) Negative Negative Urine Source: Urine [id number] 13:32:00 Test Item Value Reference Range Interpretation [...] code 37 U/L 8-55 N = ALT) [id number] 13:10:00 Test Item Value Reference Range Interpretation [...] code = BASO#) 0.1 thou/uL 0.0-0.2 N [id number] 14:04:00 Test Item Value Reference Range Interpretation [...] = UABLD) Negative Negative Urine Source: Urine [id number] 12:39:00 Test Item Value Reference Range Interpretation [...] t been validated for [facility]ove r 70 years of age), women, [...] code 18 U/L 8-55 N = ALT) [id number] 12:39:00 Test Item Value Reference Range Interpretation Comments Chemistry (test code = LIP) 55 U/L 8-78 N [id number] 12:16:00 Test Item Value Reference Range Interpretation [...]
[2021-04-07] MEDS ORDERED: METOCLOPRAMIDE 10 MG/2mL INJ ONE (09:09)
[2021-04-07] MEDS ORDERED: NA CHLORIDE 0.9% 500 ML ONE (09:09)
[2021-04-07] MEDS ORDERED: KETOROLAC 30 MG/ML INJ ONE (09:09)
[2021-04-07] MEDS ORDERED: DIPHENHYDRAMINE 50 MG/ML VIAL ONE (09:09)
[2021-04-07 09:11] LABS: Absolute Lymphocytes (CBC) 0.9 K/uL (0.7-4.9); Hematocrit 40.8 % (39.6-49.0); MPV 8.8 fL (7.6-11.3); RBC Red Blood Cell Count 4.47 M/uL (4.33-5.43)
[2021-04-07 09:29] LABS: Albumin 3.7 g/dL (3.4-5.0); Bilirubin Direct 0.2 mg/dL (0-0.2); Bilirubin Total 0.7 mg/dL (0.2-1.0); Potassium 3.9 mmol/L (3.5-5.1); Protein, Total 7.4 g/dL (6.4-8.2)
--- NOTE | 2021-04-07 09:30 | RAD REPORT ---
EXAM DESCRIPTION: CT - CTHCSPWOC - 04/07/2021 9:05 am CLINICAL HISTORY: ROLDAN, R superior lateral neck pain;Pain, history of radiation therapy for head and n francisco cancer COMPARISON: Head C Spine Mpr Wo Con dated 08/05/2019; SOFT TISSUE NECK W CONTRAST dated 10/22/2015; H ead Brain Wo Cont dated 09/16/2019 TECHNIQUE: Axial 5 mm thick images of the head were obtained. Axial 2 mm thick images of the cervic al spine were obtained with sagittal and coronal reconstruction images generated and reviewed. All CT scans are performed using dose optimization technique as appropriate and may include automated exposure control or mA/KV adjustment according to patient size. FINDINGS: No intracranial hemorrhage, mass, edema or acute intracranial finding. No acute cortical b ased infarction. No cortical edema or sulcal effacement. No extra-axial fluid collections. Hyper aera skylar mastoid air cells are clear. No middle ear abnormality seen. Paranasal sinuses are also large is normal variant with no acute finding. No globe or orbit abnormality seen. No acute bone finding. Subt le lucency in the diploic space lateral right frontal bone dates back to at least 2019 without change . Cervical body height and alignment are normal. No disk space narrowing. No fracture or acute bony abn ormality. Uncovertebral joint hypertrophy causes bilateral bony foraminal encroachment at C5-6. Centr al canal detail is inherently limited. No paraspinal mass or hematoma in the soft tissues. There is no airway compromise. No suspicious soft tissue mass identifiable though this examination is not sufficient for malignancy surveillance. IMPRESSION: Negative CT head examination for acute or significant finding. No significant changes fr om comparison. Negative CT cervical spine examination for acute or significant finding. No suspicious soft tissue m ass, lymphadenopathy or airway compromise. Soft tissue evaluation on this noncontrast imaging is not sufficient as a malignancy surveillance study.
--- NOTE | 2021-04-07 09:34 | RAD REPORT ---
EXAM DESCRIPTION: CT - Abdomen Pelvis W Contrast - 04/07/2021 9:12 am CLINICAL HISTORY: ABD PAIN COMPARISON: Abdomen Pelvis W Contrast dated 09/16/2019; Abdomen Pelvis W Contrast dated 9 TECHNIQUE: Biphasic, helical CT imaging of the abdomen and pelvis was performed following 100 ml non -ionic IV contrast. No oral contrast administered. All CT scans are performed using dose optimization technique as appropriate and may include automated exposure control or mA/KV adjustment according to patient size. FINDINGS: Lung base atelectasis and scarring changes are present without acute finding. No cardiomeg alex or pericardial effusion. Fatty infiltration of the liver is present with no focal lesion. No portal vein abnormality. Pancreas and spleen show no acute findings. Gallbladder is absent. No biliary tree dilatation. Symmetric renal function is seen with no hydronephrosis or suspicious renal mass. No pyelonephritis o r acute parenchymal process. Mostly contracted urinary bladder shows no suspicious finding. No adrena l abnormalities. No prostate gland or seminal vesicle abnormality. No dilated bowel loops or bowel wall thickening. Minimal sigmoid diverticulosis without diverticuliti s. Appendix is normal. Moderate stool volume seen in the right-side of the colon. No colon distention . No free air, free fluid or inflammatory stranding. No mass or bulky lymphadenopathy. Small fat onl y 12 millimeter umbilical hernia present similar to comparison. Inguinal hernia surgical repair trivedi es are present with no unexpected finding. No suspicious bony findings. IMPRESSION: Contrast enhanced CT abdomen and pelvis showing no significant or suspicious finding. No worrisome change from the September 2019 study.
--- NOTE | 2021-04-07 10:10 | ER ---
Nurse's Notes [facility] Name: Miguel Gonzalez Age: 55 yrs Sex: Male : 1965 Arrival Date: 04/07/2021 Time: 07:07 Bed 4 Private MD: Mansi Siddiqi Diagnosis: Right neck pain;Abdominal and pelvic pain Presentation: 04/07 07:35 Chief complaint: Patient states: "I am having pain in my upper stomach around the jd3 pancreases. I had a feeding tube place at one point around that area and the pain today is keeping me from eating. I am also having bad pain in the right side of my neck. that pain in my neck is causing some vision changes in both my eyes and it is making dizzy. this all started about a month ago and has gotten worse.". Coronavirus screen: At this time, the client does not indicate any symptoms associated with coronavirus-19. Ebola Screen: Patient negative for fever greater than or equal to 101.5 degrees Fahrenheit, and additional compatible Ebola Virus Disease symptoms. Initial Sepsis Screen: Does the patient meet any 2 criteria? No. Patient's initial sepsis screen is negative. Does the patient have a suspected source of infection? No. Patient's initial sepsis screen is negative. Risk Assessment: Do you want to hurt yourself or someone else? Patient reports no desire to harm self or others. Onset of symptoms was March 08, 2021. 07:35 Method Of Arrival: Ambulatory jd3 07:35 Acuity: NASRA 3 jd3 Triage Assessment: 08:30 General: Appears distressed, uncomfortable, Behavior is calm, cooperative, appropriate bp for age. Pain: Complains of pain in head. EENT: Reports blurred vision. Neuro: Level of Consciousness is awake, alert, obeys commands, Oriented to Appropriate for age Reports headache. Cardiovascular: No deficits noted. Respiratory: No deficits noted. GI: No signs and/or symptoms were reported involving the gastrointestinal system. : No signs and/or symptoms were reported regarding the genitourinary system. Derm: No deficits noted. Musculoskeletal: No deficits noted. Historical: - Allergies: 07:38 PENICILLINS; jd3 - PMHx: 07:38 Anxiety; enlarged prostate; Hypothyroidism; radiation treatment; throat cancer; jd3 - PSHx: 07:38 Cholecystectomy; Hernia repair; left arm; jd3 - Immunization history:: Adult Immunizations up to date. - Social history:: Smoking status: Patient reports the use of cigarette tobacco products, denies chronic smoking, but will smoke occasionally. Screenin:30 Abuse screen: Denies threats or abuse. Denies injuries from another. Nutritional bp screening: No deficits noted. Tuberculosis screening: No symptoms or risk factors identified. Fall Risk None identified. Assessment: 08:30 General: SEE TRIAGE. bp 09:00 Reassessment: PT TO CT. bp 10:34 Reassessment: PT D/C HOME AMBULATORY, DX WITH ABDOMINAL PAIN. Neuro: Level of bp Consciousness is awake, alert, obeys commands, Oriented to Appropriate for age. Vital Signs: 07:38 BP 115 / 85; Pulse 71; Resp 16 S; Temp 97.7(TE); Pulse Ox 97% on R/A; Weight 79.38 kg jd3 (R); Height 6 ft. 2 in. (187.96 cm) (R); Pain 10/10; 09:00 BP 117 / 81; Pulse 75; Resp 17; Pulse Ox 98% ; bp 10:34 BP 127 / 81; Pulse 75; Resp 17; Temp 97.8; Pulse Ox 97% ; bp 07:38 Body Mass Index 22.47 (79.38 kg, 187.96 cm) jd3 ED Course: 07:07 Patient arrived in ED. es 07:08 Mansi Siddiqi MD is Private Physician. es 07:37 Triage completed. jd3 07:39 Arm band placed on. jd3 08:25 Sterling Henry MD is Attending Physician. kdr 08:26 Ajith Noriega, MICHAEL is Primary Nurse. bp 08:30 Patient has correct armband on for positive identification. Bed in low position. Call bp light in reach. Side rails up X2. 09:00 Inserted saline lock: 20 gauge in left antecubital area, using aseptic technique. Blood bp collected. 09:05 CT Head C Spine In Process Unspecified. EDMS 09:12 CT Abd/Pelvis - IV Contrast Only In Process Unspecified. EDMS 10:08 Mansi Siddiqi MD is Referral Physician. kdr 10:36 No provider procedures requiring assistance completed. IV discontinued, intact, bp bleeding controlled, No redness/swelling at site. Pressure dressing applied. Administered Medications: 08:55 Drug: TORadol - (ketorolac) 15 mg Route: IVP; Site: left antecubital; bp 10:38 Follow up: Response: No adverse reaction; Pain is decreased bp 08:55 Drug: Benadryl (diphenhydrAMINE) 25 mg Route: IVP; Site: left antecubital; bp 10:38 Follow up: Response: No adverse reaction; Pain is decreased bp 08:55 Drug: Reglan (metoCLOPramide) 10 mg Route: IVP; Site: left antecubital; bp 10:38 Follow up: Response: No adverse reaction; Pain is decreased bp 08:55 Drug: NS 0.9% 500 ml Route: IV; Rate: bolus; Site: left antecubital; bp 10:37 Follow up: IV Status: Completed infusion; IV Intake: 500ml bp Intake: 10:37 IV: 500ml; Total: 500ml. bp Outcome: 10:09 Discharge ordered by . kdr 10:36 Discharged to home ambulatory. bp 10:36 Condition: stable 10:36 Discharge instructions given to patient, Instructed on discharge instructions, follow up and referral plans. medication usage, Demonstrated understanding of instructions, follow-up care, medications, Prescriptions given X 4. 10:38 Patient left the ED. bp Signatures: Dispatcher [employer] Sterling Chou MD MD kdr Salyer, Edna es Davies, Jonathon RN RN jAjith Munoz RN RN bp
--- NOTE | 2021-04-07 10:10 | EDPHYS ---
Physician Documentation [facility] Name: Miguel Gonzalez Age: 55 yrs Sex: Male : 1965 Arrival Date: 04/07/2021 Time: 07:07 Bed 4 Private MD: Mansi Siddiqi ED Physician Sterling Henry HPI: 04/07 13:33 This 55 yrs old Male presents to ER via Ambulatory with complaints of Blurred kdr Vision, Neck Pain, <24hrs Old, Abdominal Pain. 13:33 The patient c/o pain to upper right neck and abdomen. The pain in the neck has been kdr ongoing for a few weeks and the abdominal pain a little longer and is associated with where he had had a prior feeding tube. Onset: The symptoms/episode began/occurred gradually, 4 week(s) ago. Severity of symptoms: At their worst the symptoms were mild moderate just prior to arrival, in the emergency department the symptoms are unchanged. The patient has not experienced similar symptoms in the past. The patient has not recently seen a physician. Historical: - Allergies: 07:38 PENICILLINS; jd3 - PMHx: 07:38 Anxiety; enlarged prostate; Hypothyroidism; radiation treatment; throat cancer; jd3 - PSHx: 07:38 Cholecystectomy; Hernia repair; left arm; jd3 - Immunization history:: Adult Immunizations up to date. - Social history:: Smoking status: Patient reports the use of cigarette tobacco products, denies chronic smoking, but will smoke occasionally. ROS: 13:33 Constitutional: Negative for fever, chills, and weight loss, Eyes: Negative for injury, kdr pain, redness, and discharge, ENT: Negative for injury, pain, and discharge, Cardiovascular: Negative for chest pain, palpitations, and edema, Respiratory: Negative for shortness of breath, cough, wheezing, and pleuritic chest pain, Back: Negative for injury and pain, : Negative for injury, bleeding, discharge, and swelling, MS/Extremity: Negative for injury and deformity, Skin: Negative for injury, rash, and discoloration, Neuro: Negative for headache, weakness, numbness, tingling, and seizure activity. Psych: Negative for depression, anxiety, suicide ideation, homicidal ideation, and hallucinations, Allergy/Immunology: Negative for hives, rash, and allergies, Endocrine: Negative for neck swelling, polydipsia, polyuria, polyphagia, and marked weight changes, Hematologic/Lymphatic: Negative for swollen nodes, abnormal bleeding, and unusual bruising. 13:33 Neck: Positive for pain at rest, tenderness. Exam: 13:33 Constitutional: This is a well developed, well nourished patient who is awake, alert, kdr and in no acute distress. Head/Face: Normocephalic, atraumatic. Eyes: Pupils equal round and reactive to light, extra-ocular motions intact. Lids and lashes normal. Conjunctiva and sclera are non-icteric and not injected. Cornea within normal limits. Periorbital areas with no swelling, redness, or edema. Chest/axilla: Normal chest wall appearance and motion. Nontender with no deformity. No lesions are appreciated. Cardiovascular: Regular rate and rhythm with a normal S1 and S2. No gallops, murmurs, or rubs. Normal PMI, no JVD. No pulse deficits. Respiratory: Lungs have equal breath sounds bilaterally, clear to auscultation and percussion. No rales, rhonchi or wheezes noted. No increased work of breathing, no retractions or nasal flaring. Back: No spinal tenderness. No costovertebral tenderness. Full range of motion. Skin: Warm, dry with normal turgor. Normal color with no rashes, no lesions, and no evidence of cellulitis. MS/ Extremity: Pulses equal, no cyanosis. Neurovascular intact. Full, normal range of motion. Neuro: Awake and alert, GCS 15, oriented to person, place, time, and situation. Cranial nerves II-XII grossly intact. Motor strength 5/5 in all extremities. Sensory grossly intact. Cerebellar exam normal. Normal gait. Psych: Awake, alert, with orientation to person, place and time. Behavior, mood, and affect are within normal limits. 13:33 Neck: External neck: tenderness, that is mild, of the right posterior aspect of neck. 13:33 Abdomen/GI: Inspection: abdomen appears normal, Bowel sounds: normal, Palpation: soft. Vital Signs: 07:38 BP 115 / 85; Pulse 71; Resp 16 S; Temp 97.7(TE); Pulse Ox 97% on R/A; Weight 79.38 kg jd3 (R); Height 6 ft. 2 in. (187.96 cm) (R); Pain 10/10; 09:00 BP 117 / 81; Pulse 75; Resp 17; Pulse Ox 98% ; bp 10:34 BP 127 / 81; Pulse 75; Resp 17; Temp 97.8; Pulse Ox 97% ; bp 07:38 Body Mass Index 22.47 (79.38 kg, 187.96 cm) jd3 MDM: 10:09 Patient medically screened. kdr 13:33 Data reviewed: vital signs, nurses notes, lab test result(s), radiologic studies. kdr Counseling: I had a detailed discussion with the patient and/or guardian regarding: the historical points, exam findings, and any diagnostic results supporting the discharge/admit diagnosis, lab results, radiology results, the need for outpatient follow up. Response to treatment: the patient's symptoms have mildly improved after treatment. Special discussion: I discussed with the patient/guardian in detail that at this point there is no indication for admission to the hospital. It is understood, however, that if the symptoms persist or worsen the patient needs to return immediately for re-evaluation. 04/07 08:39 Order name: Basic Metabolic Panel; Complete Time: 10: kdr 04/07 08:39 Order name: CBC with Diff; Complete Time: 10: kdr 04/07 08:39 Order name: CT Head C Spine; Complete Time: 10: kdr 04/07 08:39 Order name: CT Abd/Pelvis - IV Contrast Only; Complete Time: 10:02 kdr 04/07 08:39 Order name: Hepatic Function; Complete Time: 10:02 kdr 04/07 08:39 Order name: Lipase; Complete Time: 10:02 kdr 04/07 08:39 Order name: IV Saline Lock; Complete Time: 08:59 kdr 04/07 08:39 Order name: Labs collected and sent; Complete Time: 08:59 kdr Administered Medications: 08:55 Drug: TORadol - (ketorolac) 15 mg Route: IVP; Site: left antecubital; bp 10:38 Follow up: Response: No adverse reaction; Pain is decreased bp 08:55 Drug: Benadryl (diphenhydrAMINE) 25 mg Route: IVP; Site: left antecubital; bp 10:38 Follow up: Response: No adverse reaction; Pain is decreased bp 08:55 Drug: Reglan (metoCLOPramide) 10 mg Route: IVP; Site: left antecubital; bp 10:38 Follow up: Response: No adverse reaction; Pain is decreased bp 08:55 Drug: NS 0.9% 500 ml Route: IV; Rate: bolus; Site: left antecubital; bp 10:37 Follow up: IV Status: Completed infusion; IV Intake: 500ml bp Disposition: 04/07/21 10:09 Discharged to Home. Impression: Right neck pain, Abdominal and pelvic pain. - Condition is Stable. - Discharge Instructions: Abdominal Pain, Adult, [id number]-[id number], Cervical Sprain, Cqcz-qr-[id number]. - Prescriptions for Bentyl 20 mg Oral Tablet - take 1 tablet by ORAL route every 6 hours As needed; 20 tablet. Pepcid 20 mg Oral Tablet - take 1 tablet by ORAL route every 12 hours for 5 days; 10 tablet. Robaxin 500 mg Oral Tablet - take 2 tablet by ORAL route every 6 hours As needed; 40 tablet. Tramadol 50 mg Oral Tablet - take 1 tablet by ORAL route every 8 hours as needed; 12 tablet. - Medication Reconciliation Form, Thank You Letter, Prescription Opioid Use, Work release form form. - Follow up: Mansi Siddiqi MD; When: 2 - 3 days; Reason: If symptoms return, Further diagnostic work-up, Recheck today's complaints, Continuance of care, Re-evaluation by your physician. - Problem is chronic. - Symptoms have improved. Signatures: Dispatcher [employer] EDMS Sterling Henry MD MD kdr Davies, Jonathon, RN RN jAjith Munoz RN RN bp Corrections: (The following items were deleted from the chart) 10:38 10:09 04/07/2021 10:09 Discharged to Home. Impression: Right neck pain; Abdominal and bp pelvic pain. Condition is Stable. Forms are Medication Reconciliation Form, Thank You Letter, Antibiotic Education, Prescription Opioid Use. Follow up: Mansi Siddiqi; When: 2 - 3 days; Reason: If symptoms return, Further diagnostic work-up, Recheck today's complaints, Continuance of care, Re-evaluation by your physician. Problem is chronic. Symptoms have improved. kdr
[2021-04-07 10:49] VITALS: BP 127/81; TEMP 97.8; O2SAT 97
== END 2021-04-07 10:38 | disposition home or self-care (01) ==
LOC: ER 07:03
DX: M54.2 Cervicalgia (principal); R10.2 Pelvic and perineal pain; R10.9 Unspecified abdominal pain; F41.9 Anxiety disorder, unspecified; N40.0 Benign prostatic hyperplasia without lower urinary tract symptoms; E03.9 Hypothyroidism, unspecified; Z85.819 Personal history of malignant neoplasm of unspecified site of lip, oral cavity, and pharynx; F17.210 Nicotine dependence, cigarettes, uncomplicated
CPT/HCPCS: 96361; 85025; 80048; 36415; 82565; 80076; 83690; 70450; 72125; 74177; 96375; 96374; 99284; Q9967; J2765; J1200; J7040

== ENCOUNTER 2021-06-28 10:27 | Emergency (ER) | payer OTHER ==
--- OUTSIDE RECORDS SUMMARY | 2021-06-28 10:31 | XMS REPORT | Continuity of Care Document ---
:1965 Author Organization [facility] t Address [address] [place] [address] [place] [address] Care Team Providers Name Role Phone Meghana Schmitz RN Attending Clinician Unavailable Maryjane RODRIGUEZ T Attending Clinician Unavailable Pcp, Does Not [...] Active Info Not [facility] Reaction Available [facility] ent Clinics Medications Ordered Filled Start Stop Current Ordering Indication Dosage Frequency Signature Comments Components Source Medication Medication Date Date Medication? Clinician (SIG) Name Name Tizanidine Tizanidine 2019-0 Yes Riley [address] [facility] HCl HCl 6-26 [place] as needed [facility] - [facility]: at bedtime [facility] 00 l [facility] ent Clinics Levothyroxi Levothyroxi 2019-0 Yes Riley [address] [facility] ne Sodium ne Sodium 4-16 [place] in the L ukes - 00:00: morning on Memoria 00 an empty l stomach [facility] ent Clinics Tamsulosin Tamsulosin 2019-0 2020- No Riley [address] [facility] HCl HCl 4-16 10-13 [place] [facility] - 00:[facility]: 00:00 [facility] 00 :00 [facility] Magnesium Magnesium 2020-0 2020- No Riley [address] [facility] Oxide -Mg Oxide -Mg 02-17 [place] as needed [facility] - Supplement Supplement 00:00: 00:00 [facility] 00 :00 [facility] Omeprazole Omeprazole 2018-0 Yes Riley [address] [facility] 5-10 [place] [facility] - 00[facility]: [facility] 00 l [facility] Clinics Tizanidine Tizanidine Yes Riley [address] [facility] HCl HCl [place] as needed [facility]ics Ipratropium Ipratropium Yes Riley [address] [facility] [place] in each Luke s - nostril [facility] Citalopram Citalopram Yes Riley [address] [facility] Hydrobromid Hydrobromid [place] [facility] Procedures This patient has no known procedures. Encounters Start End Encounter Admission Attending Care Care Encounter Source Date/Time Date/Time Type Type Clinicians Facility Department ID 2021-05-26 2021-05-[address] [id number] 2021-03-24 2021-03-24 [facility] [id number] [facility] 2020-11-27 2020-11-27 Telephone JANINE [id number] 00:00:00 00:00:00 Meghana ZHU [id number] [facility] [id number] 2020-11-22 2020-11-22 Letter JANINE [id number] 00:00:00 00:00:00 (Out) Valerie ZHU [id number] [facility] [id number] 2020-11-20 2020-11-20 Nurse JANINE [id number] 00:00:00 00:00:00 Triage Patient MARKO [id number] Does Not HOSPITAL [id number] Have A [id number] 2020-11-20 2020-11-20 Letter JANINE Pastrana [id number] 00:00:00 00:00:00 (Out) Referring/P MARKO [id number] cp Prov Not HOSPITAL [id number] In [id number] 2020-11-19 2020-11-19 [facility] [id number] 19:08:00 20:33:00 Elfego Garcia [id number] [place] [id number] [place] [id number] 2020-09-14 2020-09-[address] [id number] 2020-09-14 2020-09-[address] [facility] [id number] [facility] 2020-09-07 2020-09-[address] [facility] [id number] 2020-09-06 2020-09-[address] [facility] [id number] [facility] 2020-05-03 2020-05-03 [facility] [id number] [facility] 13:00:00 13:00:00 t Specialty/U Jenny kes - Specialty rology [facility] a /Urology Clinic l Clinic Outpati ent Clinics 2020-04-28 2020-04-28 [facility] [id number] [address] 11:25:00 11:25:00 t [facility] Family Medicine l Medicine Outpati ent Clinics 2020-04-05 2020-04-05 [facility] [id number] 15:01:00 15:01:00 t Specialty/U Jenny kes - Specialty rology [facility] /Urology Clinic l Clinic Outpati ent Clinics 2020-03-25 2020-03-25 [facility] [id number] 10:15:00 10:15:[address] Luke [facility] - Drive Family [facility] Medicine [facility] 2020-03-02 2020-03-02 [facility] [id number] 12:39:00 12:39:00 t Specialty/U Jenny kes - Specialty rology [facility] /Urology Clinic l [facility] 2020-02-29 2020-02-29 [facility] [id number] 14:00:00 14:00:00 t Specialty/U Jenny kes - Specialty rology [facility]rology [facility] 2019-06-01 2019-06-01 Emergency [place], [facility] [id number] 08:49:26 10:20:00 Froilan Garcia [id number] [place] [id number] [place] [id number] Results Test Description Test Time Test [...] = UABLD) Negative Negative Urine Source: Urine [id number] 22:00:00 Test Item Value Reference Range Interpretation Comments Chemistry (test 1.3 ng/mL 0-6.6 N code = CKMBM-T) Chemistry (test Less than < 0.028 code = TROPI-T) 0.010 ng/mL Reference Ra nge 0. 00 - 0.028 ng/mL Negative 0.029 - 0.29 n g/mL Indeterminate Greater or Equa l to 0.3 ng/mL [place] suggests [place] [id number] 19:21:00 Test Item Value Reference Range Interpretation [...] code 29 U/L 8-55 N = ALT) [id number] 19:21:00 Test Item Value Reference Range Interpretation Comments Chemistry (test code = LIP) 27 U/L 8-78 N [id number] 18:58:00 Test Item Value Reference Range Interpretation [...] code = BASO#) 0.0 thou/uL 0.0-0.2 N [id number] 14:29:00 Test Item Value Reference Range Interpretation [...] = UABLD) Negative Negative Urine Source: Urine [id number] 13:32:00 Test Item Value Reference Range Interpretation [...] code 37 U/L 8-55 N = ALT) [id number] 13:10:00 Test Item Value Reference Range Interpretation [...] code = BASO#) 0.1 thou/uL 0.0-0.2 N [id number] 14:04:00 Test Item Value Reference Range Interpretation [...] = UABLD) Negative Negative Urine Source: Urine [id number] 12:39:00 Test Item Value Reference Range Interpretation [...] code 18 U/L 8-55 N = ALT) [id number] 12:39:00 Test Item Value Reference Range Interpretation Comments Chemistry (test code = LIP) 55 U/L 8-78 N [id number] 12:16:00 Test Item Value Reference Range Interpretation [...]
[2021-06-28 12:52] LABS: SARS-COV-2 RT PCR NEGATIVE (NEGATIVE)
--- NOTE | 2021-06-28 13:59 | EDPHYS ---
Physician Documentation [facility] Name: Miguel Gonzalez Age: 55 yrs Sex: Male : 1965 Arrival Date: 06/28/2021 Time: 10:28 Bed Waiting Private MD: MENDEZ Physician Roldan Rogel HPI: 06/28 14:11 This 55 yrs old Male presents to ER via Ambulatory with complaints of kb Headache, Fever, Weakness. 14:11 The patient or guardian reports flu symptoms, low-grade fever, myalgias, no appetite. kb The patient has not experienced similar symptoms in the past. The patient has not recently seen a physician. 14:11 Onset: The symptoms/episode began/occurred 3 day(s) ago. Severity of symptoms: At their kb worst the symptoms were mild, in the emergency department the symptoms are unchanged. Modifying factors: The symptoms are alleviated by nothing, the symptoms are aggravated by nothing. Associated signs and symptoms: Pertinent positives: fever. 14:13 Patient complains of body aches, low-grade fever, chills, fatigue, malaise and kb decreased appetite for 3 days. Denies nausea vomiting diarrhea.. Historical: - Allergies: 11:08 PENICILLINS; aa5 - PMHx: 11:08 Anxiety; enlarged prostate; Hypothyroidism; radiation treatment; throat cancer; aa5 - Immunization history:: Client reports receiving the 2nd dose of the Covid vaccine. - Social history:: Smoking status: Patient reports the use of cigarette tobacco products, 3-4 cigarettes a day. ROS: 14:12 Respiratory: Negative for shortness of breath, cough, wheezing, and pleuritic chest kb pain. 14:12 Constitutional: Positive for body aches, chills, fatigue, fever, malaise, poor PO intake. 14:12 All other systems are negative. Exam: 14:13 Constitutional: This is a well developed, well nourished patient who is awake, alert, kb and in no acute distress. Head/Face: Normocephalic, atraumatic. ENT: Moist Mucous membranes Cardiovascular: Regular rate and rhythm with a normal S1 and S2. No gallops, murmurs, or rubs. No pulse deficits. Respiratory: Respirations even and unlabored. No increased work of breathing, no retractions or nasal flaring. Skin: Warm, dry with normal turgor. Normal color. MS/ Extremity: Pulses equal, no cyanosis. Neurovascular intact. Full, normal range of motion. Neuro: Awake and alert, GCS 15, oriented to person, place, time, and situation. Moves all extremities. Normal gait. Psych: Awake, alert, with orientation to person, place and time. Behavior, mood, and affect are within normal limits. Vital Signs: 11:07 BP 127 / 81; Pulse 68; Resp 18 S; Temp 98.3(O); Pulse Ox 99% on R/A; Weight 90.72 kg aa5 (R); Height 6 ft. 2 in. (187.96 cm); 11:07 Body Mass Index 25.68 (90.72 kg, 187.96 cm) aa5 MDM: 11:33 Patient medically screened. kb 14:13 Data reviewed: vital signs, nurses notes. Data interpreted: Pulse oximetry: on room air kb is 99 %. Interpretation: normal. Counseling: I had a detailed discussion with the patient and/or guardian regarding: the historical points, exam findings, and any diagnostic results supporting the discharge/admit diagnosis, lab results, the need for outpatient follow up, a family practitioner, to return to the emergency department if symptoms worsen or persist or if there are any questions or concerns that arise at home. 06/28 12:53 Order name: COVID-19/FLU A+B; Complete Time: 12:55 EDMS Administered Medications: No medications were administered Disposition Summary: 06/28/21 13:58 Discharge Ordered Location: Home kb Condition: Stable kb Diagnosis - Viral infection, unspecified kb Followup: kb - With: Emergency Department - When: As needed - Reason: Worsening of condition Followup: kb - With: Private Physician - When: 2 - 3 days - Reason: Recheck today's complaints, Continuance of care, Re-evaluation by your physician Discharge Instructions: - Discharge Summary Sheet kb - Viral Illness, Adult kb Forms: - Medication Reconciliation Form kb - Thank You Letter kb - Antibiotic Education kb - Prescription Opioid Use kb Addendum: 06/29/2021 14:47 Co-signature as Attending Physician, Roldan Rogel MD I agree with the assessment and c colmenares plan of care. Signatures: Dispatcher [employer] EDJigna Noonan, AYAZ-Julissa JACOME-CkRoldan Smith MD MD cha Calderon, Audri, RN RN aa5 Corrections: (The following items were deleted from the chart) 06/28 12: 11:09 Influenza Screen (A \T\ B)+BA.ADRIANNE.KAMRYN ordered. EDMS EDMS 11:09 CORONAVIRUS+MRJASMINA.KAMRYN ordered. EDMS EDMS
--- NOTE | 2021-06-28 13:59 | ER ---
Nurse's Notes [facility] Name: Miguel Gonzalez Age: 55 yrs Sex: Male : 1965 Arrival Date: 06/28/2021 Time: 10:28 Bed Waiting Private MD: Diagnosis: Viral infection, unspecified Presentation: 06/28 11:05 Chief complaint: Patient states: body aches, low grade fever, chills, charity pain to feet, aa5 fatigue x 3 days ago. Pt denies cough/congestion. Pt reports he is taking amoxicillin per dentist. Coronavirus screen: chills, fever, muscle pain. Ebola Screen: Patient negative for fever greater than or equal to 101.5 degrees Fahrenheit, and additional compatible Ebola Virus Disease symptoms. Initial Sepsis Screen: Does the patient meet any 2 criteria? No. Patient's initial sepsis screen is negative. Does the patient have a suspected source of infection? No. Patient's initial sepsis screen is negative. Risk Assessment: Do you want to hurt yourself or someone else? Patient reports no desire to harm self or others. Onset of symptoms was June 2021. 11:05 Method Of Arrival: Ambulatory aa5 11:05 Acuity: NASRA 4 aa5 Historical: - Allergies: 11:08 PENICILLINS; aa5 - PMHx: 11:08 Anxiety; enlarged prostate; Hypothyroidism; radiation treatment; throat cancer; aa5 - Immunization history:: Client reports receiving the 2nd dose of the Covid vaccine. - Social history:: Smoking status: Patient reports the use of cigarette tobacco products, 3-4 cigarettes a day. Screenin:03 Abuse screen: Denies threats or abuse. Denies injuries from another. Nutritional ss screening: No deficits noted. Tuberculosis screening: Never had TB. Fall Risk None identified. Assessment: 14:03 Reassessment: Patient appears in no apparent distress at this time. Patient and/or ss family updated on plan of care and expected duration. Pain level reassessed. Patient is alert, oriented x 3, equal unlabored respirations, skin warm/dry/pink. Vital Signs: 11:07 BP 127 / 81; Pulse 68; Resp 18 S; Temp 98.3(O); Pulse Ox 99% on R/A; Weight 90.72 kg aa5 (R); Height 6 ft. 2 in. (187.96 cm); 11:07 Body Mass Index 25.68 (90.72 kg, 187.96 cm) aa5 ED Course: 10:28 Patient arrived in ED. as 10:58 Jigna Acevedo FNP-C is [facility] kb 10:58 Roldan Rogel MD is Attending Physician. kb 11:05 Arm band placed on. aa5 11:07 Triage completed. aa5 14:03 Patient has correct armband on for positive identification. Bed in low position. ss 14:03 No provider procedures requiring assistance completed. Patient did not have IV access ss during this emergency room visit. Administered Medications: No medications were administered Outcome: 13:58 Discharge ordered by MD. kb 14:08 Discharged to home ambulatory. ss 14:08 Condition: good 14:08 Discharge instructions given to patient, Instructed on discharge instructions, follow up and referral plans. Demonstrated understanding of instructions, follow-up care. 14:09 Patient left the ED. ss Signatures: Jigna Acevedo FNP-C FNP-Harmony Kline as Rekha Abdullahi, RN RN aa5 Kinsey Sanchez RN RN ss Corrections: (The following items were deleted from the chart) 11:08 11:05 Chief complaint: Patient states: body aches, low grade fever, chills, charity pain to aa5 feet, fatigue x 3 days ago. Pt denies cough/congestion. aa5
[2021-06-28 14:30] VITALS: BP 127/81; TEMP 98.3; O2SAT 99
== END 2021-06-28 14:09 | disposition home or self-care (01) ==
LOC: ER 10:27
DX: B34.9 Viral infection, unspecified (principal); F17.210 Nicotine dependence, cigarettes, uncomplicated; Z20.822 Contact with and (suspected) exposure to COVID-19; Z88.0 Allergy status to penicillin
CPT/HCPCS: 0240U; 99281

== ENCOUNTER 2021-12-20 07:06 | Day surgery (SDC) | payer OTHER ==
[2021-12-18 08:59] LABS: Potassium 4.3 mmol/L (3.5-5.1)
[2021-12-20] MEDS ORDERED: Ringers Lactate 1,000 ML IV ONE (07:11)
--- NOTE | 2021-12-20 08:25 | ENDO RPT ---
[address], [address] EGD PROCEDURE REPORT EXAM DATE: 12/20/2021 PATIENT NAME: Miguel Gonzalez MR#: [id number] BIRTHDATE: 1965 ATTENDING: Wiliam Price DR STATUS: outpatient RETAIL ASSISTANT STORE MANAGER: Precious Hightower RN INDICATIONS: The patient is a 56 yr old Male here for an EGD due to dysphagia, epigastric pain, and GERD PROCEDURE PERFORMED: EGD with biopsy for H. pylori MEDICATIONS: Per Anesthesia. TOPICAL ANESTHETIC: none CONSENT: The patient understands the risks and benefits of the procedure and understands that these risks include, but are not limited to: sedation, allergic reaction, infection, perforation and/or bleeding. Alternative means of evaluation and treatment include, among others: physical exam, x-rays, and/or surgical intervention. The patient elects to proceed with this endoscopic procedure. DESCRIPTION OF PROCEDURE: During intra-op preparation period all mechanical medical equipment was checked for proper function. Hand hygiene and appropriate measures for infection prevention was taken. Procedure, possible complications, and alternatives including but not limited to the possibility of bleeding, perforation, tear, infection, sepsis, need for surgery, need for blood transfusion, and anesthesia related complications were explained to the patient. After the risks, benefits and alternatives of the procedure were thoroughly explained, Informed consent was verified, confirmed and timeout was successfully executed by the treatment team. The patient was placed in the left lateral position. The patient was anesthetized with topical anesthesia. Through the anesthetized oropharyngeal area, the scope was passed without any difficulty. The [id number] ([id number]) endoscope was introduced through the mouth and advanced to the second portion of the duodenum. Retroflexion was not performed. The gastroscope was then slowly withdrawn and removed. LA Class A esophagitis was found in the gastroesophageal junction. With standard forceps, a biopsy was obtained and sent to pathology. Retained food was present in the total stomach. Large burden of [place] retained in stomach and duodenum Duodenitis was found in the second portion of the duodenum. A sessile polyp was found in the second portion of the duodenum. erythematous food-containing firm hyperemic non-bleeding With standard forceps, a biopsy was obtained and sent to pathology. ADVERSE EVENTS: There were no complications. IMPRESSIONS: 1. LA Class A esophagitis was found in the gastroesophageal junction 2. Retained food was present in the total stomach 3. Duodenitis was found in the second portion of the duodenum 4. A sessile polyp was found in the second portion of the duodenum RECOMMENDATIONS: 1. acid suppression therapy 2. anti-reflux regimen 3. await biopsy results 4. follow-up: office 1 week(s) 5. avoid NSAIDS 6. follow-up of helicobacter pylori status, treat if indicated REPEAT EXAM: Return in 1 week(s) for EGD. Prep and NPO for longer perior of time Wiliam Price DR eSigned: Wiliam Price DR 12/20/2021 8:25 AM cc: CPT CODES: ICD9 CODES: PATIENT NAME: Miguel Gonzalez MR#: [id number]
[2021-12-20] MEDS ORDERED: LIDOCAINE 1% MPF 30 ML VIAL ONE (08:38)
[2021-12-20] MEDS ORDERED: propofoL 200 MG/20 ML VIAL IV ONE (08:38)
[2021-12-20 08:44] VITALS: TEMP 97.6
[2021-12-20 09:43] VITALS: BP 107/70; O2SAT 98
== END 2021-12-20 09:05 | disposition home or self-care (01) ==
LOC: OR 07:06
PROVIDERS: ATTEND Surgery
PROC: 0DB58ZX Excision of Esophagus, Via Natural or Artificial Opening Endoscopic, Diagnostic (ICD-10-PCS; 2021-12-20)
PROC: 0D598ZZ Destruction of Duodenum, Via Natural or Artificial Opening Endoscopic (ICD-10-PCS; principal; 2021-12-20 08:00)
DX: R13.10 Dysphagia, unspecified (principal); K21.9 Gastro-esophageal reflux disease without esophagitis; R10.13 Epigastric pain; K21.00 Gastro-esophageal reflux disease with esophagitis, without bleeding; K31.7 Polyp of stomach and duodenum; K29.80 Duodenitis without bleeding; Z20.822 Contact with and (suspected) exposure to COVID-19
CPT/HCPCS: 80048; 36415; 88305; 43270; 43239; U0003; J2704; J7120